=== PATIENT | female | born 1980 | race Caucasian/White ===

== ENCOUNTER → 2019-05-22 12:35 | Outpatient (BNVA) | payer MEDICAID, SELFPAY | PROVIDERS: Family Provider Family Medicine; PCP Family Medicine; Visit Provider Nurse Practitioner | DX: R05 Cough (principal); R50.9 Fever, unspecified | CPT/HCPCS: 87804 ==

== ENCOUNTER 2020-06-16 09:14 | Outpatient (CLI) | payer MEDICAID, SELFPAY ==
[2019-05-09 11:19] VITALS: BP 164/89; BMI 54.0
--- NOTE | 2020-06-16 09:16 | MM_ITS ---
WS: [id number] Bilateral screening digital mammogram, 06/16/2020 Clinical Data: SCREENING Comparison: None. Findings: The breast parenchymal pattern shows fat replacement. No spiculated masses or clustered calcification s are seen. There are no secondary signs of carcinoma. MM/[place] [id number] Impression: 1. Negative bilateral mammogram with no prior exam for review. 2. Recommend annual screening mammograms. BIRADS: 1-Negative FOLLOW UP: 1 Year Follow-up The CAD quality checker was used.
== END 2020-06-16 09:15 | disposition home or self-care (01) ==
LOC: RADSHAW 09:15
PROVIDERS: PCP Nurse Practitioner Family; Visit Provider Nurse Practitioner Family
DX: Z12.31 Encounter for screening mammogram for malignant neoplasm of breast (principal)
CPT/HCPCS: 77067

== ENCOUNTER 2020-09-07 10:29 | Outpatient (CLI) | payer MEDICAID, SELFPAY ==
[2019-05-09 11:19] VITALS: BP 164/89; BMI 54.0
--- NOTE | 2020-09-07 10:39 | FL_ITS ---
WS: [id number] UPPER GI WITH AIR TECHNICAL: Double contrast upper GI. FLUOROSCOPY TIME: 2.5 minutes CLINICAL INFORMATION: Z71.89 - Other specified counseling COMPARISON: None. FINDINGS: Swallowing: Normal. Esophagus: Mild esophageal dysmotility. No stricture. Evidence of reflux esophagitis distal esophagus . Gastroesophageal reflux: Marked reflux is visualized to the upper thoracic esophagus and hypopharynx in the supine position. Stomach: Small esophageal hiatal hernia. Duodenum: Normal duodenal C-loop. Other findings: None. FL/FL upper GI w air* [id number] IMPRESSION: 1. Marked reflux is visualized to the upper thoracic esophagus and hypopharynx in the supine position. 2. Small esophageal hiatal hernia. 3. Otherwise normal double contrast stomach.
== END 2020-09-07 10:30 | disposition home or self-care (01) ==
PROVIDERS: PCP Nurse Practitioner Family; Visit Provider Surgery
DX: Z71.89 Other specified counseling (principal); K44.9 Diaphragmatic hernia without obstruction or gangrene; K21.9 Gastro-esophageal reflux disease without esophagitis
CPT/HCPCS: 74246

== ENCOUNTER 2020-11-01 18:58 | Inpatient (IN) | payer MEDICAID, SELFPAY ==
[2019-05-09 11:19] VITALS: BP 164/89; BMI 54.0
[2020-11-01] VITALS (8 sets, daily range): BP systolic 119–137; BP diastolic 67–97; PULSE 86–90; RESP 20–25; TEMP 36.8; O2SAT 81–94; BMI 50.6
--- NOTE | 2020-11-01 19:34 | ECG_ITS ---
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 Measurements Intervals [place] Rate: 91 P: 38 WA: 137 QRS: 40 QRSD: 88 T: 51 QT: 351 QTc: 434 Interpretive Statements SINUS RHYTHM LOW QRS VOLTAGE IN PRECORDIAL LEADS [QRS DEFLECTION < 1.0 mV IN CHEST LEADS] POSSIBLE RIGHT VENTRICULAR CONDUCTION DELAY [RSR (QR) IN V1/V2] No previous ECG available for comparison Electronically Signed On 11-05-2020 9:56:41 CDT by Alona Lacey M.D. [id number]
--- NOTE | 2020-11-01 19:34 | XRR_ITS ---
PROCEDURE INFORMATION: Exam: XR Chest Exam date and time: 11/01/2020 7:34 PM Age: 40 years old Clinical indication: Cough TECHNIQUE: Imaging protocol: XR of the chest. Views: 1 view. COMPARISON: CR FL upper GI w air* [id number] 09/07/2020 10:44 AM FINDINGS: Lungs: Patchy granular somewhat nodular opacities widely distributed throughout both lungs apparent. Decreased lung volumes in general. Pleural spaces: Unremarkable. No pleural effusion. No pneumothorax. Heart/Mediastinum: Unremarkable. No cardiomegaly. Bones/joints: Unremarkable. XR/XR chest 1V portable [id number] IMPRESSION: 1. Extensive airspace disease bilaterally. 2. Atypical pneumonia such as COVID-19 pneumonia is suspected.
--- NOTE | 2020-11-01 19:36 | ED_ITS ---
HPI - General Adult General: Chief complaint: Abdominal Pain Stated complaint: Cant Breathe\Family Covid + Time Seen by Provider: 11/01/20 19:29 History of Present Illness: HPI narrative: This patient is a 40-year-old female who presents to the emergency department with diabetes hypertension with a complaint of shortness of breath. Patient states she has not been accepted with Covid. Patient states that her son was diagnosed with Covid 4 days ago. States he is improving but she believes she has got it. Patient's O2 sat on room air after ambulating was 83%. We will do medical evaluation treat as needed. Patient does not have a history of asthma or any breathing related issues. Onset (ago): hour(s) Location: chest Radiation: non-radiation Severity: moderate Pain Consistency: constant Relieving factors: none Exacerbating factors: none Associated symptoms: Reports dyspnea; Deny chest pain, headache(s), nausea, rash, palpitations or vomiting Review of Systems General: Reports: 10 or more systems reviewed and unremarkable except in HPI and below Const: Reports: body aches and fatigue; Denies: fever(s) or chills Eyes: Denies: change in vision or blurry vision ENMT: Denies: throat pain, hoarseness or mouth pain Card: Denies: chest pain, palpitations, irregular heart rhythm, edema, swelling of feet/ankles or lightheadedness Resp: Reports: dyspnea and non-productive cough; Denies: productive cough, wheezing or pain on inspiration GI: Denies: abdominal pain, nausea or vomiting : Denies: flank pain, difficulty voiding, dysuria, urinary frequency, urinary urgency or urinary hesitancy Musc: Denies: neck pain, back pain, extremity pain, extremity swelling, joint pain, joint swelling, joint redness, joint warmth or limited range of motion Skin/Breast: Denies: rash, pruritus, erythema or skin tenderness Neuro: Denies: headache(s), numbness in extremities or weakness in extremities Psych: Denies: anxiety or depression PFSH ED PFSH: Family History Denies family history of Anesthesia complication Bleeding disorder Social History Smoking and tobacco status: never smoked Second hand smoke exposure: Yes Alcohol intake: current Alcohol intake frequency: holidays/special occasions only Alcohol type: wine Desire information about alcohol rehabilitation?: No Adopted: Yes Caregiver/support person: Yes Lives independently: Yes Household members: spouse and children Housing: Apartment Marital status: Number of children: 1 Number of grandchildren: 0 Highest education level completed: High School Graduate service: No Current occupational status: disabled Current occupational exposures/hazards: No Pets and animals: Yes Pets & animals: cat(s) and dog(s) Pets & animal details: 1 indoor cat and dog, 2 outdoor cats History of recent travel: No Leisure activites: reading Sexually active: Yes Current gender identity: Female Keysha/Denominational: Nondenominational Special keysha needs: No Agree to transfusion: Yes Financial difficulty paying for basics: Somewhat Hard Female Reproductive History: Date of last menstrual period: 04/29/19 Para: 1 Spontaneous abortions: No Physical Exam Const: COMMON NORMALS: no acute distress, average body habitus, patient oriented x3, no limitations, healthy appearing, alert and well nourished HENMT: COMMON NORMALS: normocephalic, atraumatic, hearing grossly normal bilaterally, external ears normal, EAC's normal, TM's normal bilaterally, Normal external nose present, Normal nasal mucous membranes and turbinates present, moist oral mucous membranes, oropharynx normal, dentition normal and gingiva normal HEAD & SCALP: normocephalic and atraumatic NOSE: Normal external nose present and Normal nasal mucous membranes and turbinates present EXTERNAL EAR: Yes external ears normal EXTERNAL AUDITORY CANAL: EAC's normal TYMPANIC MEMBRANE: TM's normal bilaterally Neck/C-Spine: COMMON NORMALS: full ROM, no lymphadenopathy, supple, no meningeal signs, no JVD, Thyroid normal and No carotid bruits THYROID: Thyroid normal Chest: COMMONS NORMALS: normal inspection of the chest, normal palpation of entire chest wall, normal inspection of the breasts and normal palpation of the breasts Breast/axilla inspection: Yes normal inspection of the breasts BREAST/AXILLA PALPATION: Yes normal palpation of the breasts Resp: COMMON NORMALS: normal respiratory effort, No retractions, No use of accessory muscles, clear to auscultation bilaterally and percussion normal AUSCULTATION: clear to auscultation bilaterally PERCUSSION: percussion normal Cardio: COMMON NORMALS: no JVD, regular rate, regular rhythm, S1 normal heart sound present, S2 normal heart sound present, No gallops present (Cardio), No clicks present (Cardio), No murmurs present (Cardio), No rub (Cardio) and Peripheral pulses 2+ throughout RATE: regular rate RHYTHM: regular rhythm HEART SOUNDS: S1 normal heart sound present and S2 normal heart sound present PERIPHERAL PULSES: Peripheral pulses 2+ throughout GI: COMMON NORMALS: Normal to inspection, nondistended, normoactive bowel sounds present, Soft to palpation, non-tender, No hepatosplenomegaly present, no masses and no bruits PALPATION: Yes Soft to palpation and Yes No hepatosplenomegaly present Back/Pelvis: COMMON NORMALS: thoracic and lumbar spine normal to inspection, no thoracic nor lumbar tenderness, thoraco-lumbar ROM normal and straight leg raise negative bilaterally Extremity: COMMON NORMALS: normal to inspection, full ROM, capillary refill normal, no joint enlargement, no clubbing, cyanosis or edema, no calf tenderness and no pedal edema Neuro: COMMON NORMALS: patient oriented x3 SENSORIUM/ORIENTATION: Yes alert MENINGEAL SIGNS: Yes no meningeal signs Course Reevaluation(s): Reevaluation #1: Patient is O2 sat is 90% on 5 to 6 L by na jorge cannula. Patient requires significant amount of oxygen. Is not on high flow oxygen at this time patient will be admitted to the hospital for Covid pneumonia. Will institute redid severe treatments. Patient states understanding Time: 22:05 Consultations: Consultation #1: Discussed at length with Dr. Webb. She states understanding will agree to admit the patient to the hospital for further evaluation treatment Time: 22:06 Vital Signs: Vital signs: Vital Signs Temperature 98.2 F 11/01/20 19:35 Pulse Rate 89 11/01/20 20:57 Respiratory Rate 20 H 11/01/20 20:55 Blood Pressure 119/71 11/01/20 19:38 Pulse Oximetry 91 11/01/20 20:55 MDM - General Adult MDM Narrative: Medical decision making narrative: his patient is a 40-year-old female who presents to the emergency department with diabetes hypertension with a complaint of shortness of breath. Patient states she has not been accepted with Covid. Patient states that her son was diagnosed with Covid 4 days ago. States he is improving but she believes she has got it. Patient's O2 sat on room air after ambulating was 83%. We will do medical evaluation treat as needed. Patient does not have a history of asthma or any breathing related issues. Patient is O2 sat is 90% on 5 to 6 L by nasal cannula. Patient requires significant amount of oxygen. Is not on high flow oxygen at this time patient will be admitted to the hospital for Covid pneumonia. Will institute redid severe treatments. Patient states understanding Discussed at length with Dr. Webb. She states understanding will agree to admit the patient to the hospital for further evaluation treatment Lab Data: Labs: Lab Results 11/01/20 11/01/20 11/01/20 Range/Units 19:51 20:30 20:30 WBC 6.5 (4.0-10.0) 10^3/ uL RBC 4.53 (4.1-5.3) 10^6/u L Hgb 13.5 (11.5-15.3) g/dL Hct 41.5 (37.0-47.0) % MCV 91.6 (81-99) fL MCH 29.8 (28.0-34.0) pg MCHC 32.5 (30.0-36.0) g/dL RDW 12.2 (12.1-15.1) % Plt Count 196 (130-400) 10^3/c mm MPV 10.4 (7.4-10.4) fL Neut % (Auto) 84.3 % Lymph % (Auto) 11.8 % Beadle % (Auto) 2.8 % Eos % (Auto) 0.0 % Baso % (Auto) 0.2 % Neut # (Auto) 5.49 (1.8-7.7) 10^3/u L Lymph # (Auto) 0.8 (0.8-4.8) 10^3/u L Beadle # (Auto) 0.2 (0.2-0.9) 10^3/u L Eos # (Auto) 0.0 (0.0-0.8) 10^3/u L Baso # (Auto) 0.0 (0.0-0.1) 10^3/u L Nucleated RBC % (a uto) 0 % Nucleated RBCs # 0.0 /100WBC PT 12.00 L (12.1-14.9) SECO NDS INR 0.86 (0.8-1.2) APTT 30.2 (23.9-36.7) SECO NDS D-Dimer 1.54 H (0-0.59) ug/mIFE U Specimen Type Arterial Sample Site Radial, left ABG pH 7.43 (7.35-7.45) ABG pCO2 36.0 (35-45) mmHg ABG pO2 70.1 L (80.0-100.0) mmH g ABG HCO3 23.7 (22-26) mmol/L ABG O2 Saturation 94.4 ABG Base Excess -0.3 (-2.0-2.0) mmol/ L Sammy Test Pos A-a O2 Gradient 18.4 H (5-10) mmHg Hematocrit 41.8 (37-47) % Hgb O2 Saturation 93.5 L (95-100) % Carboxyhemoglobin 0.7 (0.4-20.1) %THgb Methemoglobin 0.3 L (0.4-1.5) % Total Hemoglobin 13.7 (12-16) g/dL Sodium 141.0 (131-143) mmol/L Potassium 3.7 (3.5-5.0) mmol/L Glucose 154.0 H (70-115) mg/dL Ionized Calcium 1.1 (1.1-1.4) mmol/L O2 Delivery Device Nc O2 Liters/Min 4.0 % FiO2 36.0 % Pole Framer Machine ID Cak Chloride (98-107) mmol/L Carbon Dioxide (22-29) mmol/L Anion Gap (5-19) BUN (6-20) mg/dL Creatinine (0.5-0.9) mg/dL GFR Calculation (90-130) mL/min Calculated Osmolal ity (285-295) mOsm/k g Lactic Acid (0.5-2.2) mmol/L Calcium (8.5-10.5) mg/dL Total Bilirubin (0.15-1.2) mg/dL AST (0-32) U/L ALT (0-33) U/L Alkaline Phosphata se (35-105) IU/L Troponin T Gen 5 n g/L (0-10) ng/L NT-Pro-B Natriuret Pep (0-125) pg/mL Total Protein (6.6-8.7) g/dL Albumin (3.5-5.2) g/dL Globulin (1.3-4.6) g/dL Urine Color (Yellow) Urine Appearance (CLEAR) Urine pH (5-7) Ur Specific Gravit y (1.005-1.030) Urine Protein (Negative) Urine Glucose (UA) (Normal) Urine Ketones (Negative) Urine Blood (Negative) Urine Nitrate (Negative) Urine Bilirubin (Negative) Urine Urobilinogen (Negative) mg/dL Ur Leukocyte Charmaine ase (Negative) Amorphous Sediment SARS-CoV-2 Ag (Rap id) (Negative) 11/01/20 11/01/20 11/01/20 Range/Units 20:30 20:30 20:30 WBC (4.0-10.0) 10^3/ uL RBC (4.1-5.3) 10^6/u L Hgb (11.5-15.3) g/dL Hct (37.0-47.0) % MCV (81-99) fL MCH (28.0-34.0) pg MCHC (30.0-36.0) g/dL RDW (12.1-15.1) % Plt Count (130-400) 10^3/c mm MPV (7.4-10.4) fL Neut % (Auto) % Lymph % (Auto) % Beadle % (Auto) % Eos % (Auto) % Baso % (Auto) % Neut # (Auto) (1.8-7.7) 10^3/u L Lymph # (Auto) (0.8-4.8) 10^3/u L Beadle # (Auto) (0.2-0.9) 10^3/u L Eos # (Auto) (0.0-0.8) 10^3/u L Baso # (Auto) (0.0-0.1) 10^3/u L Nucleated RBC % (a uto) % Nucleated RBCs # /100WBC PT (12.1-14.9) SECO NDS INR (0.8-1.2) APTT (23.9-36.7) SECO NDS D-Dimer (0-0.59) ug/mIFE U Specimen Type Sample Site ABG pH (7.35-7.45) ABG pCO2 (35-45) mmHg ABG pO2 (80.0-100.0) mmH g ABG HCO3 (22-26) mmol/L ABG O2 Saturation ABG Base Excess (-2.0-2.0) mmol/ L Sammy Test A-a O2 Gradient (5-10) mmHg Hematocrit (37-47) % Hgb O2 Saturation (95-100) % Carboxyhemoglobin (0.4-20.1) %THgb Methemoglobin (0.4-1.5) % Total Hemoglobin (12-16) g/dL Sodium 139 (131-143) mmol/L Potassium 3.8 (3.5-5.0) mmol/L Glucose 142 H (70-115) mg/dL Ionized Calcium (1.1-1.4) mmol/L O2 Delivery Device O2 Liters/Min % FiO2 % Pole Framer Machine ID Chloride 102 (98-107) mmol/L Carbon Dioxide 22 (22-29) mmol/L Anion Gap 18.8 (5-19) BUN 11 (6-20) mg/dL Creatinine 0.5 (0.5-0.9) mg/dL GFR Calculation 136.6 H (90-130) mL/min Calculated Osmolal ity 290 (285-295) mOsm/k g Lactic Acid 0.8 (0.5-2.2) mmol/L Calcium 8.3 L (8.5-10.5) mg/dL Total Bilirubin 0.3 (0.15-1.2) mg/dL AST 92 H (0-32) U/L ALT 40 H (0-33) U/L Alkaline Phosphata se 121 H (35-105) IU/L Troponin T Gen 5 n g/L 6 (0-10) ng/L NT-Pro-B Natriuret Pep 109 (0-125) pg/mL Total Protein 6.7 (6.6-8.7) g/dL Albumin 3.6 (3.5-5.2) g/dL Globulin 3.1 (1.3-4.6) g/dL Urine Color (Yellow) Urine Appearance (CLEAR) Urine pH (5-7) Ur Specific Gravit y (1.005-1.030) Urine Protein (Negative) Urine Glucose (UA) (Normal) Urine Ketones (Negative) Urine Blood (Negative) Urine Nitrate (Negative) Urine Bilirubin (Negative) Urine Urobilinogen (Negative) mg/dL Ur Leukocyte Charmaine ase (Negative) Amorphous Sediment SARS-CoV-2 Ag (Rap id) (Negative) 11/01/20 11/01/20 Range/Units 20:36 22:18 WBC (4.0-10.0) 10^3/ uL RBC (4.1-5.3) 10^6/u L Hgb (11.5-15.3) g/dL Hct (37.0-47.0) % MCV (81-99) fL MCH (28.0-34.0) pg MCHC (30.0-36.0) g/dL RDW (12.1-15.1) % Plt Count (130-400) 10^3/c mm MPV (7.4-10.4) fL Neut % (Auto) % Lymph % (Auto) % Beadle % (Auto) % Eos % (Auto) % Baso % (Auto) % Neut # (Auto) (1.8-7.7) 10^3/u L Lymph # (Auto) (0.8-4.8) 10^3/u L Beadle # (Auto) (0.2-0.9) 10^3/u L Eos # (Auto) (0.0-0.8) 10^3/u L Baso # (Auto) (0.0-0.1) 10^3/u L Nucleated RBC % (a uto) % Nucleated RBCs # /100WBC PT (12.1-14.9) SECO NDS INR (0.8-1.2) APTT (23.9-36.7) SECO NDS D-Dimer (0-0.59) ug/mIFE U Specimen Type Sample Site ABG pH (7.35-7.45) ABG pCO2 (35-45) mmHg ABG pO2 (80.0-100.0) mmH g ABG HCO3 (22-26) mmol/L ABG O2 Saturation ABG Base Excess (-2.0-2.0) mmol/ L Sammy Test A-a O2 Gradient (5-10) mmHg Hematocrit (37-47) % Hgb O2 Saturation (95-100) % Carboxyhemoglobin (0.4-20.1) %THgb Methemoglobin (0.4-1.5) % Total Hemoglobin (12-16) g/dL Sodium (131-143) mmol/L Potassium (3.5-5.0) mmol/L Glucose (70-115) mg/dL Ionized Calcium (1.1-1.4) mmol/L O2 Delivery Device O2 Liters/Min % FiO2 % Pole Framer Machine ID Chloride (98-107) mmol/L Carbon Dioxide (22-29) mmol/L Anion Gap (5-19) BUN (6-20) mg/dL Creatinine (0.5-0.9) mg/dL GFR Calculation (90-130) mL/min Calculated Osmolal ity (285-295) mOsm/k g Lactic Acid (0.5-2.2) mmol/L Calcium (8.5-10.5) mg/dL Total Bilirubin (0.15-1.2) mg/dL AST (0-32) U/L ALT (0-33) U/L Alkaline Phosphata se (35-105) IU/L Troponin T Gen 5 n g/L (0-10) ng/L NT-Pro-B Natriuret Pep (0-125) pg/mL Total Protein (6.6-8.7) g/dL Albumin (3.5-5.2) g/dL Globulin (1.3-4.6) g/dL Urine Color Yellow (Yellow) Urine Appearance Clear (CLEAR) Urine pH 6.5 (5-7) Ur Specific Gravit y 1.000 L (1.005-1.030) Urine Protein 1+ H (Negative) Urine Glucose (UA) Norm (Normal) Urine Ketones Negative (Negative) Urine Blood 3+ H (Negative) Urine Nitrate Negative (Negative) Urine Bilirubin Neg (Negative) Urine Urobilinogen Norm (Negative) mg/dL Ur Leukocyte Charmaine ase Negative (Negative) Amorphous Sediment Not Reportable SARS-CoV-2 Ag (Rap id) Negative (Negative) Imaging Data^: CT Chest: Attestation: I personally reviewed and interpreted this imaging study as follows: My impression: IMPRESSION: 1. Negative for pulmonary embolism. 2. Widespread airspace disease. 3. Imaging features can be seen with COVID-19 pneumonia, though are nonspecific and can occur with a variety of infectious and noninfectious processes. (Reference: Pavel) 4. Incidental right adrenal gland nodule. Indeterminate characterization. 5. Non-emergent adrenal CT is recommended. (Reference: Bryant) EKG Data^: EKG 1: Attestation: I personally reviewed and interpreted this EKG as follows: EKG interpretation date: 11/01/20 EKG interpretation time: 20:24 Prior EKG tracings: not available for review Interpretation: Sinus rhythm right ventricular conduction delay heart rate 91 nondiagnostic EKG Computer generated interpretation: Chest X-Ray 11/01/20 19:34 IMPRESSION: 1. Extensive airspace disease bilaterally. 2. Atypical pneumonia such as COVID-19 pneumonia is suspected. Chest CTA 11/01/20 19:52 IMPRESSION: 1. Negative for pulmonary embolism. 2. Widespread airspace disease. 3. Imaging features can be seen with COVID-19 pneumonia, though are nonspecific and can occur with a variety of infectious and noninfectious processes. (Reference: Pavel) 4. Incidental right adrenal gland nodule. Indeterminate characterization. 5. Non-emergent adrenal CT is recommended. (Reference: Bryant) REFERENCES: 1. Bryant VELASQUEZ, et al. Management of Incidental Adrenal Masses: A White Paper of the ACR Incidental Findings Committee. J Am Nikki Radiol. 2017;14(8):7561-7376. 2. Pavel Palma, et al., Radiological Society of [place] Expert Consensus Statement on Reporting Chest CT Findings Related to COVID-19. Endorsed by the Society of Thoracic Radiology, the [place] [employer], and RSNA. Published June 26, 2019. Radiation Dose CTDIVOL = (mGy): DLP = 538.42 (mGy-cm) Discharge Plan Discharge Patient Disposition: Admitted As Inpatient Clinical Impression: Shortness of breath after severe acute respiratory syndrome coronavirus 2 (SARS-CoV-2) vaccination Condition: Stable Coding Level of Care Code ED Sba Business Development Officer for Chg Fwd Exam Comprehensive
--- NOTE | 2020-11-01 19:52 | CTR_ITS ---
PROCEDURE INFORMATION: Exam: CTA Chest With Contrast Exam date and time: 11/01/2020 7:52 PM Age: 40 years old Clinical indication: Shortness of breath; Patient HX: Covid exposure SOB elev d-dimer; Additional info: SOB with elevated ddimer TECHNIQUE: Imaging protocol: Computed tomographic angiography of the chest with contrast. 3D rendering (Not supervised by radiologist): MIP and/or 3D reconstructed images were created by the technologist. Radiation optimization: All CT scans at this facility use at least one of these dose optimization techniques: automated exposure control; mA and/or kV adjustment per patient size (includes targeted exams where dose is matched to clinical indication); or iterative reconstruction. Contrast material: OMNI 350; Contrast volume: 57 ml; Contrast route: INTRAVENOUS (IV); COMPARISON: CR (CHEST, ) 11/01/2020 7:39 PM RADIATION DOSE METRICS: Total DLP (mGy-cm): 538.42 FINDINGS: Pulmonary arteries: Normal. No pulmonary emboli. Aorta: Unremarkable. No aortic aneurysm. No aortic dissection. Lungs: Widespread ground-glass lesions throughout the lungs. No endobronchial obstruction. No peripheral honeycombing. Pleural spaces: Unremarkable. No pneumothorax. No pleural effusion. Heart: Unremarkable. No cardiomegaly. No pericardial effusion. Lymph nodes: Unremarkable. No enlarged lymph nodes. Adrenal glands: Circumscribed low-attenuation right adrenal gland nodule measures 2.4 cm x 1.6 cm. Unremarkable left adrenal gland. Bones/joints: Unremarkable. No acute fracture. Soft tissues: Unremarkable. CT/CT angio chest PE protcl [id number] IMPRESSION: 1. Negative for pulmonary embolism. 2. Widespread airspace disease. 3. Imaging features can be seen with COVID-19 pneumonia, though are nonspecific and can occur with a variety of infectious and noninfectious processes. (Reference: Pavel) 4. Incidental right adrenal gland nodule. Indeterminate characterization. 5. Non-emergent adrenal CT is recommended. (Reference: Bryant) REFERENCES: 1. Bryant VELASQUEZ, et al. Management of Incidental Adrenal Masses: A White Paper of the ACR Incidental Findings Committee. J Am Nikki Radiol. 2017;14(8):8398-8721. 2. Pavel Palma, et al., Radiological Society of [place] Expert Consensus Statement on Reporting Chest CT Findings Related to COVID-19. Endorsed by the Society of Thoracic Radiology, the [place] [employer], and RSNA. Published June 26, 2019. Radiation Dose CTDIVOL = (mGy): DLP = 538.42 (mGy-cm)
[2020-11-01] MEDS: dexamethasone 10 mg/mL INJ 6 MG IV (20:00)
[2020-11-01 20:02] LABS: ABG PH Result 7.43 (7.35-7.45); Alveolar-Arterial Oxygen Gradi 18.4 mmHg (5-10); Arterial Blood Gas Hematocrit 41.8 % (37-47); Base Excess ABG -0.3 mmol/L (-2.0-2.0); Blood Gas Allen Test Pos; Blood Gas Operator Identificat CAK; Blood Gas Sample Site Radial, left; Blood Gas Sample Type Arterial; Carboxyhemoglobin 0.7 %THgb (0.4-20.1); HCO3 ABG 23.7 mmol/L (22-26); HGB O2 Sat 93.5 % (95-100); Ionized Calcium Level - ABG 1.1 mmol/L (1.1-1.4); Methemoglobin 0.3 % (0.4-1.5); Oxygen Device NC; Oxygen Saturation ABG 94.4; PO2 ABG 70.1 mmHg (80.0-100.0); Potassium Level - ABG 3.7 mmol/L (3.5-5.0); Total Hemoglobin 13.7 g/dL (12-16)
[2020-11-01] MEDS: acetaminophen 325 mg Tablet 650 MG PO (20:05)
[2020-11-01] MEDS: albuterol 8 gm MDI 2 PUFF INHALATION (20:51)
[2020-11-01 20:56] LABS: Basophils % 0.2 %; Hematocrit 41.5 % (37.0-47.0); Hemoglobin 13.5 g/dL (11.5-15.3); Lymphocytes # 0.8 10^3/uL (0.8-4.8); Lymphocytes % 11.8 %; Mean Corpuscular HGB Conc 32.5 g/dL (30.0-36.0); Mean Corpuscular Hemoglobin 29.8 pg (28.0-34.0); Mean Corpuscular Volume 91.6 fL (81-99); Mean Platelet Volume 10.4 fL (7.4-10.4); Monocytes # 0.2 10^3/uL (0.2-0.9); Monocytes % 2.8 %; Neutrophils # 5.49 10^3/uL (1.8-7.7); Neutrophils % 84.3 %; Nucleated Red Blood Cells % 0 %; Platelet Count 196 10^3/cmm (130-400); Red Blood Count 4.53 10^6/uL (4.1-5.3); Red Cell Distribution Width 12.2 % (12.1-15.1); White Blood Count 6.5 10^3/uL (4.0-10.0)
[2020-11-01 20:59] LABS: INR 0.86 (0.8-1.2); Partial Thromboplastin Time 30.2 SECONDS (23.9-36.7)
[2020-11-01 21:02] LABS: D Dimer 1.54 ug/mIFEU (0-0.59)
[2020-11-01 21:03] LABS: Lactic Sepsis W/Reflex 0.8 mmol/L (0.5-2.2)
[2020-11-01 21:06] LABS: Troponin T (5th) Once 6 ng/L (0-10)
[2020-11-01 21:15] LABS: Alanine Aminotransferase 40 U/L (0-33); Albumin Level 3.6 g/dL (3.5-5.2); Alkaline Phosphatase 121 IU/L (35-105); Anion Gap 18.8 (5-19); Aspartate Amino Transferase 92 U/L (0-32); Blood Urea Nitrogen 11 mg/dL (6-20); Calcium 8.3 mg/dL (8.5-10.5); Carbon Dioxide 22 mmol/L (22-29); Chloride 102 mmol/L (98-107); Globulin 3.1 g/dL (1.3-4.6); Glomerular Filtration Rate 136.6 mL/min (90-130); Glucose 142 mg/dL (65-115); NT Pro B Type Natriuretic Pept 109 pg/mL (0-125); Osmolality Calculated 290 mOsm/kg (285-295); Potassium 3.8 mmol/L (3.5-5.1); Sodium 139 mmol/L (136-145); Total Bilirubin 0.3 mg/dL (0.15-1.2); Total Protein 6.7 g/dL (6.6-8.7)
[2020-11-01 21:34] LABS: Slide Review Slide Review Perform
[2020-11-01] MEDS: iohexol 350 mg/mL 100 mL Btl IV (21:39)
[2020-11-01 22:35] LABS: Add Urine Microscopic? YES; Bilirubin Urine Neg (Negative); Blood Urine 3+ (Negative); Glucose Urine UA Norm (Normal); Ketones Urine Negative (Negative); Leukocyte Esterase Urine Negative (Negative); Nitrate Urine Negative (Negative); Protein Urine 1+ (Negative); Urine Appearance Clear (CLEAR); Urine Color Yellow (Yellow); Urobilinogen Urine Norm (Negative); pH Urine 6.5 (5-7)
[2020-11-01 22:37] LABS: SARS Covid-2 Antigen Negative (Negative)
[2020-11-01 22:58] LABS: Add Urine Culture? No; Bacteria Urine 1+ /hpf; Squamous Epithelial Cell Urine 15-25 /hpf (0-5); WBC Urine 0-4 /hpf (0-5)
[2020-11-01] MEDS: remdesivir 200 MG in sodium chloride 0.9% (100 ml) 100 ML 100 MG IV (23:05)
[2020-11-02] VITALS (13 sets, daily range): BP systolic 108–149; BP diastolic 69–94; PULSE 70–94; RESP 17–29; TEMP 36.6–37.9; O2SAT 81–99
[2020-11-02] MEDS: guaiFENesin-codeine UDC 10 mL PO (06:01)
--- NOTE | 2020-11-02 06:04 | PM.HP ---
Providers/Chief Complaint Admitting Physician: Emperatriz Webb MD Primary Care Provider: Salma Craft Chief Complaint: Covid+ Results Cant breathe History of Present Illness Bridget Rouse is a 40 year old female with PMH DM presenting with shortness of breath, cough over the past week, son tested positive for COVID 4 days ago. She has not been tested prior. Rapid Coid ag negative, PCR pending. CTa chest without PE but shows extensive B/L GGOS most likely to be COVID 19 pneumonia. She was saturating 81% on room air, started on supplemental 02 at 2lpm. Review of Systems General: Reports: 10 or more systems reviewed and unremarkable except in HPI and below Const: Denies: fever(s), chills or body aches Eyes: Denies: change in vision, blurry vision or photophobia ENMT: Reports: hoarseness; Denies: throat pain, enlarged tonsils, odynophagia or nasal congestion Card: Denies: chest pain, palpitations, irregular heart rhythm, edema, swelling of feet/ankles, lightheadedness, pre-syncope, dyspnea on exertion or orthopnea Resp: Denies: dyspnea, productive cough, non-productive cough, wheezing, stridor, pain on inspiration, change in phlegm color, hemoptysis or chest congestion GI: Denies: abdominal pain, nausea, vomiting, hematemesis, coffee ground emesis, dysphagia, heartburn, diarrhea, constipation, GI cramping, change in stool character, hematochezia or melena : Denies: flank pain, difficulty voiding, dysuria, urinary frequency, urinary urgency, urinary hesitancy or hematuria Musc: Denies: neck pain, back pain, extremity pain, joint swelling, joint warmth or deformity Neuro: Denies: headache(s), numbness in extremities, weakness in extremities, sensory changes, difficulty walking, frequent falls, dizziness, vertigo, behavioral changes, Slurred speech present or seizure-like activity Psych: Denies: anxiety, depression, suicidal ideation or homicidal ideation Endo: Denies: polyuria, polydipsia, tired all the time, cold intolerance or hot flashes Deepak/Lymph: Denies: easy bruising or easy bleeding Medications/Allergies Home Medications Medication Instructions Recorded Confirmed Last Taken Type lisinopril 5 mg tablet 5 mg PO DAILY 06/11/20 09/25/20 Unknown History metformin 500 mg tablet 500 mg PO DAILY 06/11/20 09/25/20 Unknown History loratadine 10 mg tablet 10 mg PO DAILY 07/23/20 09/25/20 Unknown History atorvastatin 10 mg tablet 20 mg PO DAILY tab 08/20/20 09/25/20 Unknown History Allergies Allergy/AdvReac Type Severity Reaction Status Date / Time cephalexin [From Keflex] Allergy red Verified 11/01/20 19:38 splotches PFSH Acute PFSH: Medical History (Updated 11/02/20 @ 06:23 by Emperatriz Webb MD) Diabetes GERD (gastroesophageal reflux disease) Hyperlipidemia Hypertension Major depressive disorder, recurrent, moderate Surgical History (Updated 11/02/20 @ 06:18 by Emperatriz Webb MD) History of bilateral tubal ligation Hx of emergency section Family History Denies family history of Anesthesia complication Bleeding disorder Social History Smoking and tobacco status: never smoked Second hand smoke exposure: Yes Alcohol intake: current Alcohol intake frequency: holidays/special occasions only Alcohol type: wine Desire information about alcohol rehabilitation?: No Adopted: Yes Caregiver/support person: Yes Lives independently: Yes Household members: spouse and children Housing: Apartment Marital status: Number of children: 1 Number of grandchildren: 0 Highest education level completed: High School Graduate service: No Current occupational status: disabled Current occupational exposures/hazards: No Pets and animals: Yes Pets & animals: cat(s) and dog(s) Pets & animal details: 1 indoor cat and dog, 2 outdoor cats History of recent travel: No Leisure activites: reading Sexually active: Yes Current gender identity: Female Keysha/Jehovah'S Witness: Hinduism Special keysha needs: No Agree to transfusion: Yes Financial difficulty paying for basics: Somewhat Hard Female Reproductive History: Date of last menstrual period: 04/29/19 Para: 1 Spontaneous abortions: No Vitals/I&O/Wt Last Vital Signs Temp 98.2 F 11/01/20 19:35 Pulse 80 11/02/20 00:38 Resp 19 H 11/02/20 00:38 BP 139/69 11/02/20 00:38 Pulse Ox 92 08/02/21 00:38 11/01/20 11/01/20 11/02/20 14:59 22:59 06:59 Intake Total 100 / 100 Balance 100 / 100 Weight last 48 hrs Weight 121.563 kg Physical Exam Narrative: EXAM NARRATIVE: General: No acute distress, AO x3 HEENT: PERRLA, pupils bilaterally equal and reactive, pallors not present Chest: B/L coarse breath sounds to auscultation CVS: S1-S2 regular, no murmurs, no tachycardia, no gallops, no rubs Abdomen: Soft, nontender, no organomegaly, bowel sounds present Neuro: No focal deficits, no facial deformity, AO x3, power 5/5 in all limbs Data : 11/01/20 20:30 11/01/20 20:30 Micro: Microbiology 11/01/20 20:30 Blood Culture - Preliminary Blood SPECIMEN COLLECTED 11/01/20 20:15 Blood Culture - Preliminary Blood SPECIMEN COLLECTED A&P Assessment and plan (1) Acute respiratory failure: New 02 requirement at 5lpm CT chest with extensive B/L chest infiltrates, appearing to be most consistent with COVID 19 pneumonia, start presumptive treatment Remdisivir 200mg iv x 1 followed by 100mg iv daily dexamethasone 6mg IVP daily duoneb q6h, budesonide q12h empiric levofloxacin Flutter valve/spirometer at bedside trend inflammatory markers including CRP, LDH, D dimer, Ferritin CTA PE negative for PE Status: Acute (2) Diabetes: Low dose insulin sliding scale Status: Acute Attestations Medical Necessity Statement*: anticipate >2midnight for management acute respiartory failure, presumptively from COVID 19 pneumonia Coding Level of Care Code Acute Environmental Health Physician for [facility] Diagnoses Acute respiratory failure J96.00 Diabetes E11.9
[2020-11-02 06:40] LABS: Glucose Point of Care 172 mg/dL (70-110)
[2020-11-02] MEDS: dexamethasone 4 mg/mL INJ 6 MG IVP (07:31)
--- NOTE | 2020-11-02 08:44 | PM.PN ---
Subjective Subjective: Interval history: Got significantly winded trying to get over from bed to commode and then back. Reports few episodes of cough. Clear sputum. Denies nausea vomiting or diarrhea. No headache, apart from when she coughs. Vitals/I&O/Wt Last Vital Signs Temp 98.2 F 11/01/20 19:35 Pulse 70 11/02/20 07:34 Resp 18 11/02/20 07:34 BP 108/69 11/02/20 07:34 Pulse Ox 89 L 11/02/20 07:34 11/01/20 11/02/20 11/02/20 22:59 06:59 14:59 Intake Total 100 / 100 Balance 100 / 100 Weight last 48 hrs Weight 121.563 kg Physical Exam Const: COMMON NORMALS: no acute distress and patient oriented x3 NUTRITIONAL APPEARANCE: obese morbidly obese OTHER: Out of breath after transferring from commode to bedside. HENMT: COMMON NORMALS: oropharynx normal Neck/C-Spine: COMMON NORMALS: no JVD Resp: COMMON NORMALS: normal respiratory effort and clear to auscultation bilaterally AUSCULTATION: clear to auscultation bilaterally Cardio: COMMON NORMALS: no JVD, regular rhythm, S1 normal heart sound present, S2 normal heart sound present and No murmurs present (Cardio) RHYTHM: regular rhythm HEART SOUNDS: S1 normal heart sound present and S2 normal heart sound present GI: COMMON NORMALS: Normal to inspection, nondistended, normoactive bowel sounds present, Soft to palpation and non-tender PALPATION: Yes Soft to palpation Extremity: COMMON NORMALS: no joint enlargement and no pedal edema Neuro: COMMON NORMALS: patient oriented x3 and moves all extremities Skin: COMMON NORMALS: no rashes or lesions noted GENERAL SKIN EXAM: no rashes or lesions noted Data : 11/01/20 20:30 11/01/20 20:30 Micro: Microbiology 11/01/20 20:30 Blood Culture - Preliminary Blood SPECIMEN COLLECTED 11/01/20 20:15 Blood Culture - Preliminary Blood SPECIMEN COLLECTED A&P Assessment and plan (1) Acute respiratory failure: Presumed COVID-19 pneumonia based on symptoms, imaging findings. Continue remdesivir, Decadron. Oxygen requirement has increased to 10 L of high flow cannula. She got significantly winded try to get to the commode. Continue briefly with Levaquin. Place Hope for accurate I&O. Continue nebulizer, incentive spirometry, flutter valve. No PE on CTA PE protocol Reassess inflammatory markers, D-dimer. Status: Acute (2) Diabetes: Low dose insulin sliding scale Status: Acute Attestations Medical Necessity Statement*: Continue admission for assessment management of acute respiratory failure with hypoxia, empiric treatment for severe COVID-19 pneumonia. Coding Level of Care Code Acute Cryptographic Technician for [facility] Diagnoses Acute respiratory failure J96.00 Diabetes E11.9
[2020-11-02 09:52] LABS: Glucose Point of Care 186 mg/dL (70-110)
[2020-11-02 10:53] LABS: ABG PCO2 35.8 mmHg (35-45); ABG PH Result 7.43 (7.35-7.45); Arterial Blood Gas Hematocrit 42.4 % (37-47); Base Excess ABG -0.6 mmol/L (-2.0-2.0); Blood Gas Allen Test Pos; Blood Gas Operator Identificat glc; Blood Gas Sample Site Radial, left; Blood Gas Sample Type Arterial; HCO3 ABG 23.4 mmol/L (22-26); Oxygen Device NC; PO2 ABG 56.4 mmHg (80.0-100.0)
[2020-11-02 10:55] LABS: Blood Gas CCRB Time 1100
[2020-11-02] MEDS: levoFLOXacin 750 mg Tablet PO (11:15)
[2020-11-02] MEDS: LORazepam 2 mg/mL INJ 1 mL 1 MG IVP (11:15)
[2020-11-02] MEDS: pantoprazole DR 40 mg Tablet PO (11:15)
[2020-11-02] MEDS: lisinopril 5 mg Tablet PO (16:58)
[2020-11-02] MEDS: enoxaparin 40 mg/0.4 mL Syringe SUBCUT (16:58)
[2020-11-02] MEDS: benzonatate 100 mg Capsule PO (16:58)
[2020-11-02 17:21] LABS: Coronavirus Test Green County Detected
[2020-11-02 17:36] LABS: Glucose Point of Care 134 mg/dL (70-110)
[2020-11-02] MEDS: remdesivir 100 MG in sodium chloride 0.9% (100 ml) 100 ML IV (18:48)
--- NOTE | 2020-11-02 20:36 | PC.NURSE ---
Patient's oxygen saturation currently 86 percent on high flow. RT notified.
[2020-11-02] MEDS: ipratropium-albuterol 3 mL Neb INHALATION ×2 (20:53→20:56)
[2020-11-02] MEDS: budesonide 0.5 mg/2 mL Neb INHALATION (20:54)
[2020-11-02 21:26] LABS: Glucose Point of Care 153 mg/dL (70-110)
--- NOTE | 2020-11-02 21:32 | PC.NURSE ---
Patient c/o headache and back pain. Dr. Suh notified Tylenol q6 hour 500 mg PRN ordered. RT states patient was moved from 75 percent to 80 percent high flow. Patient's oxygen saturation went from 86 percent to 88 percent. Will monitor.
[2020-11-02] MEDS: ALPRAZolam 0.5 mg Tablet PO (21:47)
[2020-11-02] MEDS: acetaminophen 500 mg Tablet PO (21:47)
--- NOTE | 2020-11-02 23:36 | PC.NURSE ---
Patient still c/o lower back pain. Patient states the Tylenol did not help. Patient states she does not have back pain at home and that the pain stated from laying in the ER bed. Patient has been repositioned with no improvement. Dr. Suh notified.
[2020-11-03] VITALS (19 sets, daily range): BP systolic 139–161; BP diastolic 81–95; PULSE 51–86; RESP 18–28; TEMP 36.6–37.1; O2SAT 88–95
--- NOTE | 2020-11-03 00:02 | PC.NURSE ---
Patient asked to stretch her back. Patient stood at side of bed with assistance. Patient stated that this helped her back. Patient was then positioned to right side will pillows placed. Will monitor.
--- NOTE | 2020-11-03 00:55 | PC.NURSE ---
Patient is currently resting with eyes closed. Will monitor.
[2020-11-03] MEDS: ipratropium-albuterol 3 mL Neb INHALATION ×2 (02:50→08:20)
[2020-11-03] MEDS: dexamethasone 4 mg/mL INJ 6 MG IVP (03:12)
[2020-11-03] MEDS: benzonatate 100 mg Capsule PO (03:12)
[2020-11-03] MEDS: acetaminophen 500 mg Tablet PO (03:12)
[2020-11-03] MEDS: LORazepam 2 mg/mL INJ 1 mL 1 MG IVP ×2 (03:49→20:49)
[2020-11-03 04:25] LABS: Hematocrit 38.6 % (37.0-47.0); Hemoglobin 12.4 g/dL (11.5-15.3); Mean Corpuscular HGB Conc 32.1 g/dL (30.0-36.0); Mean Corpuscular Hemoglobin 29.7 pg (28.0-34.0); Mean Corpuscular Volume 92.6 fL (81-99); Mean Platelet Volume 9.8 fL (7.4-10.4); Platelet Count 260 10^3/cmm (130-400); Red Blood Count 4.17 10^6/uL (4.1-5.3); Red Cell Distribution Width 12.4 % (12.1-15.1)
--- NOTE | 2020-11-03 04:25 | PC.NURSE ---
Patient earlier stated that she felt anxious. PRN Ativan given. Patient is currently resting with eyes closed. Oxygen saturation 92 percent. RR 19. Will monitor.
[2020-11-03 04:47] LABS: Alanine Aminotransferase 29 U/L (0-33); Albumin Level 3.2 g/dL (3.5-5.2); Alkaline Phosphatase 86 IU/L (35-105); Anion Gap 15.8 (5-19); Aspartate Amino Transferase 61 U/L (0-32); Blood Urea Nitrogen 13 mg/dL (6-20); C Reactive Protein 62.2 mg/L (0.0-4.9); Calcium 8.4 mg/dL (8.5-10.5); Carbon Dioxide 23 mmol/L (22-29); Chloride 105 mmol/L (98-107); Creatinine Clr Calc Pharmacy 152.1051; Globulin 3.6 g/dL (1.3-4.6); Glomerular Filtration Rate 110.7 mL/min (90-130); Glucose 139 mg/dL (65-115); Osmolality Calculated 292 mOsm/kg (285-295); Potassium 3.8 mmol/L (3.5-5.1); Sodium 140 mmol/L (136-145); Total Bilirubin 0.2 mg/dL (0.15-1.2); Total Protein 6.8 g/dL (6.6-8.7)
[2020-11-03 05:05] LABS: Slide Review Slide Review Perform
[2020-11-03 05:06] LABS: Absolute Neutrophil 8.6 10^3/cmm (1.4-6.5); Absolute Segmented Neutrophil 7.3 10/cmm (1.6-7.1); Band Neutrophils Absolute 1.3 10^3/cmm (0.0-1.2); Eosinophils 0 %; Lymphocytes 8 %; Lymphocytes Absolute 0.8 10^3/cmm (1.2-3.4); Monocytes Absolute 0.6 10^3/cmm (0.1-0.6); Platelet Estimate Normal (Normal); Procalcitonin 0.07 ng/mL (0-0.5); Segmented Neutrophils 73 %; Total Cells Counted 100 (0-100)
[2020-11-03 05:18] LABS: Lactate Dehydrogenase 591 U/L (135-214)
[2020-11-03 05:31] LABS: Ferritin 1083 ng/mL (15-150)
--- NOTE | 2020-11-03 06:00 | USCV_ITS ---
Bridget Rouse Age: 40 Gender: F : 1980 Exam Date: 11/03/2020 07:56 Ordering Phys: Lars Robbins MD Technologist: [place] [facility] [place] COVID BP: 161 / 82 HR: 70 Rhythm: Sinus Technical Quality: Adequate MEASUREMENTS (Male / Female) Normal Values 2D ECHO LV Diastolic Diameter PLAX 3.7 cm 4.2 - 5.9 / 3.9 - 5.3 cm LV Systolic Diameter PLAX 2.2 cm IVS Diastolic Thickness 0.9 cm 0.6 - 1.0 / 0.6 - 0.9 cm IVS Systolic Thickness 1.3 cm LVPW Diastolic Thickness 1.1 cm 0.6 - 1.0 / 0.6 - 0.9 cm LVPW Systolic Thickness 1.4 cm LVOT Diameter 2.0 cm LV Ejection Fraction 2D Teich 72.1 % LV Ejection Fraction MOD 2C 60.2 % LV Ejection Fraction 2C AL 61.0 % LA Diameter 3.1 cm LA Width 3.8 cm LA Height 3.7 cm RA Width 3.2 cm RA Height 3.6 cm Aorta at Sinotubular Diameter 2.4 cm DOPPLER AV Peak Velocity 156.0 cm/s LVOT Peak Velocity 109.0 cm/s AV Area Cont Eq vti 2.6 cm squared AV Area Cont Eq pk 2.2 cm squared MV Area PHT 5.0 cm squared Mitral E to A Ratio 1.3 MV E' Velocity 58.5 cm/s Mitral E to MV E' Ratio 10.5 Mitral E to LV E' Lateral Ratio 9.9 Mitral E to LV E' Septal Ratio 11.1 TR Peak Velocity 123.2 cm/s TR Peak Gradient 6.1 mmHg TV Peak E Velocity 83.0 cm/s Right Atrial Pressure 3.0 mmHg Pulmonary Artery Systolic Pressu 9.1 mmHg PV Peak Velocity 97.0 cm/s FINDINGS Left Ventricle Normal left ventricular size, systolic function and wall thickness, with no regional wall motion abnormalities. Left ventricular ejection fraction is estimated at 65 %. Normal diastolic function. Right Ventricle Normal right ventricular size and systolic function. Right ventricular systolic pressure 11 mmHg. Right Atrium Normal right atrial size. Left Atrium Mildly increased left atrial size. Mitral Valve Mildly thickened mitral valve. No mitral valve stenosis. No significant mitral valve regurgitation. Aortic Valve Probably tricuspid aortic valve. No aortic valve stenosis. No aortic valve regurgitation. Tricuspid Valve Structurally normal tricuspid valve. No tricuspid valve stenosis. Mild tricuspid valve regurgitation. Pulmonic Valve Pulmonic valve not well visualized. No pulmonary valve stenosis. Pericardium No pericardial effusion. Aorta Normal-sized aortic root. CONCLUSIONS 1. Normal left ventricular size, systolic function and wall thickness, with no regional wall motion abnormalities. Left ventricular ejection fraction is estimated at 65 %. Normal diastolic function. 2. Normal right ventricular size and systolic function. 3. Mildly increased left atrial size. 4. Mild tricuspid valve regurgitation. 5. No prior similar studies to compare. Alona Lacey MD (Electronically Signed) Final Date: 03 November 2020 13:28 S
[2020-11-03 07:06] LABS: Glucose Point of Care 156 mg/dL (70-110)
[2020-11-03] MEDS: budesonide 0.5 mg/2 mL Neb INHALATION (08:20)
--- NOTE | 2020-11-03 09:02 | P.PN_ITS ---
Subjective Subjective: Interval history: She is having malaise, some nausea. Headache. Coughing. No chest pain. Vitals/I&O/Wt Last Vital Signs Temp 98.1 F 11/03/20 03:10 Pulse 74 11/03/20 04:20 Resp 24 H 11/03/20 03:10 BP 145/81 11/03/20 03:10 Pulse Ox 90 11/03/20 03:10 11/02/20 11/03/20 11/03/20 22:59 06:59 14:59 Intake Total 680 / 680 60 / 740 Output Total 780 / 780 400 / 1180 Balance -100 / -100 -340 / -440 Weight last 48 hrs Weight 121.563 kg Physical Exam Const: COMMON NORMALS: no acute distress and patient oriented x3 GENERAL APPEARANCE: anxious NUTRITIONAL APPEARANCE: obese morbidly obese HENMT: COMMON NORMALS: oropharynx normal Neck/C-Spine: COMMON NORMALS: no JVD Resp: COMMON NORMALS: normal respiratory effort and clear to auscultation bilaterally AUSCULTATION: clear to auscultation bilaterally Cardio: COMMON NORMALS: no JVD, regular rhythm, S1 normal heart sound present, S2 normal heart sound present and No murmurs present (Cardio) RHYTHM: regular rhythm HEART SOUNDS: S1 normal heart sound present and S2 normal heart sound present GI: COMMON NORMALS: Normal to inspection, nondistended, normoactive bowel sounds present, Soft to palpation and non-tender PALPATION: Yes Soft to pa lpation Extremity: COMMON NORMALS: no joint enlargement and no pedal edema Neuro: COMMON NORMALS: patient oriented x3 and moves all extremities Skin: COMMON NORMALS: no rashes or lesions noted GENERAL SKIN EXAM: no rashes or lesions noted Urinary Catheter Management^: Hope: Cath Placed During This Visit: yes Reason for Continuing Indwelling Catheter: Acute Urinary Retention or Obstruction Urinary Catheter Date of Insertion: 11/02/20 Urinary Catheter Time of Insertion: 08:45 Data : 11/03/20 04:03 11/03/20 04:03 Micro: Microbiology 11/01/20 20:15 Blood Culture - Preliminary Blood NEGATIVE TO DATE 11/01/20 20:30 Blood Culture - Preliminary Blood NEGATIVE TO DATE A&P Assessment and plan (1) Acute respiratory failure: Severe COVID-19. Confirmed by PCR. Worsening oxygen requirement, FiO2 requirement up to 80%. Discussed with her in addition to Decadron, remdesivir regarding risks and potential benefits, alternatives of treatment with tocilizumab. She is interested in proceeding. Requested. Monitor liver parameters, blood counts. Continue remdesivir, Decadron. Continue empirically with Levaquin. Hope Albuterol, Advair, incentive spirometry, flutter valve. Tessalon Perles Xanax for anxiety as needed No PE on CTA PE protocol Reassess inflammatory markers, D-dimer. Status: Acute (2) Diabetes: Low dose insulin sliding scale Status: Acute Attestations Medical Necessity Statement*: Continue admission for assessment of management of hypoxic respiratory failure with severe COVID-19. Coding Level of Care Code Acute Stretcher Helper for [facility] Diagnoses Acute respiratory failure J96.00 Diabetes E11.9
[2020-11-03] MEDS: ALPRAZolam 0.5 mg Tablet PO (09:10)
[2020-11-03] MEDS: pantoprazole DR 40 mg Tablet PO (09:11)
[2020-11-03] MEDS: levoFLOXacin 750 mg Tablet PO (09:11)
[2020-11-03] MEDS: atorvastatin 40 mg Tablet 20 MG PO (09:11)
[2020-11-03] MEDS: lisinopril 5 mg Tablet PO (09:11)
[2020-11-03 10:56] LABS: Glucose Point of Care 157 mg/dL (70-110)
[2020-11-03] MEDS: enoxaparin 40 mg/0.4 mL Syringe SUBCUT (11:17)
[2020-11-03 16:28] LABS: Glucose Point of Care 149 mg/dL (70-110)
[2020-11-03] MEDS: albuterol 8 gm MDI 2 PUFF INHALATION ×2 (16:30→21:03)
--- NOTE | 2020-11-03 18:00 | PC.NURSE ---
Shift Note Frequent safety and comfort rounds continue. Orders and/or nursing care completed as indicated. Patient monitored for response to intervention and treatment(s). Education provided includes oxygen safety, deep breathing and coughing every hour, and the importance of sitting up to the chair as often as possible. Patient and/or inbound customer service representative receptive to education and cooperative. Will continue to monitor.
[2020-11-03] MEDS: remdesivir 100 MG in sodium chloride 0.9% (100 ml) 100 ML IV (18:11)
--- NOTE | 2020-11-03 19:59 | PC.NURSE ---
Shift Note Frequent safety and comfort rounds continue. Orders and/or nursing care completed as indicated. Patient monitored for response to intervention and treatment(s). Education provided includes[]. Patient and/or player services representative[]. Will continue to monitor. Patient resting in bed with heated high flow at 90%.
[2020-11-03 23:18] LABS: Glucose Point of Care 156 mg/dL (70-110)
[2020-11-04] VITALS (14 sets, daily range): BP systolic 146–156; BP diastolic 88–94; PULSE 50–75; RESP 18–32; TEMP 36.6–37.1; O2SAT 86–94
[2020-11-04 04:50] LABS: Basophils % 0.3 %; Hematocrit 38.8 % (37.0-47.0); Hemoglobin 12.3 g/dL (11.5-15.3); Lymphocytes # 1.1 10^3/uL (0.8-4.8); Lymphocytes % 12.1 %; Mean Corpuscular HGB Conc 31.7 g/dL (30.0-36.0); Mean Corpuscular Hemoglobin 29.6 pg (28.0-34.0); Mean Corpuscular Volume 93.3 fL (81-99); Mean Platelet Volume 9.6 fL (7.4-10.4); Monocytes # 0.6 10^3/uL (0.2-0.9); Monocytes % 6.8 %; Neutrophils # 7.09 10^3/uL (1.8-7.7); Neutrophils % 78.7 %; Nucleated Red Blood Cells % 0 %; Platelet Count 291 10^3/cmm (130-400); Red Blood Count 4.16 10^6/uL (4.1-5.3); Red Cell Distribution Width 12.3 % (12.1-15.1)
[2020-11-04] MEDS: dexamethasone 4 mg/mL INJ 6 MG IVP (04:56)
[2020-11-04 05:03] LABS: D Dimer 1.22 ug/mIFEU (0-0.59)
[2020-11-04 05:16] LABS: Slide Review Slide Review Perform
[2020-11-04 05:19] LABS: Alanine Aminotransferase 24 U/L (0-33); Albumin Level 3.1 g/dL (3.5-5.2); Alkaline Phosphatase 83 IU/L (35-105); Anion Gap 14.3 (5-19); Aspartate Amino Transferase 45 U/L (0-32); Blood Urea Nitrogen 19 mg/dL (6-20); C Reactive Protein 21.2 mg/L (0.0-4.9); Calcium 8.4 mg/dL (8.5-10.5); Carbon Dioxide 25 mmol/L (22-29); Chloride 106 mmol/L (98-107); Globulin 3.4 g/dL (1.3-4.6); Glomerular Filtration Rate 136.6 mL/min (90-130); Glucose 130 mg/dL (65-115); Osmolality Calculated 296 mOsm/kg (285-295); Potassium 4.3 mmol/L (3.5-5.1); Sodium 141 mmol/L (136-145); Total Bilirubin 0.2 mg/dL (0.15-1.2); Total Protein 6.5 g/dL (6.6-8.7)
[2020-11-04 06:31] LABS: Glucose Point of Care 146 mg/dL (70-110)
[2020-11-04] MEDS: lisinopril 5 mg Tablet PO (08:06)
[2020-11-04] MEDS: atorvastatin 40 mg Tablet 20 MG PO (08:06)
[2020-11-04] MEDS: levoFLOXacin 750 mg Tablet PO (08:06)
[2020-11-04] MEDS: pantoprazole DR 40 mg Tablet PO (08:06)
[2020-11-04] MEDS: albuterol 8 gm MDI 2 PUFF INHALATION ×4 (08:55→19:15)
--- NOTE | 2020-11-04 09:27 | PM.PN ---
Subjective Subjective: Interval history: FiO2 requirement increased overnight up to 100% on high flow cannula. This morning, however, she is feeling little better. She transferred up to the chair with help. States she felt a little wobbly , but did not get extremely exhausted, did not have any presyncopal symptoms. Denies any chest pain. She is coughing up some phlegm, yellowish-green. Vitals/I&O/Wt Last Vital Signs Temp 97.9 F 11/04/20 07:49 Pulse 67 11/04/20 08:56 Resp 24 H 11/04/20 08:56 BP 151/94 11/04/20 07:49 Pulse Ox 89 L 11/04/20 08:56 11/03/20 11/04/20 11/04/20 22:59 06:59 14:59 Intake Total 100 / 200 200 / 400 360 / 360 Output Total 900 / 900 Balance 100 / 200 -700 / -500 360 / 360 Physical Exam Const: COMMON NORMALS: no acute distress and patient oriented x3 GENERAL APPEARANCE: anxious NUTRITIONAL APPEARANCE: obese morbidly obese HENMT: COMMON NORMALS: oropharynx normal Neck/C-Spine: COMMON NORMALS: no JVD Resp: COMMON NORMALS: normal respiratory effort and clear to auscultation bilaterally AUSCULTATION: clear to auscultation bilaterally Cardio: COMMON NORMALS: no JVD, regular rhythm, S1 normal heart sound present, S2 normal heart sound present and No murmurs present (Cardio) RHYTHM: regular rhythm HEART SOUNDS: S1 normal heart sound present and S2 normal heart sound present GI: COMMON NORMALS: Normal to inspection, nondistended, normoactive bowel sounds present, Soft to palpation and non-tender PALPATION: Yes Soft to palpation Extremity: COMMON NORMALS: no joint enlargement and no pedal edema Neuro: COMMON NORMALS: patient oriented x3 and moves all extremities Skin: COMMON NORMALS: no rashes or lesions noted GENERAL SKIN EXAM: no rashes or lesions noted Urinary Catheter Management^: Hope: Cath Placed During This Visit: yes Reason for Continuing Indwelling Catheter: Accurate Measurement of Urinary Output in Critically Ill Patients Urinary Catheter Date of Insertion: 11/02/20 Urinary Catheter Time of Insertion: 08:45 Data : 11/04/20 04:40 11/04/20 04:40 A&P Assessment and plan (1) Acute respiratory failure: Severe COVID-19 pneumonia. Yesterday with worsening FiO2 requirement. Received tocilizumab. Continue remdesivir, Decadron. Today's therapy appears to be decreased. Overnight FiO2 requirement did rise further 200% hypokalemic, although this morning patient able to wean down to 90%. Had transfer to the chair, and reports currently looks comfortable. Discussed with her further escalation of care in case of continued worsening of respiratory function. She understands use of BiPAP, possibly intubation mechanical ventilation in the intensive care unit. For now states she feels comfortable on the current therapy and would like to continue. Will let us know in case she is at all getting tired. Reports some yellow-green phlegm. Will request sputum culture. Continue empiric Levaquin. Place Hope for accurate I&O. Continue nebulizer, incentive spirometry, flutter valve. No PE on CTA PE protocol Reassess inflammatory markers, D-dimer. Status: Acute (2) Diabetes: Low dose insulin sliding scale Status: Acute Attestations Medical Necessity Statement*: Continue admission for cyst management of hypoxic respiratory failure with severe COVID-19. Coding Level of Care Code Acute Water Resource Consultant for [facility] Diagnoses Acute respiratory failure J96.00 Diabetes E11.9
[2020-11-04 11:40] LABS: Glucose Point of Care 155 mg/dL (70-110)
[2020-11-04] MEDS: enoxaparin 40 mg/0.4 mL Syringe SUBCUT (12:22)
[2020-11-04 16:29] LABS: Glucose Point of Care 130 mg/dL (70-110)
[2020-11-04] MEDS: remdesivir 100 MG in sodium chloride 0.9% (100 ml) 100 ML IV (18:22)
--- NOTE | 2020-11-04 19:16 | PC.NURSE ---
Shift Note Received report from SELENE Honeycutt. Frequent safety and comfort rounds continue. Orders and/or nursing care completed as indicated. Patient monitored for response to intervention and treatment(s). Education provided includes ativan and insulin. Patient and/or sales donor recruitment representative verbalized complete understanding. Patient up to chair presently with heated high flow in place. No distress observed presently. Will continue to monitor.
[2020-11-04] MEDS: LORazepam 2 mg/mL INJ 1 mL 1 MG IVP (19:21)
--- NOTE | 2020-11-04 19:24 | PC.NURSE ---
Shift Note Frequent safety and comfort rounds continue. Orders and/or nursing care completed as indicated. Patient monitored for response to intervention and treatment(s). Education provided includes medications, oxygen safety, activity level. Patient and/or food service representative has had no concerns or complaints today. Nurse assisted with personal hygiene. Will continue to monitor.
--- NOTE | 2020-11-04 21:05 | PC.NURSE ---
Patient resting in bed. Reports feeling some better. Informed patient of no need for insulin dosing due to blood sugar of 124. Patient verbalized understanding.
[2020-11-05] VITALS (32 sets, daily range): BP systolic 148–166; BP diastolic 84–94; PULSE 55–91; RESP 16–36; TEMP 36.6–36.8; O2SAT 82–93
[2020-11-05 00:32] LABS: Glucose Point of Care 124 mg/dL (70-110)
[2020-11-05 04:52] LABS: Basophils % 0.4 %; Hematocrit 38.6 % (37.0-47.0); Hemoglobin 12.4 g/dL (11.5-15.3); Lymphocytes # 1.2 10^3/uL (0.8-4.8); Mean Corpuscular HGB Conc 32.1 g/dL (30.0-36.0); Mean Corpuscular Hemoglobin 29.6 pg (28.0-34.0); Mean Corpuscular Volume 92.1 fL (81-99); Mean Platelet Volume 9.5 fL (7.4-10.4); Monocytes # 0.5 10^3/uL (0.2-0.9); Monocytes % 5.7 %; Neutrophils # 6.97 10^3/uL (1.8-7.7); Neutrophils % 77.2 %; Nucleated Red Blood Cells % 0 %; Platelet Count 283 10^3/cmm (130-400); Red Blood Count 4.19 10^6/uL (4.1-5.3); Red Cell Distribution Width 11.9 % (12.1-15.1)
[2020-11-05 05:01] LABS: D Dimer 3.72 ug/mIFEU (0-0.59)
[2020-11-05] MEDS: albuterol 8 gm MDI 2 PUFF INHALATION ×2 (05:04→09:02)
[2020-11-05] MEDS: dexamethasone 4 mg/mL INJ 6 MG IVP (05:08)
[2020-11-05 05:17] LABS: Alanine Aminotransferase 24 U/L (0-33); Alkaline Phosphatase 87 IU/L (35-105); Anion Gap 15.1 (5-19); Aspartate Amino Transferase 41 U/L (0-32); Blood Urea Nitrogen 20 mg/dL (6-20); C Reactive Protein 11.4 mg/L (0.0-4.9); Calcium 8.2 mg/dL (8.5-10.5); Carbon Dioxide 26 mmol/L (22-29); Chloride 104 mmol/L (98-107); Globulin 3.2 g/dL (1.3-4.6); Glomerular Filtration Rate 136.6 mL/min (90-130); Glucose 119 mg/dL (65-115); Osmolality Calculated 296 mOsm/kg (285-295); Potassium 4.1 mmol/L (3.5-5.1); Sodium 141 mmol/L (136-145); Total Bilirubin 0.3 mg/dL (0.15-1.2); Total Protein 6.2 g/dL (6.6-8.7)
[2020-11-05 05:28] LABS: Slide Review Slide Review Perform
--- NOTE | 2020-11-05 06:40 | PC.NURSE ---
Shift Note Frequent safety and comfort rounds continue. Orders and/or nursing care completed as indicated. Patient monitored for response to intervention and treatment. Education provided includes incentive spirometry and high flow oxygen needs. Patient verbalized complete understanding does report however needs further instruction and encouragement with the incentive spirometry. Patient reports feeling some better this morning and sleeping well last night. Will continue to monitor.
[2020-11-05 06:41] LABS: Glucose Point of Care 118 mg/dL (70-110)
--- NOTE | 2020-11-05 09:00 | PM.PN ---
Subjective Subjective: Interval history: She has been trying to get up and get around a little bit, her, discussed with her oxygen saturations have been soft. Discussed to avoid overexertion. Ask for help in case needs to do any major repositioning. At rest she appears comfortable. She does still have cough, feels congested. Coughing up some thick phlegm. Mild headache. Mild nausea. No vomiting or diarrhea. Vitals/I&O/Wt Last Vital Signs Temp 98.3 F 11/05/20 02:59 Pulse 63 11/05/20 05:04 Resp 23 H 11/05/20 05:04 BP 160/94 11/05/20 02:59 Pulse Ox 91 11/05/20 05:04 11/04/20 11/05/20 11/05/20 22:59 06:59 14:59 Intake Total 460 / 1180 200 / 1380 Output Total 1100 / 1100 350 / 1450 Balance -640 / 80 -150 / -70 Weight last 48 hrs Weight 122.47 kg Physical Exam Const: COMMON NORMALS: no acute distress and patient oriented x3 GENERAL APPEARANCE: cooperative NUTRITIONAL APPEARANCE: obese morbidly obese HENMT: COMMON NORMALS: oropharynx normal Neck/C-Spine: COMMON NORMALS: no JVD Resp: COMMON NORMALS: normal respiratory effort and clear to auscultation bilaterally AUSCULTATION: clear to auscultation bilaterally Cardio: COMMON NORMALS: no JVD, regular rhythm, S1 normal heart sound present, S2 normal heart sound present and No murmurs present (Cardio) RHYTHM: regular rhythm HEART SOUNDS: S1 normal heart sound present and S2 normal heart sound present GI: COMMON NORMALS: Normal to inspection, nondistended, normoactive bowel sounds present, Soft to palpation and non-tender PALPATION: Yes Soft to palpation Extremity: COMMON NORMALS: no joint enlargement and no pedal edema Neuro: COMMON NORMALS: patient oriented x3 and moves all extremities Skin: COMMON NORMALS: no rashes or lesions noted GENERAL SKIN EXAM: no rashes or lesions noted Urinary Catheter Management^: Hope: Cath Placed During This Visit: yes Reason for Continuing Indwelling Catheter: Accurate Measurement of Urinary Output in Critically Ill Patients Urinary Catheter Date of Insertion: 11/02/20 Urinary Catheter Time of Insertion: 08:45 Data : 11/05/20 04:22 11/05/20 04:22 A&P Assessment and plan (1) Acute respiratory failure: Discussed with her acute respiratory condition worsens. She appears comfortable at rest currently. Continue high flow cannula. Discussed with her breathing through her nose rather than her mouth. Continue remdesivir, Decadron. Received tocilizumab. Add Mucinex, flutter valve. Provided a sputum culture sample. Follow-up. Hope Continue Advair, albuterol, incentive spirometry. No PE on CTA PE protocol Reassess inflammatory markers, D-dimer. Status: Acute (2) Diabetes: Low dose insulin sliding scale Status: Acute Attestations Medical Necessity Statement*: Continue admission for assessment of management of hypoxic respiratory failure secondary to COVID-19. 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
[2020-11-05] MEDS: pantoprazole DR 40 mg Tablet PO (09:36)
[2020-11-05] MEDS: lisinopril 5 mg Tablet PO (09:36)
[2020-11-05] MEDS: levoFLOXacin 750 mg Tablet PO (09:36)
[2020-11-05] MEDS: guaiFENesin 600 mg Tablet 1200 MG PO ×2 (09:37→18:34)
[2020-11-05] MEDS: atorvastatin 40 mg Tablet 20 MG PO (09:37)
[2020-11-05 11:46] LABS: Glucose Point of Care 144 mg/dL (70-110)
[2020-11-05 11:46] LABS: Glucose Point of Care 135 mg/dL (70-110)
[2020-11-05] MEDS: enoxaparin 40 mg/0.4 mL Syringe SUBCUT (11:53)
[2020-11-05 16:02] LABS: Glucose Point of Care 121 mg/dL (70-110)
[2020-11-05] MEDS: remdesivir 100 MG in sodium chloride 0.9% (100 ml) 100 ML IV (18:34)
--- NOTE | 2020-11-05 18:52 | PC.NURSE ---
Shift Note Frequent safety and comfort rounds continue. Orders and/or nursing care completed as indicated. Patient monitored for response to intervention and treatment(s). Education provided includes new medication mucinex. Patient and/or food service sales representatives verbalized understanding. Will continue to monitor.
[2020-11-05] MEDS: LORazepam 2 mg/mL INJ 1 mL 1 MG IVP (20:46)
[2020-11-05 20:47] LABS: Glucose Point of Care 135 mg/dL (70-110)
[2020-11-06] VITALS (38 sets, daily range): BP systolic 81–162; BP diastolic 52–102; PULSE 62–92; RESP 12–41; TEMP 36.8–37.9; O2SAT 84–98; BMI 52.0
[2020-11-06] MEDS: benzonatate 100 mg Capsule PO (02:52)
[2020-11-06] MEDS: LORazepam 2 mg/mL INJ 1 mL 1 MG IVP (03:55)
[2020-11-06 04:11] LABS: Basophils % 0.2 %; Eosinophils # 0.1 10^3/uL (0.0-0.8); Eosinophils % 0.5 %; Hematocrit 43.7 % (37.0-47.0); Hemoglobin 14.3 g/dL (11.5-15.3); Lymphocytes # 1.2 10^3/uL (0.8-4.8); Lymphocytes % 12.3 %; Mean Corpuscular HGB Conc 32.7 g/dL (30.0-36.0); Mean Corpuscular Hemoglobin 29.9 pg (28.0-34.0); Mean Corpuscular Volume 91.4 fL (81-99); Mean Platelet Volume 9.1 fL (7.4-10.4); Monocytes # 0.3 10^3/uL (0.2-0.9); Monocytes % 3.2 %; Neutrophils % 80.7 %; Nucleated Red Blood Cells % 0 %; Platelet Count 227 10^3/cmm (130-400); Red Blood Count 4.78 10^6/uL (4.1-5.3); Red Cell Distribution Width 11.7 % (12.1-15.1); White Blood Count 9.8 10^3/uL (4.0-10.0)
[2020-11-06 04:33] LABS: Alanine Aminotransferase 23 U/L (0-33); Albumin Level 3.4 g/dL (3.5-5.2); Alkaline Phosphatase 109 IU/L (35-105); Anion Gap 14.7 (5-19); Aspartate Amino Transferase 49 U/L (0-32); Blood Urea Nitrogen 16 mg/dL (6-20); C Reactive Protein 6.6 mg/L (0.0-4.9); Calcium 8.5 mg/dL (8.5-10.5); Carbon Dioxide 26 mmol/L (22-29); Chloride 99 mmol/L (98-107); Glomerular Filtration Rate 136.6 mL/min (90-130); Glucose 103 mg/dL (65-115); Osmolality Calculated 283 mOsm/kg (285-295); Potassium 3.7 mmol/L (3.5-5.1); Sodium 136 mmol/L (136-145); Total Bilirubin 0.5 mg/dL (0.15-1.2); Total Protein 6.4 g/dL (6.6-8.7)
[2020-11-06 04:38] LABS: D Dimer >= 20.00 ug/mIFEU (0-0.59)
[2020-11-06] MEDS: ALPRAZolam 0.5 mg Tablet PO (05:43)
[2020-11-06] MEDS: dexamethasone 4 mg/mL INJ 6 MG IVP (05:43)
--- NOTE | 2020-11-06 06:25 | PC.NURSE ---
Around 0300, patient was repositioned onto her side. Oxygen saturation dropped to 68 percent when doing this. Patient was repositioned back to her back in high-fitch's. Oxygen saturation came back up to 85 percent. RT placed patient on Bipap. PRN Ativan given for anxiety.
--- NOTE | 2020-11-06 06:29 | PC.NURSE ---
Patient's oxygen saturation maintaining [address] Suh notified and ordered to transfer patient to ICU.
[2020-11-06 06:54] LABS: Glucose Point of Care 110 mg/dL (70-110)
--- NOTE | 2020-11-06 07:22 | PC.NURSE ---
Shift Note Frequent safety and comfort rounds continue. Orders and/or nursing care completed as indicated. Patient monitored for response to intervention and treatment(s). Education provided includes oxygen safety. Patient and/or patient registration representative verbalized understanding. Will continue to monitor.
--- NOTE | 2020-11-06 08:58 | PM.PN ---
Subjective Subjective: Interval history: Breathing became more difficult overnight. Had to be started on BiPAP. She is not enjoying BiPAP very much. As well switch him back to high flow cannula. Discussed with her low saturations and currently need for continued BiPAP. She verbalized understanding, agrees to continue. Vitals/I&O/Wt Last Vital Signs Temp 98.2 F 11/06/20 00:00 Pulse 74 11/06/20 06:00 Resp 22 H 11/06/20 04:00 BP 124/77 11/06/20 04:00 Pulse Ox 92 11/06/20 04:48 11/05/20 11/06/20 11/06/20 22:59 06:59 14:59 Intake Total 580 / 1420 200 / 1620 Output Total 2049 / 2049 Balance -1470 / -630 200 / -430 Weight last 48 hrs Weight 122.47 kg Physical Exam Const: COMMON NORMALS: no acute distress and patient oriented x3 GENERAL APPEARANCE: cooperative NUTRITIONAL APPEARANCE: obese morbidly obese HENMT: COMMON NORMALS: oropharynx normal Neck/C-Spine: COMMON NORMALS: no JVD Resp: COMMON NORMALS: normal respiratory effort AUSCULTATION: diminished lung sounds Cardio: COMMON NORMALS: no JVD, regular rhythm, S1 normal heart sound present, S2 normal heart sound present and No murmurs present (Cardio) RHYTHM: regular rhythm HEART SOUNDS: S1 normal heart sound present and S2 normal heart sound present GI: COMMON NORMALS: Normal to inspection, nondistended, normoactive bowel sounds present, Soft to palpation and non-tender PALPATION: Yes Soft to palpation Extremity: COMMON NORMALS: no joint enlargement and no pedal edema Neuro: COMMON NORMALS: patient oriented x3 and moves all extremities Skin: COMMON NORMALS: no rashes or lesions noted GENERAL SKIN EXAM: no rashes or lesions noted Urinary Catheter Management^: Hope: Cath Placed During This Visit: yes Reason for Continuing Indwelling Catheter: Accurate Measurement of Urinary Output in Critically Ill Patients Urinary Catheter Date of Insertion: 11/02/20 Urinary Catheter Time of Insertion: 08:45 Data : 11/06/20 03:59 11/06/20 03:59 Micro: Microbiology 11/05/20 09:00 Gram Stain - Final Sputum - Expectorated Sputum A&P Assessment and plan (1) Acute respiratory failure: Worsening hypoxic respite failure overnight. Requiring BiPAP support. Saturations decreased compared to yesterday. Transfer to ICU for additional monitoring and consideration of escalation of care. She is agreeable. Continue remdesivir, Decadron. Received tocilizumab. Mucinex, flutter valve. Currently on prophylactic Lovenox dose. D-dimer is increased beyond 20 today. Will discuss with her consideration of escalation of anticoagulant dose to therapeutic. Provided a sputum culture sample. On Gram stain gram-negative rods, gram-positive cocci in pairs chains and clusters. Hope Continue Advair, albuterol, incentive spirometry. No PE on CTA PE protocol Reassess inflammatory markers, D-dimer. 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
--- NOTE | 2020-11-06 09:10 | USCV_ITS ---
Padma Bridget Age: 40 Gender: F : 1980 Exam Date: 11/06/2020 15:33 Ordering Phys: Lars Robbins MD Technologist: Chaya Dixon Exam Location: [facility] – [place] Indication: COVID ON VENT HISTORY: Covid on vent PROCEDURES: The venous duplex Doppler examination of both lower extremities was performed in the standard fashion. The following venous structures were evaluated: common femoral vein, profunda vein, proximal portion of the greater saphenous vein, superficial femoral vein, and the popliteal vein. In addition, the posterior tibial and peroneal trunk were evaluated. Serial compression, augmentation maneuvers, and spectral Doppler flow evaluation were performed. FINDINGS: Rt PTVs are occluded below knee through calf. No DVT otherwise. CONCLUSIONS Acute thrombosis right posterior tibial veins. Dr. Jannie Bowie DO (Electronically Signed) Final Date: 06 November 2020 16:10 S
[2020-11-06] MEDS: levoFLOXacin 750 mg Tablet PO (09:14)
[2020-11-06] MEDS: pantoprazole DR 40 mg Tablet PO (09:14)
[2020-11-06] MEDS: guaiFENesin 600 mg Tablet 1200 MG PO (09:15)
[2020-11-06] MEDS: atorvastatin 40 mg Tablet 20 MG PO (09:15)
[2020-11-06] MEDS: lisinopril 5 mg Tablet PO (09:15)
--- NOTE | 2020-11-06 09:35 | PC.NURSE ---
recieved from [facility] pt awake and restless some dyspnea noted placed in room 8 and started on bipap fio2 at 100% I 12 E of 8
--- NOTE | 2020-11-06 10:29 | PC.NURSE ---
oral care done and small sips of water given productive cough noted
[2020-11-06] MEDS: enoxaparin 40 mg/0.4 mL Syringe SUBCUT (11:59)
[2020-11-06 12:33] LABS: Glucose Point of Care 149 mg/dL (70-110)
[2020-11-06] MEDS: cisatracurium 100 MG in sodium chloride 0.9% 50 ML 14.7 MG IV (12:36)
[2020-11-06] MEDS: succinylcholine 20 mg/mL SDV 10mL IVP (12:52)
--- NOTE | 2020-11-06 13:37 | PC.NURSE ---
Dr darby here in room with pt for intubation and central line placement BAjith moran RN in room assisting with procedures at this time
[2020-11-06] MEDS: midazolam 1 mg/mL INJ 5 ML 5 MG (14:32)
[2020-11-06 15:34] LABS: ABG PCO2 55.1 mmHg (35-45); ABG PH Result 7.32 (7.35-7.45); Alveolar-Arterial Oxygen Gradi 56.7 mmHg (5-10); Arterial Blood Gas Hematocrit 47.6 % (37-47); Base Excess ABG 1.2 mmol/L (-2.0-2.0); Blood Gas Allen Test Pos; Blood Gas Operator Identificat GD; Blood Gas Sample Site Radial, right; Blood Gas Sample Type Arterial; Blood Gas Tidal Volume 0.37; Carboxyhemoglobin 0.4 %THgb (0.4-20.1); HCO3 ABG 28.6 mmol/L (22-26); HGB O2 Sat 98.1 % (95-100); Ionized Calcium Level - ABG 1.2 mmol/L (1.1-1.4); Oxygen Device VENT; Oxygen Saturation ABG 99.5; Potassium Level - ABG 4.2 mmol/L (3.5-5.0); Total Hemoglobin 15.5 g/dL (12-16)
[2020-11-06] MEDS: propofol 1,000 MG/100 ML INJ 58.79 MG IV ×2 (16:00→17:20)
--- NOTE | 2020-11-06 16:10 | PM.CONSULT ---
Providers/Reason For Consult Consulting Physician/Specialty*: Pulmonary critical care medicine Reason for Consult*: Acute hypoxic respiratory failure due to COVID-19 Attending Physician: Lars Robbins Primary Care Provider: Salma Craft History of Present Illness History of Present Illness Bridget Rouse is a 40 year old female with a past medical history of hypertension, diabetes, super morbid obesity with a BMI of 52 who presented to the hospital on November 02 with hypoxia, saturating 81% on room air. The patient subsequently required 5 L of oxygen when she was hospitalized. CT angiogram obtained on November 01 did not reveal any pulmonary embolism. The patient had diffuse bilateral groundglass opacities consistent with COVID-19 pneumonia. The patient was started on remdesivir and dexamethasone. After admission, her oxygen requirement continued to go up. By November 04, the patient was 100% FiO2 on high flow nasal cannula. The patient had also received tocilizumab. Overnight, her oxygenation had gotten worse requiring BiPAP. The patient was transferred to ICU this morning with oxygen saturation in the high 80s on 100% oxygen on BiPAP. Her D-dimer had also gone up. I had seen and examined the patient in the ICU. I had an extensive conversation with the patient's and her mom regarding intubation, possible risks of intubating now versus waiting. After a prolonged conversation, the family decided to go ahead and proceed with ventilatory support. The patient was subsequently intubated. Currently she is on volume control mechanical ventilation with low tidal volume ventilation. Post is to intubation blood gas showed a pH of 7.32, PCO2 of 55 and PO2 of 208 100% oxygen. Bilateral lower extremity Doppler revealed DVT in the right posterior tibial vein below knee through the calf. Sputum culture from November 05 grew upper respiratory tract nael. Her blood culture has been negative so far. Review of Systems Narrative: The patient complained of fatigue and shortness of breath prior to intubation. The review of system was limited because of her clinical condition. Meds/Allergies Home Medications and Allergies Home Medications Medication Instructions Recorded Confirmed Last Taken Type loratadine 10 mg tablet 10 mg PO DAILY 07/23/20 11/02/20 11/01/20 History atorvastatin 20 mg PO DAILY 11/02/20 11/02/20 11/01/20 History baclofen 10 mg PO TID PRN 11/02/20 11/02/20 Unknown History lisinopril 10 mg PO DAILY 11/02/20 11/02/20 11/02/20 History metformin 500 mg PO DAILY 11/02/20 11/02/20 11/01/20 History montelukast 10 mg PO DAILY 11/02/20 11/02/20 11/01/20 History Allergies Allergy/AdvReac Type Severity Reaction Status Date / Time cephalexin [From Keflex] Allergy red Verified 11/01/20 19:38 splotches Current Medications Current Medications Generic Name Dose Route Start Last Admin Trade Name Freq PRN Reason Stop Dose Admin Acetaminophen 500 mg 11/02/20 21:34 11/03/20 03:12 Acetaminophen 500 Mg Tablet PO 500 mg Q6H PRN Administration MILD PAIN OR INCREASE TEMP Albuterol Sulfate 2 puff 11/03/20 09:02 11/05/20 09:02 Albuterol 8 Gm Mdi INHALATION 2 puff Q4H.RESPIRATORY PRN Administration SHORTNESS OF BREATH Alprazolam 0.5 mg 11/02/20 11:06 11/06/20 05:43 Alprazolam 0.5 Mg Tablet PO 0.5 mg TID PRN Administration ANXIETY Atorvastatin Calcium 20 mg 11/03/20 09:00 11/06/20 09:15 Atorvastatin 40 Mg Tablet PO 20 mg DAILY FLORINDA Administration Benzonatate 100 mg 11/02/20 05:59 11/06/20 02:52 Benzonatate 100 Mg Capsule PO 100 mg TID PRN Administration COUGH Dexamethasone 6 mg 11/02/20 06:00 11/06/20 05:43 Dexamethasone 4 Mg/Ml Inj IVP 6 mg Q24H FLORINDA Administration Enoxaparin Sodium 40 mg 11/02/20 11:30 11/06/20 11:59 Enoxaparin 40 Mg/0.4 Ml Syringe SUBCUT 40 mg Q24H FLORINDA Administration Guaifenesin 1,200 mg 11/05/20 09:00 11/06/20 09:15 Guaifenesin 600 Mg Tablet PO 1,200 mg BID FLORINDA Administration Propofol 1,000 mg in 100 mls @ 0 mls/hr 11/06/20 12:15 11/06/20 16:00 Diprivan IV 80 mcg/kg/min .Q0M FLORINDA 58.79 mls/hr Administration Protocol Per Protocol Fentanyl 1,000 mcg/ Sodium 100 mls @ 0 mls/hr 11/06/20 12:15 11/06/20 12:36 Chloride IV 2 mcg/hr .Q0M FLORINDA 0.2 mls/hr Administration Protocol Per Protocol Cisatracurium Besylate 100 mg/ 100 mls @ 0 mls/hr 11/06/20 12:15 11/06/20 12:36 Sodium Chloride IV 2 mcg/kg/min .Q0M FLORINDA 14.7 mls/hr Administration Protocol Per Protocol Insulin Aspart 0 unit 11/02/20 08:00 11/06/20 12:06 Insulin Aspart 100 Unit/1 Ml SUBCUT Not Given WM&BEDTIME FLORINDA Protocol Levofloxacin 750 mg 11/02/20 09:00 11/06/20 09:14 Levofloxacin 750 Mg Tablet PO 750 mg DAILY FLORINDA Administration Protocol Lisinopril 5 mg 11/02/20 15:28 11/06/20 09:15 Lisinopril 5 Mg Tablet PO 5 mg DAILY FLORINDA Administration Lorazepam 1 mg 11/02/20 11:06 11/06/20 03:55 Lorazepam 2 Mg/Ml Inj 1 Ml IVP 1 mg Q8H PRN Administration ANXIETY Pantoprazole Sodium 40 mg 11/02/20 09:00 11/06/20 09:[address] 40 Mg Tablet PO 40 mg DAILY FLORINDA Administration Fluticasone/Salmeterol 1 puff 11/03/20 20:00 11/06/20 10:26 Fluticasone-Salmeterol 250-50 Diskus INHALATION Not Given BID.RESPIRATORY FLORINDA PFSH Acute PFSH: Medical History Diabetes GERD (gastroesophageal reflux disease) Hyperlipidemia Hypertension Major depressive disorder, recurrent, moderate Surgical History History of bilateral tubal ligation Hx of emergency section Family History Denies family history of Anesthesia complication Bleeding disorder Social History Smoking and tobacco status: never smoked Second hand smoke exposure: Yes Alcohol intake: current Alcohol intake frequency: holidays/special occasions only Alcohol type: wine Desire information about alcohol rehabilitation?: No Adopted: Yes Caregiver/support person: Yes Lives independently: Yes Household members: spouse and children Housing: Apartment Marital status: Number of children: 1 Number of grandchildren: 0 Highest education level completed: High School Graduate service: No Current occupational status: disabled Current occupational exposures/hazards: No Pets and animals: Yes Pets & animals: cat(s) and dog(s) Pets & animal details: 1 indoor cat and dog, 2 outdoor cats History of recent travel: No Leisure activites: reading Sexually active: Yes Current gender identity: Female Keysha/Restorationism: Sabianism Special keysha needs: No Agree to transfusion: Yes Financial difficulty paying for basics: Somewhat Hard Female Reproductive History: Date of last menstrual period: 04/29/19 Para: 1 Spontaneous abortions: No Vitals/I&O/Wt Last Vital Signs Temp 98.2 F 11/06/20 00:00 Pulse 81 11/06/20 13:00 Resp 20 H 11/06/20 13:35 BP 162/99 11/06/20 13:00 Pulse Ox 93 11/06/20 13:35 11/06/20 11/06/20 11/06/20 06:59 14:59 22:59 Intake Total 200 / 1620 Balance 200 / -430 Weight last 48 hrs Weight 275 lb Weight 270 lb Physical Exam Narrative: EXAM NARRATIVE: General: The patient is intubated and sedated Neck: No JVD Respiratory: Auscultation: Reduced breath sound bilaterally, crackles at bilateral lung bases Cardiovascular: Regular rate and rhythm, S1-S2 present, no murmur, no peripheral edema. Abdomen: Soft, distended from obesity, positive bowel sound Skin: No rash Neuro: The patient is sedated, prior to intubation the patient was awake alert and oriented, was able to move all extremities Urinary Catheter Management^: Hope: Cath Placed During This Visit: yes Reason for Continuing Indwelling Catheter: Accurate Measurement of Urinary Output in Critically Ill Patients Urinary Catheter Date of Insertion: 11/02/20 Urinary Catheter Time of Insertion: 08:45 Data Micro: Micro: Microbiology 11/05/20 09:00 Gram Stain - Final Sputum - Expector ated Sputum Sputum Culture - P reliminary Other Data: Attestation for Other Data: I personally reviewed and interpreted the following: Other data: I have reviewed her laboratory, microbiologic and radiologic data. Please see the HPI for detail. A&P Assessment and plan (1) Pneumonia due to severe acute respiratory syndrome coronavirus 2 (SARS-CoV-2): This is a 40-year-old lady with a history of hypertension, diabetes, super morbid obesity who presented to the hospital on November 01 with severe COVID-19. Since then, the patient's condition has progressively worsened. The patient was brought to the ICU on 100% FiO2 on BiPAP. She has received 5-day of remdesivir. She has also received tocilizumab. The CRP is currently very low. The patient is currently on dexamethasone. She is empirically covered with levofloxacin. Status: Acute (2) ARDS (adult respiratory distress syndrome): The patient required intubation and is currently mechanically ventilated with low tidal volume ventilation. She is on volume control of 375, PEEP of 12, PCO2 of 80%. The patient is very compliant without paralytics. The patient would not need to get prone positioned. I am going to start trickle tube feed at 15 mL an hour with Glucerna. Status: Acute (3) Diabetes: The patient carries a diagnosis of diabetes. I will obtain every 6 hour sliding scale coverage. Hemoglobin A1c level tomorrow morning. Status: Acute (4) DVT (deep venous thrombosis): Lower extremity Doppler revealed right below-knee posterior tibial vein thrombosis. This would explain the sudden increase in the D-dimer. Although the DVT is below knee, as the patient is intubated and immobile, the risk of progression of this DVT is significantly high. In addition, COVID-19 is associated with a hypercoagulable state. I am going to start the patient on full dose anticoagulation with unfractionated heparin. I am hoping she will be able to make a recovery. 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
--- NOTE | 2020-11-06 16:51 | XRR_ITS ---
PROCEDURE INFORMATION: Exam: XR Chest Exam date and time: 11/06/2020 4:51 PM Age: 40 years old Clinical indication: Device placement; Ett placement (vent status); Additional info: Post intubation TECHNIQUE: Imaging protocol: XR of the chest. Views: 1 view. COMPARISON: CR (CHEST, ) 11/01/2020 7:39 PM FINDINGS: Tubes, catheters and devices: Right central line terminates within the right atrium. Endotracheal tube terminates in proper position above the paradise. Enteric tube seen entering into the stomach and outside the field of view. Lungs: Patulous consolidations within both lungs. Pleural spaces: Unremarkable. No pleural effusion. No pneumothorax. Heart/Mediastinum: Unremarkable. No cardiomegaly. Bones/joints: Unremarkable. XR/XR chest 1V portable [id number] IMPRESSION: 1. Endotracheal tube in proper position above the paradise. 2. Right central line terminates within the right atrium.
--- NOTE | 2020-11-06 16:51 | PM.ACPR ---
Procedure/Consent Time out: Time Out Performed: Yes Consent: Consent for Procedure: Consent obtained from other (indicate) and Emergency procedure Procedure Narrative: Name of the procedure: Endotracheal intubation. Indication: Hypoxic respiratory failure. Medications: Etomidate 30 mg, succinylcholine 150 mg Procedure: The patient was positioned optimally. The patient was oxygenated with 100% oxygen with noninvasive ventilator. Name of the procedure: Endotracheal intubation. After appropriate medications were given, the glide scope blade was introduced and advanced till vocal cords were visualized. The endotracheal tube was advanced through the vocal cords under direct visualization. There was fogging of the ET tube, positive change in end-tidal CO2 monitor, bilateral chest rise, bilateral positive breath sound. The ET tube was secured at 21 cm at the lips. Complications: There was no immediate complications. Chest x-ray: Pending Acute Procedures Epistaxis Control: Time out performed: Yes
--- NOTE | 2020-11-06 16:55 | PM.ACPR ---
Procedure/Consent Time out: Time Out Performed: Yes Consent: Consent for Procedure: Emergency procedure Procedure Narrative: Name of the Procedure: Right internal Jugular Central venous catheter placement under ultrasound guidance. Indication: Intravenous access and possible need for vasopressor Anesthesiia: Lidocaine 1%, 5 ml Description of the procedure: The right IJ vein was identified with the Ultrasound from collapsibility and lack of pulsatility. The site was prepared using sterile technique. The skin and subcuteneous tissue was anesthetized using lidocaine. The introducer needle was advanced under US guidance till flash back was noted. Dark, non pulsatile blood noted. Using seldinger technique the CVC was put in.Blood return was noted in all ports. Catheter was secured with suture and covered with transparent dressing. Complications: None Chest x-ray: Pending Acute Procedures Epistaxis Control: Time out performed: Yes
[2020-11-06] MEDS: famotidine 20 mg/2 mL INJ IVP (17:05)
[2020-11-06] MEDS: heparin drip 25,000 UNIT/500 ML PREMIX 35 UNIT IV (17:06)
[2020-11-06] MEDS: heparin 5,000 unit/mL INJ 1 mL IV (17:08)
[2020-11-06 17:20] LABS: ABG PCO2 53.5 mmHg (35-45); ABG PH Result 7.33 (7.35-7.45); Alveolar-Arterial Oxygen Gradi 53.7 mmHg (5-10); Arterial Blood Gas Hematocrit 46.8 % (37-47); Base Excess ABG 0.7 mmol/L (-2.0-2.0); Blood Gas Allen Test Pos; Blood Gas Operator Identificat GD; Blood Gas Sample Site Radial, right; Blood Gas Sample Type Arterial; Carboxyhemoglobin 0.7 %THgb (0.4-20.1); HCO3 ABG 27.9 mmol/L (22-26); HGB O2 Sat 94.7 % (95-100); Ionized Calcium Level - ABG 1.2 mmol/L (1.1-1.4); Oxygen Device VENT; Oxygen Saturation ABG 96.3; PO2 ABG 92.5 mmHg (80.0-100.0); Potassium Level - ABG 4.2 mmol/L (3.5-5.0); Total Hemoglobin 15.3 g/dL (12-16)
[2020-11-06 17:21] LABS: Blood Gas Tidal Volume 0.37
[2020-11-06 18:28] LABS: Glucose Point of Care 168 mg/dL (70-110)
--- NOTE | 2020-11-06 18:50 | PC.NURSE ---
shift summary recieved from floor intubated this am with og tube placed . Fent and propofol gtt for sedation good urine output today .. oral care done
[2020-11-06] MEDS: propofol 1,000 MG/100 ML INJ 51.44 MG IV ×3 (19:25→23:16)
[2020-11-06 22:57] LABS: Partial Thromboplastin Time 223.6 SECONDS (23.9-36.7)
[2020-11-06 23:02] LABS: Glucose Point of Care 134 mg/dL (70-110)
[2020-11-07] VITALS (31 sets, daily range): BP systolic 86–124; BP diastolic 39–60; PULSE 54–82; RESP 22; TEMP 36.6–37.9; O2SAT 89–98; BMI 47.7
[2020-11-07] MEDS: sodium chloride 0.9% 250 ML 999 ML IV (01:17)
[2020-11-07] MEDS: propofol 1,000 MG/100 ML INJ 47.76 MG IV (01:52)
[2020-11-07] MEDS: propofol 1,000 MG/100 ML INJ 33.07 MG IV ×5 (04:50→18:36)
[2020-11-07] MEDS: famotidine 20 mg/2 mL INJ IVP ×2 (05:14→17:26)
[2020-11-07 05:23] LABS: Basophils # 0.1 10^3/uL (0.0-0.1); Basophils % 0.6 %; Eosinophils # 0.1 10^3/uL (0.0-0.8); Eosinophils % 0.5 %; Hematocrit 43.4 % (37.0-47.0); Lymphocytes # 2.1 10^3/uL (0.8-4.8); Lymphocytes % 9.5 %; Mean Corpuscular HGB Conc 32.3 g/dL (30.0-36.0); Mean Corpuscular Volume 93.1 fL (81-99); Mean Platelet Volume 9.4 fL (7.4-10.4); Monocytes # 1.1 10^3/uL (0.2-0.9); Monocytes % 5.3 %; Neutrophils # 17.37 10^3/uL (1.8-7.7); Neutrophils % 80.5 %; Nucleated Red Blood Cells % 0.1 %; Platelet Count 235 10^3/cmm (130-400); Red Blood Count 4.66 10^6/uL (4.1-5.3); Red Cell Distribution Width 12.2 % (12.1-15.1); White Blood Count 21.6 10^3/uL (4.0-10.0)
[2020-11-07] MEDS: dexamethasone 4 mg/mL INJ 6 MG IVP (05:27)
[2020-11-07 05:43] LABS: Partial Thromboplastin Time 27.3 SECONDS (23.9-36.7)
[2020-11-07 05:57] LABS: Alanine Aminotransferase 18 U/L (0-33); Albumin Level 3.3 g/dL (3.5-5.2); Alkaline Phosphatase 99 IU/L (35-105); Aspartate Amino Transferase 33 U/L (0-32); Blood Urea Nitrogen 26 mg/dL (6-20); Carbon Dioxide 23 mmol/L (22-29); Chloride 96 mmol/L (98-107); Globulin 2.8 g/dL (1.3-4.6); Glomerular Filtration Rate 24.7 mL/min (90-130); Glucose 152 mg/dL (65-115); Magnesium 2.1 mg/dL (1.7-2.3); Osmolality Calculated 284 mOsm/kg (285-295); Phosphorus 5.9 mg/dL (2.5-4.5); Sodium 133 mmol/L (136-145); Total Bilirubin 0.5 mg/dL (0.15-1.2); Total Protein 6.1 g/dL (6.6-8.7)
[2020-11-07 05:59] LABS: Anion Gap 18.2 (5-19); Potassium 4.2 mmol/L (3.5-5.1)
[2020-11-07 06:00] LABS: Estmated Average Glucose 134; Hemoglobin A1C 6.3 % (4.0-6.0)
[2020-11-07 06:34] LABS: D Dimer >= 20.00 ug/mIFEU (0-0.59)
[2020-11-07] MEDS: heparin 5,000 unit/mL INJ 1 mL IV (07:47)
[2020-11-07] MEDS: cefepime 2,000 MG in sodium chloride 0.9% (plus) 50 ML 100 MG IV (08:06)
[2020-11-07] MEDS: linezolid premix 600 MG/300 ML PREMIX 300 MG IV ×2 (08:07→23:57)
[2020-11-07] MEDS: atorvastatin 40 mg Tablet 20 MG PO (08:08)
[2020-11-07 08:36] LABS: Glucose Point of Care 184 mg/dL (70-110)
--- NOTE | 2020-11-07 08:36 | P.PN_ITS ---
Subjective Subjective: Interval history: Patient was seen and examined this morning she is intubated and sedated. Currently she is on 80% oxygen I was able to drop it down to 70%. The patient has sustained acute kidney injury, her white count has gone up significantly since yesterday. In addition, interestingly, her urine output had been minimal in the past 12 h. Currently she is on 20 mcg of Levophed. Her endotracheal tube aspirate revealed gram-positive cocci in clusters Medications: Reviewed: Yes Vitals/I&O/Wt Last Vital Signs Temp 97.8 F 11/07/20 04:00 Pulse 78 11/07/20 06:00 Resp 22 H 11/07/20 04:56 BP 99/53 11/06/20 16:00 Pulse Ox 90 11/07/20 04:56 11/06/20 11/07/20 11/07/20 22:59 06:59 14:59 Intake Total 380.410 / 917.406 5828.209 / 1381.619 355.88 / 355.88 Output Total 1999 / 1999 / 0 Balance -1619.590 / -1619.590 931.209 / -688.381 355.88 / 355.88 Weight last 48 hrs Weight 253 lb Weight 275 lb Physical Exam Narrative: EXAM NARRATIVE: General: The patient is intubated and sedated Neck: No JVD Respiratory: Auscultation: Reduced breath sound bilaterally, crackles at bilateral lung bases Cardiovascular: Regular rate and rhythm, S1-S2 present, no murmur, no peripheral edema. Abdomen: Soft, distended from obesity, positive bowel sound Skin: No rash Neuro: The patient is sedated, prior to intubation the patient was awake alert and oriented, was able to move all extremities Urinary Catheter Management^: Hope: Cath Placed During This Visit: yes Reason for Continuing Indwelling Catheter: Accurate Measurement of Urinary Output in Critically Ill Patients Urinary Catheter Date of Insertion: 11/02/20 Urinary Catheter Time of Insertion: 08:45 Data : 11/07/20 05:14 11/07/20 05:14 Micro: Microbiology 11/01/20 20:30 Blood Culture - Final Blood NO GROWTH AFTER 5 DAYS 11/01/20 20:15 Blood Culture - Final Blood NO GROWTH AFTER 5 DAYS 11/06/20 14:40 Gram Stain - Final Sputum - Endotracheal Tube Aspirate 11/05/20 09:00 Gram Stain - Final Sputum - Expectorated Sputum Sputum Culture - Preliminary Attestation for Other Data: I personally reviewed and interpreted the following: Other data: I have reviewed the patient's laboratory, microbiologic and radiologic data. Please see the HPI. A&P Assessment and plan (1) Septic shock: The patient has elevated white count, worsening pressor requirements and she has sustained kidney injury. She had minimal urine output overnight in 12-hour shift. I'm going to start her on linezolid and renally dosed cefepime. I'm going to obtain new blood cultures. Start her on vasopressin and titrate the Levophed to obtain a map of 65. Status: Acute (2) TEETEE (acute kidney injury): The etiology of the acute kidney injury is multifactorial. COVID-19 has been associated with acute kidney injury. In addition the patient was significantly hypoxic which likely contributed to the acute tubular necrosis. The patient receiving IV fluid with her sedative medications and vasopressors. In addition she is also going to receive free water flush. It is absolutely crucial to make sure the patient does not get volume overloaded. I will likely give her a dose of IV bumetanide tomorrow. Status: Acute (3) Pneumonia due to severe acute respiratory syndrome coronavirus 2 (SARS-CoV-2): The patient has a history of hypertension, diabetes, super morbid obesity who presented to the hospital on November 01 with severe COVID-19. Now she is intubated and undergoing low tidal volume ventilation. Her oxygen requirement has been coming down. Currently she is at 70%. She has received 5-day of remdesivir. She has also received tocilizumab. The CRP is currently very low. The patient is currently on dexamethasone. She is on linezolid and renally dosed cefepime. Status: Acute (4) ARDS (adult respiratory distress syndrome): The patient required intubation and is currently mechanically ventilated with low tidal volume ventilation. She is on volume control of 375, PEEP of 12, PCO2 of 70%. The patient is vent compliant without paralytics. The patient would not need to get prone positioned at this time. I am going to start trickle tube feed at 15 mL an hour with Glucerna with additional free water flush. Status: Acute (5) Diabetes: The patient carries a diagnosis of diabetes. I will continue with every 6 hour sliding scale coverage. The patient in fact has A1c level of 6.3. Status: Acute (6) DVT (deep venous thrombosis): Lower extremity Doppler revealed right below-knee posterior tibial vein thrombosis. This would explain the sudden increase in the D-dimer. Although the DVT is below knee, as the patient is intubated and immobile, the risk of progression of this DVT is significantly high. In addition, COVID-19 is associated with a hypercoagulable state. I am going to start the patient on full dose anticoagulation with unfractionated heparin. Status: Acute Attestations Medical Necessity Statement*: Will defer to the primary team Coding Level of Care Code Acute Printed Circuit Board Pcb Designer for [facility] Fwd Diagnoses Septic shock A41.9; R65.21 TEETEE (acute kidney injury) N17.9 Pneumonia due to severe acute respiratory syndrome coronavirus 2 (SARS-CoV-2) U07.1; J12.82 ARDS (adult respiratory distress syndrome) J80 Diabetes E11.9 DVT (deep venous thrombosis) I82.409 Time Spent (min) 33
--- NOTE | 2020-11-07 10:07 | PC.NURSE ---
morning rounding with Dr Car has had decrease in urine output overnight flushed well at this time and started weaning levophed gtt as tolerated and restarted heparin gtt after verify bolus to restart oral care done along with frequent saftey and comfort rounding
--- NOTE | 2020-11-07 13:23 | PC.NUTR ---
Nutrition assessment completed for LOS. Noted TF order for Glucerna 1.2 @ 15 ml/hr with 300 ml H2O flush q 6 hrs from yesterday not yet initiated. May depend on pressors, per Dr. Car. Recommend to initiate TF when appropriate. If well tolerated, and likely to require enteral nutrition for 3 days or more, recommend to increase by 10 ml/hr q 6 hrs to one of the following goals: If remaining on current rate of propofol: Goal of 40 ml/hr with 300 ml H2O flushes q 6 hrs (as propofol providing 873 kcal) If propofol decreased/stopped: Goal of 70 ml/hr with 150 ml H2O flushes q 6 hrs, to provide 2016 kcal, 101 g protein, and 1952 ml H2O. Also noted if renal function not improving, may benefit from Nepro formula instead.See full RD assessment for further details.
--- NOTE | 2020-11-07 16:14 | PC.NURSE ---
tube feeding on hold at this time with pressors in use after talking with Dr darby
[2020-11-07 16:58] LABS: Glucose Point of Care 173 mg/dL (70-110)
[2020-11-07] MEDS: heparin drip 25,000 UNIT/500 ML PREMIX 35 UNIT IV (17:26)
--- NOTE | 2020-11-07 18:28 | PM.PN ---
Subjective Subjective: Interval history: She had a rough night. Overnight her blood pressures had decreased. To increase pressor support. Currently she is resting with sedation. Levophed titrated down to 7 MCG per minute. Vitals/I&O/Wt Last Vital Signs Temp 98 F 11/07/20 13:00 Pulse 54 L 11/07/20 16:00 Resp 22 H 11/07/20 12:19 BP 119/56 11/07/20 16:00 Pulse Ox 95 11/07/20 16:00 11/07/20 11/07/20 11/07/20 06:59 14:59 22:59 Intake Total 1001.209 / 3063.359 8506.484 / 1166.484 0 / 1166.484 Output Total 70 / 2070 300 / 300 Balance 931.209 / -434.749 3248.484 / 1166.484 -300 / 866.484 Weight last 48 hrs Weight 114.759 kg Weight 124.738 kg Physical Exam Const: COMMON NORMALS: no acute distress NUTRITIONAL APPEARANCE: obese morbidly obese OTHER: She is intubated, sedated, currently comfortable. HENMT: COMMON NORMALS: oropharynx normal Neck/C-Spine: COMMON NORMALS: no JVD Resp: COMMON NORMALS: normal respiratory effort and clear to auscultation bilaterally AUSCULTATION: clear to auscultation bilaterally Cardio: COMMON NORMALS: no JVD, regular rhythm, S1 normal heart sound present, S2 normal heart sound present and No murmurs present (Cardio) RHYTHM: regular rhythm HEART SOUNDS: S1 normal heart sound present and S2 normal heart sound present GI: COMMON NORMALS: Normal to inspection, nondistended, normoactive bowel sounds present and Soft to palpation PALPATION: Yes Soft to palpation Extremity: COMMON NORMALS: no joint enlargement and no pedal edema Skin: COMMON NORMALS: no rashes or lesions noted GENERAL SKIN EXAM: no rashes or lesions noted Urinary Catheter Management^: Hope: Cath Placed During This Visit: yes Reason for Continuing Indwelling Catheter: Accurate Measurement of Urinary Output in Critically Ill Patients Urinary Catheter Date of Insertion: 11/02/20 Urinary Catheter Time of Insertion: 08:45 Data : 11/07/20 05:14 11/07/20 05:14 Micro: Microbiology 11/07/20 10:30 MRSA Culture - Final Nose 11/06/20 14:40 Gram Stain - Final Sputum - Endotracheal Tube Aspirate Sputum Culture - Preliminary 11/07/20 10:56 Blood Culture - Preliminary Blood SPECIMEN COLLECTED 11/07/20 11:01 Blood Culture - Preliminary Blood SPECIMEN COLLECTED 11/05/20 09:00 Gram Stain - Final Sputum - Expectorated Sputum Sputum Culture - Preliminary Strep species, beta hemolytic 11/01/20 20:30 Blood Culture - Final Blood NO GROWTH AFTER 5 DAYS 11/01/20 20:15 Blood Culture - Final Blood NO GROWTH AFTER 5 DAYS A&P Assessment and plan (1) Acute respiratory failure: FiO2 requirement with improvement, currently down to 60%. Continue with sedation, currently cooperating well with mechanical ventilation. Continue with Decadron. Completed course of remdesivir. Received tocilizumab. Mucinex, flutter valve. Currently on prophylactic Lovenox dose. D-dimer is increased beyond 20 today. Will discuss with her consideration of escalation of anticoagulant dose to therapeutic. Provided a sputum culture sample. On Gram stain gram-negative rods, gram-positive cocci in pairs chains and clusters. Hope Continue Advair, albuterol, incentive spirometry. No PE on CTA PE protocol Reassess inflammatory markers, D-dimer. Status: Acute (2) Septic shock: Blood pressure has been improving. Currently stabilized on 7 MCG per minute Levophed. Follow-up repeat cultures. Continues on empiric antibiotic coverage with cefepime, broadened with linezolid today. Status: Acute (3) TEETEE (acute kidney injury): Receiving gentle fluid challenge with free water flushes. Monitor urine output. Recheck renal function. Hold lisinopril. Maintain blood pressures. Status: Acute (4) DVT (deep venous thrombosis): Continue heparin drip. Status: Acute (5) Diabetes: Low dose insulin sliding scale. A1c 6.3. Status: Acute (6) ARDS (adult respiratory distress syndrome): Status: Acute Attestations Medical Necessity Statement*: Continue admission for treatment of hypoxic respiratory failure with severe COVID-19, septic shock, acute kidney injury, anticoagulation for DVT in a lady with morbid obesity. Coding Level of Care Code Acute Rip Tailer for [facility] Diagnoses Acute respiratory failure J96.00 Septic shock A41.9; R65.21 TEETEE (acute kidney injury) N17.9 DVT (deep venous thrombosis) I82.409 Diabetes E11.9 ARDS (adult respiratory distress syndrome) J80
[2020-11-07 21:08] LABS: Glucose Point of Care 215 mg/dL (70-110)
[2020-11-07] MEDS: propofol 1,000 MG/100 ML INJ 29.39 MG IV (21:54)
[2020-11-08] VITALS (30 sets, daily range): BP systolic 95–158; BP diastolic 46–74; PULSE 42–62; RESP 22–26; TEMP 36.1–37.2; O2SAT 88–97
[2020-11-08] MEDS: bumetanide 0.25 mg/mL SDV 10 mL 2 MG IV (00:07)
[2020-11-08 00:15] LABS: Glucose Point of Care 132 mg/dL (70-110)
[2020-11-08] MEDS: propofol 1,000 MG/100 ML INJ 29.39 MG IV ×6 (02:00→21:29)
[2020-11-08 02:33] LABS: Alanine Aminotransferase 15 U/L (0-33); Albumin Level 2.9 g/dL (3.5-5.2); Alkaline Phosphatase 71 IU/L (35-105); Aspartate Amino Transferase 36 U/L (0-32); Blood Urea Nitrogen 36 mg/dL (6-20); Calcium 7.3 mg/dL (8.5-10.5); Carbon Dioxide 21 mmol/L (22-29); Chloride 89 mmol/L (98-107); Globulin 2.4 g/dL (1.3-4.6); Glomerular Filtration Rate 14.5 mL/min (90-130); Glucose 127 mg/dL (65-115); Osmolality Calculated 272 mOsm/kg (285-295); Phosphorus 7.2 mg/dL (2.5-4.5); Sodium 126 mmol/L (136-145); Total Bilirubin 0.4 mg/dL (0.15-1.2); Total Protein 5.3 g/dL (6.6-8.7)
[2020-11-08 02:46] LABS: Partial Thromboplastin Time 229.4 SECONDS (23.9-36.7)
--- NOTE | 2020-11-08 03:00 | PC.NURSE ---
Addendum entered by Pk Duarte RN 11/08/20 06:01: I spoke with Dr. Goel, previous note had a spelling error. Original Note: Dr. Brady (Flavoring Machine Operator) was notified at 0247 of a critical lab value of PTT. It was 229. I received orders to stop the heparin drip and to redraw a PTT in six orders.
[2020-11-08] MEDS: famotidine 20 mg/2 mL INJ IVP ×2 (05:00→16:50)
[2020-11-08] MEDS: dexamethasone 4 mg/mL INJ 6 MG IVP (05:01)
[2020-11-08 07:48] LABS: Glucose Point of Care 135 mg/dL (70-110)
[2020-11-08] MEDS: cefepime 1,000 MG in sodium chloride 0.9% (plus) 50 ML 100 MG IV (07:52)
[2020-11-08] MEDS: atorvastatin 40 mg Tablet 20 MG PO (08:17)
[2020-11-08] MEDS: linezolid premix 600 MG/300 ML PREMIX 300 MG IV ×2 (08:18→21:22)
--- NOTE | 2020-11-08 08:32 | PC.NURSE ---
feeding pump not availabe to start trickle feed .. poultry hatchery supervisor aware at this time
--- NOTE | 2020-11-08 09:20 | PC.NURSE ---
ptt remains pending at this time lab called
--- NOTE | 2020-11-08 09:21 | XRR_ITS ---
PROCEDURE INFORMATION: Exam: XR Chest Exam date and time: 11/08/2020 9:21 AM Age: 40 years old Clinical indication: Shortness of breath; Additional info: Respiratory failure TECHNIQUE: Imaging protocol: XR of the chest. Views: 1 view. COMPARISON: CR (CHEST, ) 11/06/2020 5:16 PM FINDINGS: Tubes, catheters and devices: Tip of the ET tube projects 3.1 cm superior to the paradise. There is a G-tube with the distal fenestration positioned in the left upper quadrant in the expected location of the stomach. Lungs: Bilateral diffuse pulmonary opacities are similar to the prior study. Pleural spaces: Left costophrenic angle is obscured and a pleural effusion cannot be excluded. Heart/Mediastinum: Unremarkable. No cardiomegaly. Bones/joints: Unremarkable. XR/XR chest 1V portable [id number] IMPRESSION: Bilateral diffuse pulmonary opacities are similar to the prior study.
[2020-11-08 10:00] LABS: Partial Thromboplastin Time 26.2 SECONDS (23.9-36.7)
[2020-11-08] MEDS: heparin 5,000 unit/mL INJ 1 mL IV (10:24)
[2020-11-08] MEDS: heparin drip 25,000 UNIT/500 ML PREMIX 35 UNIT IV (10:25)
[2020-11-08 11:41] LABS: Basophils # 0.1 10^3/uL (0.0-0.1); Basophils % 0.3 %; Eosinophils # 0.2 10^3/uL (0.0-0.8); Eosinophils % 0.9 %; Hemoglobin 12.2 g/dL (11.5-15.3); Lymphocytes # 0.9 10^3/uL (0.8-4.8); Lymphocytes % 4.5 %; Mean Corpuscular Hemoglobin 29.8 pg (28.0-34.0); Mean Corpuscular Volume 90.5 fL (81-99); Mean Platelet Volume 9.8 fL (7.4-10.4); Monocytes # 0.7 10^3/uL (0.2-0.9); Monocytes % 3.4 %; Neutrophils # 17.68 10^3/uL (1.8-7.7); Neutrophils % 86.9 %; Nucleated Red Blood Cells % 0 %; Platelet Count 193 10^3/cmm (130-400); Red Blood Count 4.09 10^6/uL (4.1-5.3); Red Cell Distribution Width 12.1 % (12.1-15.1); White Blood Count 20.4 10^3/uL (4.0-10.0)
[2020-11-08 12:05] LABS: Alanine Aminotransferase 15 U/L (0-33); Albumin Level 3.1 g/dL (3.5-5.2); Alkaline Phosphatase 79 IU/L (35-105); Anion Gap 24.1 (5-19); Aspartate Amino Transferase 37 U/L (0-32); Blood Urea Nitrogen 41 mg/dL (6-20); Calcium 7.4 mg/dL (8.5-10.5); Carbon Dioxide 19 mmol/L (22-29); Chloride 88 mmol/L (98-107); Globulin 2.2 g/dL (1.3-4.6); Glomerular Filtration Rate 13.2 mL/min (90-130); Glucose 146 mg/dL (65-115); Magnesium 2.2 mg/dL (1.7-2.3); Osmolality Calculated 277 mOsm/kg (285-295); Potassium 4.1 mmol/L (3.5-5.1); Sodium 127 mmol/L (136-145); Total Bilirubin 0.5 mg/dL (0.15-1.2); Total Protein 5.3 g/dL (6.6-8.7)
[2020-11-08 12:23] LABS: Glucose Point of Care 189 mg/dL (70-110)
[2020-11-08 12:26] LABS: Phosphorus 8.2 mg/dL (2.5-4.5)
--- NOTE | 2020-11-08 13:28 | P.PN_ITS ---
Subjective Subjective: Interval history: The patient was seen and examined. She is intubated and sedated but able to follow simple commands and answer questions. Her oxygen requirement has come down to 45%. Unfortunately, the patient has suffered from ATN in her creatinine and BUN is going up. She has developed oliguric renal failure. She has mild hyponatremia and hyperphosphatemia. Bedside ultrasound revealed very dilated IVC. Medications: Reviewed: Yes Vitals/I&O/Wt Last Vital Signs Temp 97 F L 11/08/20 13:00 Pulse 49 L 11/08/20 13:00 Resp 22 H 11/08/20 13:15 BP 103/52 11/08/20 13:00 Pulse Ox 95 11/08/20 13:15 11/07/20 11/08/20 11/08/20 22:59 06:59 14:59 Intake Total 202.93 / 1369.414 735.566 / 2104.980 1249.171 / 1249.171 Output Total 300 / 300 475 / 775 Balance -97.07 / 1069.414 260.566 / 0987.737 9648.171 / 1249.171 Weight last 48 hrs Weight 256 lb 9.6 oz Weight 253 lb Physical Exam Narrative: EXAM NARRATIVE: General: The patient is intubated and sedated Neck: No JVD Respiratory: Auscultation: Reduced breath sound bilaterally, crackles at bilateral lung bases Cardiovascular: Regular rate and rhythm, S1-S2 present, no murmur, no peripheral edema. Abdomen: Soft, distended from obesity, positive bowel sound Skin: No rash Neuro: Patient is able to follow simple commands, moves all extremities spontaneously Urinary Catheter Management^: Hope: Cath Placed During This Visit: yes Reason for Continuing Indwelling Catheter: Accurate Measurement of Urinary Output in Critically Ill Patients Urinary Catheter Date of Insertion: 11/02/20 Urinary Catheter Time of Insertion: 08:45 Data : 11/08/20 10:32 11/08/20 10:32 Micro: Microbiology 11/07/20 10:56 Blood Culture - Preliminary Blood NEGATIVE TO DATE 11/07/20 11:01 Blood Culture - Preliminary Blood NEGATIVE TO DATE 11/07/20 10:30 MRSA Culture - Final Nose 11/06/20 14:40 Gram Stain - Final Sputum - Endotracheal Tube Aspirate Sputum Culture - Preliminary 11/05/20 09:00 Gram Stain - Final Sputum - Expectorated Sputum Sputum Culture - Preliminary Strep species, beta hemolytic Attestation for Other Data: I personally reviewed and interpreted the following: Other data: I have reviewed her laboratory, microbiologic and radiologic data A&P Assessment and plan (1) Septic shock: Her pressor requirement has come down. She is on linezolid and renally dosed cefepime. Her blood cultures have been negative from November 07. Her map goal of 65. Status: Acute (2) TEETEE (acute kidney injury): The etiology of the acute kidney injury is multifactorial. COVID-19 has been associated with acute kidney injury. In addition the patient was significantly hypoxic which likely contributed to the acute tubular necrosis. The patient has ATN. She has developed oliguric renal failure. She has hyper phosphatemia and worsening metabolic acidosis. I am going to start her on a concentrated bicarb drip. I will start her on Bumex 2 mg twice a day IV with the hope that we will be able to prevent fluid overload. Status: Acute (3) Pneumonia due to severe acute respiratory syndrome coronavirus 2 (SARS-CoV-2): The patient has a history of hypertension, diabetes, super morbid obesity who presented to the hospital on November 01 with severe COVID-19. Now she is intubated and undergoing low tidal volume ventilation. Her oxygen req uirement has been coming down. Currently the patient is on 45% oxygen. She has received 5-day of remdesivir. She has also received tocilizumab. The CRP is currently very low. The patient is currently on dexamethasone. She is on linezolid and renally dosed cefepime. Status: Acute (4) ARDS (adult respiratory distress syndrome): We will continue to wean the ventilator settings. Hopefully the patient will be ready for extubation in the next 24 to 48 hours. We have to make sure the patient does not get volume overloaded. Her tube feed was switched to Nepro with free water flush 200 cc every 6 hours. Status: Acute (5) Diabetes: The patient carries a diagnosis of diabetes. I will continue with every 6 hour sliding scale coverage. The patient in fact has A1c level of 6.3. Status: Acute (6) DVT (deep venous thrombosis): Lower extremity Doppler revealed right below-knee posterior tibial vein thrombosis. This would explain the sudden increase in the D-dimer. Although the DVT is below knee, as the patient is intubated and immobile, the risk of progression of this DVT is significantly high. In addition, COVID-19 is associated with a hypercoagulable state. Patient to remain anticoagulated with unfractionated heparin. Status: Acute Attestations Medical Necessity Statement*: Will defer to the primary team Coding Level of Care Code Acute Salesperson Furniture for [facility] Fwd Diagnoses Septic shock A41.9; R65.21 TEETEE (acute kidney injury) N17.9 Pneumonia due to severe acute respiratory syndrome coronavirus 2 (SARS-CoV-2) U07.1; J12.82 ARDS (adult respiratory distress syndrome) J80 Diabetes E11.9 DVT (deep venous thrombosis) I82.409 Time Spent (min) 33
[2020-11-08] MEDS: bumetanide 0.25 mg/mL SDV 4 mL 2 MG IV (14:52)
--- NOTE | 2020-11-08 15:35 | PC.NURSE ---
weaned down off levophed gtt but with phos increasing gave bumex and started bicarb gtt with decrease in blood pressure , restarted at low dose maintain . frequent oral care and comfort rounds for saftey bolus feed of tube feeding given with flush, noted some decrease in heart rate with fluid. heparin restarted per protocol this am after bolus responds to verbal commands at this time
[2020-11-08 16:41] LABS: Partial Thromboplastin Time 202.4 SECONDS (23.9-36.7)
[2020-11-08 17:50] LABS: Glucose Point of Care 131 mg/dL (70-110)
--- NOTE | 2020-11-08 18:21 | PC.NURSE ---
Shift Note Frequent safety and comfort rounds continue. Orders and/or nursing care completed as indicated. Patient monitored for response to intervention and treatment(s). Education provided includes[renal issures ]. Patient and/or liability claims representative [ResponseToTeaching]. Will continue to monitor. more awake and responds to commands
[2020-11-08] MEDS: heparin drip 25,000 UNIT/500 ML PREMIX 26 UNIT IV (21:29)
--- NOTE | 2020-11-08 21:54 | P.PN_ITS ---
Subjective Subjective: Interval history: Intubated, sedated. Vitals/I&O/Wt Last Vital Signs Temp 97 F L 11/08/20 13:00 Pulse 42 L 11/08/20 18:00 Resp 22 H 11/08/20 21:00 BP 108/58 11/08/20 18:00 Pulse Ox 94 11/08/20 21:00 11/08/20 11/08/20 11/08/20 06:59 14:59 22:59 Intake Total 735.566 / 2104.980 1280.984 / 0080.750 0195.333 / 2318.317 Output Total 475 / 775 850 / 850 Balance 260.566 / 8517.389 3353.984 / 1280.984 187.333 / 1468.317 Weight last 48 hrs Weight 116.392 kg Weight 114.759 kg Physical Exam Const: COMMON NORMALS: no acute distress NUTRITIONAL APPEARANCE: obese morbidly obese OTHER: Sedated, MV, currently comfortable. HENMT: COMMON NORMALS: oropharynx normal Neck/C-Spine: COMMON NORMALS: no JVD Resp: COMMON NORMALS: normal respiratory effort and clear to auscultation bilaterally AUSCULTATION: clear to auscultation bilaterally Cardio: COMMON NORMALS: no JVD, regular rhythm, S1 normal heart sound present, S2 normal heart sound present and No murmurs present (Cardio) RHYTHM: regular rhythm HEART SOUNDS: S1 normal heart sound present and S2 normal heart sound present GI: COMMON NORMALS: Normal to inspection, nondistended, normoactive bowel sounds present and Soft to palpation PALPATION: Yes Soft to palpation Extremity: COMMON NORMALS: no joint enlargement and no pedal edema Skin: COMMON NORMALS: no rashes or lesions noted GENERAL SKIN EXAM: no rashes or lesions noted Urinary Catheter Management^: Hope: Cath Placed During This Visit: yes Reason for Continuing Indwelling Catheter: Accurate Measurement of Urinary Output in Critically Ill Patients Urinary Catheter Date of Insertion: 11/02/20 Urinary Catheter Time of Insertion: 08:45 Data : 11/08/20 10:32 11/08/20 10:32 Micro: Microbiology 11/05/20 09:00 Gram Stain - Final Sputum - Expectorated Sputum Sputum Culture - Final Streptococcus Group C 11/06/20 14:40 Gram Stain - Final Sputum - Endotracheal Tube Aspirate Sputum Culture - Final 11/07/20 10:56 Blood Culture - Preliminary Blood NEGATIVE TO DATE 11/07/20 11:01 Blood Culture - Preliminary Blood NEGATIVE TO DATE 11/07/20 10:30 MRSA Culture - Final Nose A&P Assessment and plan (1) Acute respiratory failure: FiO2 requirement with improvement, currently down to 60%. Continue with Decadron. Completed course of remdesivir. Received tocilizumab. Continues empirically on cefepime. Linezolid. Sputum culture with group C strep. MRSA PCR negative. Anticoagulation due to DVT. Risk of PE. Status: Acute (2) Septic shock: Pressor requirement slowly coming down. Continues on empiric antibiotic coverage with cefepime, linezolid. Status: Acute (3) TEETEE (acute kidney injury): Oliguric TEETEE. Creatinine appears to be plateauing. Currently perhaps an 8. Diuretic challenge. Hold lisinopril. Maintain blood pressures. Status: Acute (4) DVT (deep venous thrombosis): Continue heparin drip. Status: Acute (5) Diabetes: Low dose insulin sliding scale. A1c 6.3. Status: Acute (6) ARDS (adult respiratory distress syndrome): Status: Acute Attestations Medical Necessity Statement*: Continue admission for management of septic shock, hypoxic respiratory failure with severe COVID-19, TEETEE. Coding Level of Care Code Acute Senior It Architect for [facility] Diagnoses Acute respiratory failure J96.00 Septic shock A41.9; R65.21 TEETEE (acute kidney injury) N17.9 DVT (deep venous thrombosis) I82.409 Diabetes E11.9 ARDS (adult respiratory distress syndrome) J80
[2020-11-08 21:56] LABS: Glucose Point of Care 120 mg/dL (70-110)
[2020-11-09] VITALS (20 sets, daily range): BP systolic 108–157; BP diastolic 52–82; PULSE 42–97; RESP 12–24; TEMP 36.4–36.7; O2SAT 89–94; BMI 49.3
[2020-11-09 01:05] LABS: Partial Thromboplastin Time 64.4 SECONDS (23.9-36.7)
[2020-11-09] MEDS: propofol 1,000 MG/100 ML INJ 29.39 MG IV ×3 (01:26→11:07)
[2020-11-09] MEDS: bumetanide 0.25 mg/mL SDV 4 mL 2 MG IV ×2 (02:34→14:27)
[2020-11-09 03:49] LABS: Basophils # 0.1 10^3/uL (0.0-0.1); Basophils % 0.4 %; Eosinophils # 0.3 10^3/uL (0.0-0.8); Eosinophils % 1.7 %; Hematocrit 32.5 % (37.0-47.0); Hemoglobin 11.1 g/dL (11.5-15.3); Lymphocytes # 1.3 10^3/uL (0.8-4.8); Lymphocytes % 7.7 %; Mean Corpuscular HGB Conc 34.2 g/dL (30.0-36.0); Mean Corpuscular Hemoglobin 29.7 pg (28.0-34.0); Mean Corpuscular Volume 86.9 fL (81-99); Mean Platelet Volume 9.9 fL (7.4-10.4); Monocytes # 0.9 10^3/uL (0.2-0.9); Monocytes % 5.6 %; Neutrophils # 13.19 10^3/uL (1.8-7.7); Neutrophils % 80.5 %; Nucleated Red Blood Cells % 0 %; Platelet Count 190 10^3/cmm (130-400); Red Blood Count 3.74 10^6/uL (4.1-5.3); Red Cell Distribution Width 11.9 % (12.1-15.1); White Blood Count 16.4 10^3/uL (4.0-10.0)
[2020-11-09 04:13] LABS: Alanine Aminotransferase 14 U/L (0-33); Albumin Level 2.8 g/dL (3.5-5.2); Alkaline Phosphatase 66 IU/L (35-105); Anion Gap 22.8 (5-19); Aspartate Amino Transferase 33 U/L (0-32); Blood Urea Nitrogen 58 mg/dL (6-20); Calcium 7.6 mg/dL (8.5-10.5); Carbon Dioxide 21 mmol/L (22-29); Chloride 91 mmol/L (98-107); Globulin 2.3 g/dL (1.3-4.6); Glomerular Filtration Rate 9.8 mL/min (90-130); Glucose 113 mg/dL (65-115); Magnesium 2.1 mg/dL (1.7-2.3); Osmolality Calculated 289 mOsm/kg (285-295); Potassium 3.8 mmol/L (3.5-5.1); Sodium 131 mmol/L (136-145); Total Bilirubin 0.4 mg/dL (0.15-1.2); Total Protein 5.1 g/dL (6.6-8.7)
[2020-11-09 04:17] LABS: Phosphorus 8.5 mg/dL (2.5-4.5)
[2020-11-09] MEDS: famotidine 20 mg/2 mL INJ IVP ×2 (05:35→17:55)
[2020-11-09] MEDS: dexamethasone 4 mg/mL INJ 6 MG IVP (05:35)
[2020-11-09 08:44] LABS: Glucose Point of Care 132 mg/dL (70-110)
[2020-11-09] MEDS: cefepime 1,000 MG in sodium chloride 0.9% (plus) 100 ML 200 MG IV (08:49)
[2020-11-09] MEDS: linezolid premix 600 MG/300 ML PREMIX 300 MG IV ×2 (08:49→21:04)
[2020-11-09] MEDS: atorvastatin 40 mg Tablet 20 MG PO (08:50)
--- NOTE | 2020-11-09 09:47 | PC.NURSE ---
Addendum entered by JUNI Gagnon 11/09/20 12:25: Fentanyl running at 7.5ml/hr. This nurse titrated to 5ml/hr at approximately 0947. Previous note had error in rate. Original Note: Fentanyl running at 75ml/hr. This nurse titrated to 50ml/hr at approximately 0947.
--- NOTE | 2020-11-09 09:59 | PC.CHAP ---
Pastoral Care Encounter/Spiritual Assessment Type of Contact [] Declined network control operators supervisor visit [] Patient/Family/Request visit [] Outpatient visit [] Follow-up visit [] Physician referral [] Code/Alert [x] Routine visit [] Staff referral [] Actively dying [] Patient sleeping [] Family support [] [] Out of room [] Palliative care [] [] Receiving care in room [] Pre-surgical visit [] Trauma [] Long length of stay [x] ICU visit [] Other: Relational/Emotional Strength [] Patient feels connected with others/family/visitors/staff [] Distress [] Loneliness/isolation [] Abandonment Spirituality of Patient [] Person of Keysha [] Attends Lutheran of their Keysha [] Believes in Prayer [] Reads Bible or Hoahaoism materials [] There are Spiritual issues to be addressed Olive Pitter Interventions [x] Prayer [] Active listening [] Non-anxious presence [] Spiritual/emotional support [] Crisis/trauma care [] Spiritual counseling [] Bereavement support [] Provided bereavement packet [] Provided Bible/devotional materials [] Provided toy/stuffed animal, coloring book to patient or family member [] Provided Communion [] Anointing/[place] [] Salvation [x] Completed spiritual assessment [] Other: Impact on Illness or Injury [] Angry [] Fearful [] Anxious [] Often cries [] Exhaustion [] Unable to work [] Unable to attend caodaism [] Unable to walk/stand [] Unable to read [] Unable to drive [] Unable to eat/drink [] Unable to sleep [] Unable to be with family [] Patient intubated [] Other: Summary Time spent with patient
[2020-11-09 11:55] LABS: Glucose Point of Care 154 mg/dL (70-110)
--- NOTE | 2020-11-09 12:07 | PM.PN ---
Subjective Subjective: Interval history: -extuabted to 40L 60% fio2 - appears comfortable; offered no complaints -labs and imaging reviewed -Mother informed that pt has some developmental issues and requires special needs Medications: Reviewed: Yes Vitals/I&O/Wt Last Vital Signs Temp 97.6 F 11/09/20 08:00 Pulse 57 L 11/09/20 08:00 Resp 23 H 11/09/20 10:55 BP 135/66 11/09/20 08:00 Pulse Ox 92 11/09/20 10:55 11/08/20 11/09/20 11/09/20 22:59 06:59 14:59 Intake Total 1337.333 / 2618.317 405.553 / 3023.870 843.936 / 843.936 Output Total 850 / 850 1195 / 2045 Balance 487.333 / 1768.317 -789.447 / 978.870 843.936 / 843.936 Weight last 48 hrs Weight 261 lb 1.6 oz Weight 256 lb 9.6 oz Physical Exam Narrative: EXAM NARRATIVE: General: lying in bed, extubated to HFNC. HEENT:NCAT, PERRLA, EOMI Neck: Supple Lungs: Reduced breath sounds bilaterally Heart: s1/s2, RRR Abd: soft, NT, ND, BS + Normoactive Extremities: No edema PSYCHOLOGICAL OPERATIONS: Drowsy due to sedation and limited PSYCHOLOGICAL OPERATIONS exam possible, SKIN: no rash Urinary Catheter Management^: Hope: Cath Placed During This Visit: yes Reason for Continuing Indwelling Catheter: Accurate Measurement of Urinary Output in Critically Ill Patients Urinary Catheter Date of Insertion: 11/02/20 Urinary Catheter Time of Insertion: 08:45 Data : 11/09/20 03:35 11/09/20 03:35 Other Labs: Laboratory Results WBC 16.4 10^3/uL (4.0-10.0) H 11/09/20 03:35 RBC 3.74 10^6/uL (4.1-5.3) L 11/09/20 03:35 Hgb 11.1 g/dL (11.5-15.3) L 11/09/20 03:35 Hct 32.5 % (37.0-47.0) L 11/09/20 03:35 MCV 86.9 fL (81-99) 11/09/20 03:35 MCH 29.7 pg (28.0-34.0) 11/09/20 03:35 MCHC 34.2 g/dL (30.0-36.0) 11/09/20 03:35 RDW 11.9 % (12.1-15.1) L 11/09/20 03:35 Plt Count 190 10^3/cmm (130-400) 11/09/20 03:35 MPV 9.9 fL (7.4-10.4) 11/09/20 03:35 Neut % (Auto) 80.5 % 11/09/20 03:35 Lymph % (Auto) 7.7 % 11/09/20 03:35 [place] % (Auto) 5.6 % 11/09/20 03:35 Eos % (Auto) 1.7 % 11/09/20 03:35 Baso % (Auto) 0.4 % 11/09/20 03:35 Neut # (Auto) 13.19 10^3/uL (1.8-7.7) H 11/09/20 03:35 Lymph # (Auto) 1.3 10^3/uL (0.8-4.8) 11/09/20 03:35 [place] # (Auto) 0.9 10^3/uL (0.2-0.9) 11/09/20 03:35 Eos # (Auto) 0.3 10^3/uL (0.0-0.8) 11/09/20 03:35 Baso # (Auto) 0.1 10^3/uL (0.0-0.1) 11/09/20 03:35 Nucleated RBC % (auto) 0 % 11/09/20 03:35 Total Counted 100 (0-100) 11/03/20 04:03 Atypical Lymphs % 0.0 % (0-5) 11/03/20 04:03 Absolute Neutrophils 8.6 10^3/cmm (1.4-6.5) H 11/03/20 04:03 Segmented Neutrophils 73 % 11/03/20 04:03 Abs Segm Neuts (Man) 7.3 10/cmm (1.6-7.1) H 11/03/20 04:03 Band Neutrophils 13.0 % 11/03/20 04:03 Abs Band Neuts (Man) 1.3 10^3/cmm (0.0-1.2) H 11/03/20 04:03 Absolute Lymphocytes 0.8 10^3/cmm (1.2-3.4) L 11/03/20 04:03 Lymphocytes (Manual) 8 % 11/03/20 04:03 Monocytes (Manual) 6.0 % 11/03/20 04:03 Absolute Monocytes 0.6 10^3/cmm (0.1-0.6) 11/03/20 04:03 Eosinophils (Manual) 0 % 11/03/20 04:03 Absolute Eosinophils 0.0 10^3/cmm (0.0-0.7) 11/03/20 04:03 Basophils (Manual) 0.0 % 11/03/20 04:03 Absolute Basophils 0.0 10^3/cmm (0.0-0.2) 11/03/20 04:03 Nucleated RBCs # 0.0 /100WBC 11/09/20 03:35 Platelet Estimate Normal (Normal) 11/03/20 04:03 PT 12.00 SECONDS (12.1-14.9) L 11/01/20 20:30 INR 0.86 (0.8-1.2) 11/01/20 20:30 APTT 40.7 SECONDS (23.9-36.7) H 11/09/20 15:03 D-Dimer >= 20.00 ug/mIFEU (0-0.59) H 11/07/20 05:14 Specimen Type Arterial 11/06/20 17:00 Sample Site Radial, right 11/06/20 17:00 ABG pH 7.33 (7.35-7.45) L 11/06/20 17:00 ABG pCO2 53.5 mmHg (35-45) H 11/06/20 17:00 ABG pO2 92.5 mmHg (80.0-100.0) 11/06/20 17:00 ABG HCO3 27.9 mmol/L (22-26) H 11/06/20 17:00 ABG O2 Saturation 96.3 11/06/20 17:00 ABG Base Excess 0.7 mmol/L (-2.0-2.0) 11/06/20 17:00 Sammy Test Pos 11/06/20 17:00 A-a O2 Gradient 53.7 mmHg (5-10) H 11/06/20 17:00 Hematocrit 46.8 % (37-47) 11/06/20 17:00 Hgb O2 Saturation 94.7 % (95-100) L 11/06/20 17:00 Carboxyhemoglobin 0.7 %THgb (0.4-20.1) 11/06/20 17:00 Methemoglobin 1.0 % (0.4-1.5) 11/06/20 17:00 Total Hemoglobin 15.3 g/dL (12-16) 11/06/20 17:00 Sodium 137.0 mmol/L (131-143) 11/06/20 17:00 Potassium 4.2 mmol/L (3.5-5.0) 11/06/20 17:00 Glucose 179.0 mg/dL (70-115) H 11/06/20 17:00 Ionized Calcium 1.2 mmol/L (1.1-1.4) 11/06/20 17:00 O2 Delivery Device Vent 11/06/20 17:00 O2 Liters/Min 12.0 % 11/02/20 10:49 FiO2 80.0 % 11/06/20 17:00 Tidal Volume 0.37 11/06/20 17:00 PEEP 12.0 cmH20 11/06/20 17:00 Director Of Software Engineering ID [id number] 11/06/20 17:00 Blood Gas Notified Time 1100 11/02/20 10:49 Sodium 131 mmol/L (136-145) L 11/09/20 03:35 Potassium 3.8 mmol/L (3.5-5.1) 11/09/20 03:35 Chloride 91 mmol/L (98-107) L 11/09/20 03:35 Carbon Dioxide 21 mmol/L (22-29) L 11/09/20 03:35 Anion Gap 22.8 (5-19) H 11/09/20 03:35 BUN 58 mg/dL (6-20) H 11/09/20 03:35 Creatinine 4.9 mg/dL (0.5-0.9) H 11/09/20 03:35 GFR Calculation 9.8 mL/min (90-130) L 11/09/20 03:35 Glucose 113 mg/dL (65-115) 11/09/20 03:35 POC Glucose 110 mg/dL (70-110) 11/09/20 20:46 Estimat Average Glucose 134 11/07/20 05:14 Hemoglobin A1c 6.3 % (4.0-6.0) H 11/07/20 05:14 Calculated Osmolality 289 mOsm/kg (285-295) 11/09/20 03:35 Lactic Acid 0.8 mmol/L (0.5-2.2) 11/01/20 20:30 Calcium 7.6 mg/dL (8.5-10.5) L 11/09/20 03:35 Phosphorus 8.5 mg/dL (2.5-4.5) H* 11/09/20 03:35 Magnesium 2.1 mg/dL (1.7-2.3) 11/09/20 03:35 Ferritin 1083 ng/mL (15-150) H 11/03/20 04:03 Total Bilirubin 0.4 mg/dL (0.15-1.2) 11/09/20 03:35 AST 33 U/L (0-32) H 11/09/20 03:35 ALT 14 U/L (0-33) 11/09/20 03:35 Alkaline Phosphatase 66 IU/L (35-105) 11/09/20 03:35 Lactate Dehydrogenase 591 U/L (135-214) H 11/03/20 04:03 Creatine Kinase 1062 U/L (26-192) H* 11/09/20 03:35 Troponin T Gen 5 ng/L 6 ng/L (0-10) 11/01/20 20:30 C-Reactive Protein 6.6 mg/L (0.0-4.9) H 11/06/20 03:59 NT-Pro-B Natriuret Pep 109 pg/mL (0-125) 11/01/20 20:30 Total Protein 5.1 g/dL (6.6-8.7) L 11/09/20 03:35 Albumin 2.8 g/dL (3.5-5.2) L 11/09/20 03:35 Globulin 2.3 g/dL (1.3-4.6) 11/09/20 03:35 Procalcitonin 0.07 ng/mL (0-0.5) 11/03/20 04:03 Urine Color Yellow (Yellow) 11/01/20 22:18 Urine Appearance Clear (CLEAR) 11/01/20 22:18 Urine pH 6.5 (5-7) 11/01/20 22:18 Ur Specific [place] 1.000 (1.005-1.030) L 11/01/20 22:18 Urine Protein 1+ (Negative) H 11/01/20 22:18 Urine Glucose (UA) Norm (Normal) 11/01/20 22:18 Urine Ketones Negative (Negative) 11/01/20 22:18 Urine Blood 3+ (Negative) H 11/01/20 22:18 Urine Nitrate Negative (Negative) 11/01/20 22:18 Urine Bilirubin Neg (Negative) 11/01/20 22:18 Urine Urobilinogen Norm mg/dL (Negative) 11/01/20 22:18 Ur Leukocyte Esterase Negative (Negative) 11/01/20 22:18 Urine RBC 5-10 /hpf (0-2) H 11/01/20 22:18 Urine WBC 0-4 /hpf (0-5) H 11/01/20 22:18 Ur Squamous Epith Cells 15-25 /hpf (0-5) H 11/01/20 22:18 Amorphous Sediment Not Reportable 11/01/20 22:18 Urine Bacteria 1+ /hpf (NONE) H 11/01/20 22:18 Nasal/Oral COVID-19 PCR Detected H 11/02/20 06:45 SARS-CoV-2 Ag (Rapid) Negative (Negative) 11/01/20 20:36 Impressions Chest CTA 11/01/20 19:52 IMPRESSION: 1. Negative for pulmonary embolism. 2. Widespread airspace disease. 3. Imaging features can be seen with COVID-19 pneumonia, though are nonspecific and can occur with a variety of infectious and noninfectious processes. (Reference: Pavel) 4. Incidental right adrenal gland nodule. Indeterminate characterization. 5. Non-emergent adrenal CT is recommended. (Reference: Bryant) REFERENCES: 1. Bryant VELASQUEZ, et al. Management of Incidental Adrenal Masses: A White Paper of the ACR Incidental Findings Committee. J Am Nikki Radiol. 2017;14(8):7150-8181. 2. Pavel Palma, et al., Radiological Society of [place] Expert Consensus Statement on Reporting Chest CT Findings Related to COVID-19. Endorsed by the Society of Thoracic Radiology, the [place] [employer], and RSNA. Published June 26, 2019. Radiation Dose CTDIVOL = (mGy): DLP = 538.42 (mGy-cm) Chest X-Ray 11/08/20 09:21 IMPRESSION: Bilateral diffuse pulmonary opacities are similar to the prior study. Micro: Microbiology 11/05/20 09:00 Gram Stain - Final Sputum - Expectorated Sputum Sputum Culture - Final Streptococcus Group C 11/06/20 14:40 Gram Stain - Final Sputum - Endotracheal Tube Aspirate Sputum Culture - Final 11/07/20 10:56 Blood Culture - Preliminary Blood NEGATIVE TO DATE 11/07/20 11:01 Blood Culture - Preliminary Blood NEGATIVE TO DATE A&P Assessment and plan (1) Acute respiratory failure: Status: Acute Qualifiers: Respiratory failure complication: hypoxia Qualified Code(s): J96.01 - Acute respiratory failure with hypoxia (2) ARDS (adult respiratory distress syndrome): Status: Acute (3) Pneumonia due to severe acute respiratory syndrome coronavirus 2 (SARS-CoV-2): Status: Acute (4) DVT (deep venous thrombosis): Status: Acute Qualifiers: DVT location: lower extremity Affected thrombotic vein of extremity: tibial Chronicity: acute Laterality: right Qualified Code(s): I82.441 - Acute embolism and thrombosis of right tibial vein (5) Septic shock: Status: Acute (6) Diabetes: Status: Acute Qualifiers: Diabetes mellitus type: type 2 Diabetes mellitus senior living insulin use: unspecified parts counterman insulin use status Diabetes mellitus complication status: with other specified complication Qualified Code(s): E11.69 - Type 2 diabetes mellitus with other specified complication (7) Renal failure: Status: Acute Qualifiers: Renal failure chronicity: acute Acute renal failure type: with acute tubular necrosis Qualified Code(s): N17.0 - Acute kidney failure with tubular necrosis # Acute hypoxic resp failure due to ARDS due to Covid 19 pneumonia # Right lower extremity DVT # TEETEE due to ATN - Currently non oliguric - ?? contrast induced # Septic shock resolved - off pressors # Diabetes - controlled on scale coverage - Extubated to HFNC 40 L 60% - CXR: Bilateral diffuse pulmonary opacities are similar to the prior study. - On Dexamethasone 6 mg ivp daily; s/p 5 day course remdesivir, and received tocilizumab - Sputum + ve for streptococcus group C - Currently on Linezolid and cefepime renally adjusted - On heparin drip for DVT ; monitor aPTT q 6hr and adjust dosage as per protocol - pt on bumex 2 mg q 12hr and Sodium bicarb drip - good urine out put; Bicarb 21; Normal electrolytes except high Phosphorus - Monitor Renal fx, electrolytes, urine output and if worsening - will call nephrology consult - H2 Radhika for GI ppx prognosis: guarded condition: stable code: Full NOK: updated case discussed with Hospitalist and RN, RT covering the patient Overall renal functions need to be monitored closely along with respiratory function Attestations Medical Necessity Statement*: Needs continued hospitalization secondary to respiratory failure from COVID-19 pneumonia requiring high flow oxygen, being extubated from mechanical ventilation today and close monitoring of renal functions in pt with underlying diabetes, contrast exposure, rhabdomyolysis Time Spent in Patient Care: Greater than 35 minutes (>than 50% of time spent in counselling and/or direct pt care on unit). Critical Care Time: The high probability of a clinically significant, sudden or life threatening deterioration of the patient's [respiratory,renal ] system(s) required my full and direct attention, intervention and personal management. The critical care time is as shown. 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 [facility] Fwd Patient Type Established History Comprehensive Exam Comprehensive Medical Decision Making High Complexity Diagnoses Acute respiratory failure J96.01 Respiratory failure complication: hypoxia ARDS (adult respiratory distress syndrome) J80 Pneumonia due to severe acute respiratory syndrome coronavirus 2 (SARS-CoV-2) U07.1; J12.82 DVT (deep venous thrombosis) I82.441 DVT location: lower extremity Affected thrombotic vein of extremity: tibial Chronicity: acute Laterality: right Septic shock A41.9; R65.21 Diabetes E11.69 Diabetes mellitus type: type 2 Diabetes mellitus senior living insulin use: unspecified parts counterman insulin use status Diabetes mellitus complication status: with other specified complication Renal failure N17.0 Renal failure chronicity: acute Acute renal failure type: with acute tubular necrosis Time Spent (min) 60
--- NOTE | 2020-11-09 12:29 | PC.NURSE ---
Extubated at 1205. Tolerated procedure well. Placed on heated high-flow. Respirations 16 even and non-labored.
--- NOTE | 2020-11-09 13:55 | P.PN_ITS ---
Subjective Subjective: Interval history: Bridget was extubated this morning. She reports she feels like she is doing okay. She seems somewhat anxious. Medications: Reviewed: Yes Vitals/I&O/Wt Last Vital Signs Temp 97.6 F 11/09/20 08:00 Pulse 82 11/09/20 12:00 Resp 16 11/09/20 12:00 BP 157/82 11/09/20 12:00 Pulse Ox 90 11/09/20 12:00 11/08/20 11/09/20 11/09/20 22:59 06:59 14:59 Intake Total 1337.333 / 2618.317 405.553 / 3023.870 843.936 / 843.936 Output Total 850 / 850 1195 / 2045 Balance 487.333 / 1768.317 -789.447 / 978.870 843.936 / 843.936 Weight last 48 hrs Weight 118.433 kg Weight 116.392 kg Physical Exam Narrative: EXAM NARRATIVE: General exam is no apparent distress HEENT: Atraumatic normocephalic. High flow oxygen noted. Some rotary nystagmus. Neck is supple no lymphadenopathy or thyromegaly Cardiovascular regular rate and rhythm without murmur Lungs clear Abdomen is soft positive bowel sounds : Hope noted. Extremities no cyanosis clubbing or edema Urinary Catheter Management^: Hope: Cath Placed During This Visit: yes Reason for Continuing Indwelling Catheter: Accurate Measurement of Urinary Output in Critically Ill Patients Urinary Catheter Date of Insertion: 11/02/20 Urinary Catheter Time of Insertion: 08:45 Data : 11/09/20 03:35 11/09/20 03:35 Micro: Microbiology 11/05/20 09:00 Gram Stain - Final Sputum - Expectorated Sputum Sputum Culture - Final Streptococcus Group C 11/06/20 14:40 Gram Stain - Final Sputum - Endotracheal Tube Aspirate Sputum Culture - Final 11/07/20 10:56 Blood Culture - Preliminary Blood NEGATIVE TO DATE 11/07/20 11:01 Blood Culture - Preliminary Blood NEGATIVE TO DATE A&P Assessment and plan (1) Acute respiratory failure: She has been transitioned to heated high flow, and is tolerating that. Continue dexamethasone She has completed her course of remdesivir She did receive Tocilizumab Continue empiric cefepime MRSA PCR negative White blood cell count has decreased Pulmonary toilet Sputum demonstrated group C strep Status: Acute (2) Septic shock: Pressor requirement slowly coming down. Continues on empiric antibiotic coverage with cefepime, linezolid. Status: Acute (3) TEETEE (acute kidney injury): Acute renal failure. Hold ARB Close monitoring for improvement. If none is seen consider nephrology consultation Hold statin for now secondary to severity of renal failure Check creatinine phosphokinase Renal ultrasound Status: Acute (4) DVT (deep venous thrombosis): Heparin drip currently Status: Acute (5) Diabetes: Sliding scale insulin. Cautious secondary to renal failure Status: Acute (6) ARDS (adult respiratory distress syndrome): Extubated today. Status: Acute Attestations Medical Necessity Statement*: Needs continued hospitalization secondary to respiratory failure from COVID-19 pneumonia requiring high flow oxygen, being extubated from mechanical ventilation today. 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
[2020-11-09 15:59] LABS: Partial Thromboplastin Time 40.7 SECONDS (23.9-36.7)
[2020-11-09 17:08] LABS: Glucose Point of Care 129 mg/dL (70-110)
[2020-11-09] MEDS: heparin 5,000 unit/mL INJ 1 mL IV (17:59)
--- NOTE | 2020-11-09 18:06 | PC.NURSE ---
56.4 mg Fentanyl wasted with Annetta Pérez RN.
--- NOTE | 2020-11-09 18:40 | PC.NURSE ---
Shift Note Frequent safety and comfort rounds continue. Orders and/or nursing care completed as indicated. Patient monitored for response to intervention and treatment(s). Education provided includes: Extubation and IS use and importance of turning, coughing and deep breathing. Also, importance of physical therapy. Patient verbalized understanding.
[2020-11-09] MEDS: heparin drip 25,000 UNIT/500 ML PREMIX 28 UNIT IV (18:54)
[2020-11-09 20:25] LABS: Creatine Phosphokinase 1062 U/L (26-192)
[2020-11-09 22:51] LABS: Glucose Point of Care 110 mg/dL (70-110)
[2020-11-09 23:18] LABS: Partial Thromboplastin Time 144.2 SECONDS (23.9-36.7)
[2020-11-10] VITALS (10 sets, daily range): PULSE 77–87; RESP 20–30; O2SAT 90–93
--- NOTE | 2020-11-10 | US_ITS ---
WS: [id number] ULTRASOUND RENAL TECHNIQUE: Ultrasound examination of both kidneys. CLINICAL INFORMATION: renal failiure COMPARISON: None. FINDINGS: RIGHT: Right kidney is normal in size and appearance. Echogenicity: Normal. Cortical thickness: 1.1 cm; Normal. Hydronephrosis: None. Perinephric fluid: None. Right kidney measures: 9.2 cm x 4.8 cm x 5.1 cm. LEFT: Left kidney is normal in size and appearance. Echogenicity: Normal. Cortical thickness: 1.7 cm; Normal. Hydronephrosis: None. Perinephric fluid: None. Left kidney measures: 9.8 cm x 5.8 cm x 7.3 cm. Aorta not visualized. Hope catheter. US/US renal BI* [id number] IMPRESSION: Technically difficult examination due to body habitus 1. No hydronephrosis in either kidney. 2. Hope catheter. 3. No other significant findings.
[2020-11-10] MEDS: acetaminophen 500 mg Tablet PO ×2 (03:30→15:49)
[2020-11-10 06:31] LABS: Basophils # 0.1 10^3/uL (0.0-0.1); Basophils % 0.4 %; Eosinophils # 0.2 10^3/uL (0.0-0.8); Eosinophils % 1.1 %; Hematocrit 33.3 % (37.0-47.0); Hemoglobin 11.2 g/dL (11.5-15.3); Lymphocytes # 1.3 10^3/uL (0.8-4.8); Mean Corpuscular HGB Conc 33.6 g/dL (30.0-36.0); Mean Corpuscular Hemoglobin 29.6 pg (28.0-34.0); Mean Corpuscular Volume 88.1 fL (81-99); Mean Platelet Volume 10.4 fL (7.4-10.4); Monocytes # 0.7 10^3/uL (0.2-0.9); Monocytes % 4.4 %; Neutrophils # 13.43 10^3/uL (1.8-7.7); Neutrophils % 83.4 %; Nucleated Red Blood Cells % 0 %; Platelet Count 192 10^3/cmm (130-400); Red Blood Count 3.78 10^6/uL (4.1-5.3); Red Cell Distribution Width 11.8 % (12.1-15.1); White Blood Count 16.1 10^3/uL (4.0-10.0)
[2020-11-10 06:57] LABS: Alanine Aminotransferase 17 U/L (0-33); Alkaline Phosphatase 71 IU/L (35-105); Anion Gap 21.5 (5-19); Aspartate Amino Transferase 55 U/L (0-32); Blood Urea Nitrogen 66 mg/dL (6-20); Calcium 7.7 mg/dL (8.5-10.5); Carbon Dioxide 28 mmol/L (22-29); Chloride 87 mmol/L (98-107); Globulin 2.4 g/dL (1.3-4.6); Glomerular Filtration Rate 9.8 mL/min (90-130); Glucose 88 mg/dL (65-115); Osmolality Calculated 294 mOsm/kg (285-295); Potassium 3.5 mmol/L (3.5-5.1); Sodium 133 mmol/L (136-145); Total Bilirubin 0.6 mg/dL (0.15-1.2); Total Protein 5.4 g/dL (6.6-8.7)
[2020-11-10 07:04] LABS: Creatine Phosphokinase 1088 U/L (26-192)
[2020-11-10 07:50] LABS: Glucose Point of Care 104 mg/dL (70-110)
[2020-11-10] MEDS: cefepime 1,000 MG in sodium chloride 0.9% (plus) 100 ML 200 MG IV (08:09)
[2020-11-10] MEDS: linezolid premix 600 MG/300 ML PREMIX 300 MG IV ×2 (08:10→19:55)
[2020-11-10] MEDS: famotidine 20 mg/2 mL INJ IVP ×2 (08:12→16:52)
[2020-11-10] MEDS: dexamethasone 4 mg/mL INJ 6 MG IVP (08:14)
[2020-11-10 08:51] LABS: Basophils # 0.1 10^3/uL (0.0-0.1); Basophils % 0.4 %; Eosinophils # 0.3 10^3/uL (0.0-0.8); Eosinophils % 1.3 %; Hematocrit 34.6 % (37.0-47.0); Lymphocytes # 1.9 10^3/uL (0.8-4.8); Lymphocytes % 9.1 %; Mean Corpuscular HGB Conc 34.7 g/dL (30.0-36.0); Mean Corpuscular Hemoglobin 30.2 pg (28.0-34.0); Mean Corpuscular Volume 87.2 fL (81-99); Mean Platelet Volume 10.2 fL (7.4-10.4); Monocytes # 0.8 10^3/uL (0.2-0.9); Monocytes % 3.9 %; Neutrophils # 17.58 10^3/uL (1.8-7.7); Neutrophils % 82.7 %; Nucleated Red Blood Cells % 0 %; Platelet Count 220 10^3/cmm (130-400); Red Blood Count 3.97 10^6/uL (4.1-5.3); Red Cell Distribution Width 11.8 % (12.1-15.1); White Blood Count 21.3 10^3/uL (4.0-10.0)
--- NOTE | 2020-11-10 09:43 | PC.NURSE ---
Shift Note Frequent safety and comfort rounds continue. Orders and/or nursing care completed as indicated. Patient monitored for response to intervention and treatment(s). Education provided includes turn, cough, and deep breathing. Patient voiced verbal understanding of teaching but still needs further reinforcement. Patient is alert and oriented x4. She is on heated high flow at 45 L and 70% FiO2. Right AC IV is saline locked at this time, left AC IV has heparin gtt infusing at 20 mls/hr per Heparin gtt protocol. Right IJ central line has sodium bicarb in D5 infusing at 15 mls/hr. Hope catheter drained 1750 mls of bright red urine out all evening. Patient has a stage 2 pressure injury to the sacrum, it is covered with an Optifoam dressing. No other wounds or skin issues noted at this time. Will continue to monitor.
[2020-11-10 11:40] LABS: Glucose Point of Care 140 mg/dL (70-110)
[2020-11-10 12:54] LABS: Partial Thromboplastin Time 35.4 SECONDS (23.9-36.7)
--- NOTE | 2020-11-10 13:31 | PC.NURSE ---
Patient reports pain 6 out of 10 on pain scale. Patient offered PRN medications, but has refused.
--- NOTE | 2020-11-10 14:04 | US_ITS ---
WS: [id number] ULTRASOUND RENAL TECHNIQUE: Ultrasound examination of both kidneys. CLINICAL INFORMATION: renal failiure COMPARISON: None. FINDINGS: RIGHT: Right kidney is normal in size and appearance. Echogenicity: Normal. Cortical thickness: 1.1 cm; Normal. Hydronephrosis: None. Perinephric fluid: None. Right kidney measures: 9.2 cm x 4.8 cm x 5.1 cm. LEFT: Left kidney is normal in size and appearance. Echogenicity: Normal. Cortical thickness: 1.7 cm; Normal. Hydronephrosis: None. Perinephric fluid: None. Left kidney measures: 9.8 cm x 5.8 cm x 7.3 cm. Aorta not visualized. Hope catheter.
--- NOTE | 2020-11-10 14:11 | PC.NUTR ---
Addendum entered by Adrienne Hassan 11/10/20 14:12: Will send Nepro BID at this time given TEETEE, and can change to Glucerna at later time. Original Note: Nutrition follow up: Stage 2 pressure injury to sacrum noted. Diet advanced to GI soft today. Pt has been drinking some fluids, but unclear at this time whether she will tolerate GI soft diet. Recommend provide preferences and liquid items as needed and encourage po intakes. Will add Glucerna BID to provide additional kcal/protein to promote wound healing. See full RD assessment for further details.
[2020-11-10] MEDS: albuterol 8 gm MDI 2 PUFF INHALATION ×2 (15:41→20:58)
--- NOTE | 2020-11-10 15:53 | PC.NURSE ---
Patient requested PRN 500mg Tylenol at 1551 for pain located at the buttox. This nurse administered 500mg PRN Tylenol and encouraged position change, also placing a pillow under the left hip for pressure displacement.
--- NOTE | 2020-11-10 15:58 | PM.PN ---
Subjective Subjective: Interval history: Bridget reports she is doing okay but tired of sitting in a chair. She was extubated yesterday. Medications: Reviewed: Yes Vitals/I&O/Wt Last Vital Signs Temp 97.6 F 11/09/20 08:00 Pulse 84 11/10/20 15:37 Resp 30 H 11/10/20 15:30 BP 157/82 11/09/20 12:00 Pulse Ox 93 11/10/20 15:30 11/10/20 11/10/20 11/10/20 06:59 14:59 22:59 Intake Total 131.133 / 2070.491 400 / 400 Output Total 1750 / 3950 Balance -1618.867 / -1879.509 400 / 400 Weight last 48 hrs Weight 118.433 kg Physical Exam Narrative: EXAM NARRATIVE: General exam is no apparent distress HEENT: Atraumatic normocephalic. No significant nystagmus Neck supple Cardiovascular regular rate and rhythm without murmur Lungs clear Abdomen is soft positive bowel sounds : Hope noted. Extremities no cyanosis clubbing or edema Urinary Catheter Management^: Hope: Cath Placed During This Visit: yes Reason for Continuing Indwelling Catheter: Accurate Measurement of Urinary Output in Critically Ill Patients Urinary Catheter Date of Insertion: 11/02/20 Urinary Catheter Time of Insertion: 08:45 Data : 11/10/20 08:40 11/10/20 05:55 A&P Assessment and plan (1) Acute respiratory failure: She has been transitioned to heated high flow, FiO2 of 85% Continue dexamethasone She has completed her course of remdesivir She did receive Tocilizumab Continue empiric cefepime, linezolid MRSA PCR negative White blood cell count has increased from yesterday Pulmonary toilet Sputum demonstrated group C strep Status: Acute Qualifiers: Respiratory failure complication: hypoxia Qualified Code(s): J96.01 - Acute respiratory failure with hypoxia (2) Septic shock: Pressor requirement slowly coming down. Continues on empiric antibiotic coverage with cefepime, linezolid. Status: Acute (3) TEETEE (acute kidney injury): Acute renal failure. Hold ARB No significant improvement in renal function Hold statin for now secondary to severity of renal failure CK checked in approximately 1000. No significant change overnight. Renal ultrasound demonstrated no obstruction Nearly 2900 cc in output. With renal function stabilizing, hopeful that improvement will be noted by tomorrow. Status: Acute (4) DVT (deep venous thrombosis): Heparin drip currently Status: Acute Qualifiers: DVT location: lower extremity Affected thrombotic vein of extremity: tibial Chronicity: acute Laterality: right Qualified Code(s): I82.441 - Acute embolism and thrombosis of right tibial vein (5) Diabetes: Sliding scale insulin. Cautious secondary to renal failure Status: Acute Qualifiers: Diabetes mellitus type: type 2 Diabetes mellitus intermediate insulin use: unspecified assistant terminal manager insulin use status Diabetes mellitus complication status: with other specified complication Qualified Code(s): E11.69 - Type 2 diabetes mellitus with other specified complication (6) ARDS (adult respiratory distress syndrome): Extubated today. Status: Acute Additional A&P Information Rhabdomyolysis. Likely induced from Covid. Statin was discontinued. CK has not increased significantly. Attestations Medical Necessity Statement*: Needs continued hospitalization secondary to COVID-19 pneumonia requiring high flow oxygen. 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
[2020-11-10] MEDS: heparin 5,000 unit/mL INJ 1 mL IV ×2 (16:52→22:39)
[2020-11-10 18:09] LABS: Anion Gap 18.3 (5-19); Blood Urea Nitrogen 69 mg/dL (6-20); Carbon Dioxide 29 mmol/L (22-29); Chloride 89 mmol/L (98-107); Glomerular Filtration Rate 9.6 mL/min (90-130); Glucose 128 mg/dL (65-115); Osmolality Calculated 296 mOsm/kg (285-295); Potassium 4.3 mmol/L (3.5-5.1); Sodium 132 mmol/L (136-145)
--- NOTE | 2020-11-10 18:30 | PC.NURSE ---
Patient was complaining to this nurse about her feet feeling numb. Nurse educated patient on importance of ROM exercises. Bilateral calves are red and warm to touch. Dr. Sharp aware and visualized extremities.
--- NOTE | 2020-11-10 18:30 | PC.NURSE ---
Shift Note Frequent safety and comfort rounds continue. Orders and/or nursing care completed as indicated. Patient monitored for response to intervention and treatment(s), this nurse noted patient exhibiting signs of activity intolerance when standing and pivoting to chair and when returning to bed; evidenced by decrease in oxygen saturation and pursed lip breathing. Education provided includes importance of movement and deep breathing, as well as coughing out secretions. Educated about scheduled medications as well as PRN Tylenol. Patient verbalized understanding of teaching. This nurse recommends continued reinforcement of teaching. Patient reports pain 7 out of 10 on pain scale, located in buttock. PRN Tylenol given and pillow placed to reduce pressure on buttock to patients comfort, with relief to 5 on pain scale. Patient refuses further pain relief medication. Current oxygen settings are Fio2 at 85 and Consistent flow of 36.
[2020-11-10] MEDS: heparin drip 25,000 UNIT/500 ML PREMIX 28 UNIT IV (19:00)
--- NOTE | 2020-11-10 19:19 | PC.NURSE ---
Bedside shift report received from Cherelle. Patient sitting up in bed, eating applesauce. bilateral IVs and IJ appear intact. Heated high flow intact.
[2020-11-10 19:55] LABS: Glucose Point of Care 143 mg/dL (70-110)
[2020-11-10 21:52] LABS: Glucose Point of Care 105 mg/dL (70-110)
[2020-11-10 22:09] LABS: Partial Thromboplastin Time 29.9 SECONDS (23.9-36.7)
--- NOTE | 2020-11-10 22:45 | PM.PN ---
Subjective Subjective: Interval history: -Seen multiple times at bedside throughout the day -Sitting out of bed to chair-appeared comfortable -On 36 L and 80% FiO2 high flow nasal cannula -Labs and imaging reviewed Medications: Reviewed: Yes Vitals/I&O/Wt Last Vital Signs Temp 97.6 F 11/09/20 08:00 Pulse 85 11/10/20 20:59 Resp 22 H 11/10/20 20:59 BP 157/82 11/09/20 12:00 Pulse Ox 91 11/10/20 20:59 11/10/20 11/10/20 11/10/20 06:59 14:59 22:59 Intake Total 131.133 / 2070.491 400 / 400 759.950 / 1159.950 Output Total 1750 / 3950 1650 / 1650 Balance -1618.867 / -1879.509 400 / 400 -890.050 / -490.050 Weight last 48 hrs Weight 261 lb 1.6 oz Physical Exam Narrative: EXAM NARRATIVE: General: lying in bed, extubated to HFNC, sitting out of bed to chair HEENT:NCAT, PERRLA, EOMI Neck: Supple Lungs: Improved breath sounds bilaterally Heart: s1/s2, RRR Abd: soft, NT, ND, BS + Normoactive Extremities: No edema EVENT DECORATOR AND DESIGNER: Improved mentation and follows commands, no FND, SKIN: no rash Urinary Catheter Management^: Hope: Cath Placed During This Visit: yes Reason for Continuing Indwelling Catheter: Other Urinary Catheter Date of Insertion: 11/02/20 Urinary Catheter Time of Insertion: 08:45 Data : 11/10/20 08:40 11/10/20 16:57 Other Labs: Laboratory Results WBC 21.3 10^3/uL (4.0-10.0) H 11/10/20 08:40 RBC 3.97 10^6/uL (4.1-5.3) L 11/10/20 08:40 Hgb 12.0 g/dL (11.5-15.3) 11/10/20 08:40 Hct 34.6 % (37.0-47.0) L 11/10/20 08:40 MCV 87.2 fL (81-99) 11/10/20 08:40 MCH 30.2 pg (28.0-34.0) 11/10/20 08:40 MCHC 34.7 g/dL (30.0-36.0) 11/10/20 08:40 RDW 11.8 % (12.1-15.1) L 11/10/20 08:40 Plt Count 220 10^3/cmm (130-400) 11/10/20 08:40 MPV 10.2 fL (7.4-10.4) 11/10/20 08:40 Neut % (Auto) 82.7 % 11/10/20 08:40 Lymph % (Auto) 9.1 % 11/10/20 08:40 [place] % (Auto) 3.9 % 11/10/20 08:40 Eos % (Auto) 1.3 % 11/10/20 08:40 Baso % (Auto) 0.4 % 11/10/20 08:40 Neut # (Auto) 17.58 10^3/uL (1.8-7.7) H 11/10/20 08:40 Lymph # (Auto) 1.9 10^3/uL (0.8-4.8) 11/10/20 08:40 [place] # (Auto) 0.8 10^3/uL (0.2-0.9) 11/10/20 08:40 Eos # (Auto) 0.3 10^3/uL (0.0-0.8) 11/10/20 08:40 Baso # (Auto) 0.1 10^3/uL (0.0-0.1) 11/10/20 08:40 Nucleated RBC % (auto) 0 % 11/10/20 08:40 Total Counted 100 (0-100) 11/03/20 04:03 Atypical Lymphs % 0.0 % (0-5) 11/03/20 04:03 Absolute Neutrophils 8.6 10^3/cmm (1.4-6.5) H 11/03/20 04:03 Segmented Neutrophils 73 % 11/03/20 04:03 Abs Segm Neuts (Man) 7.3 10/cmm (1.6-7.1) H 11/03/20 04:03 Band Neutrophils 13.0 % 11/03/20 04:03 Abs Band Neuts (Man) 1.3 10^3/cmm (0.0-1.2) H 11/03/20 04:03 Absolute Lymphocytes 0.8 10^3/cmm (1.2-3.4) L 11/03/20 04:03 Lymphocytes (Manual) 8 % 11/03/20 04:03 Monocytes (Manual) 6.0 % 11/03/20 04:03 Absolute Monocytes 0.6 10^3/cmm (0.1-0.6) 11/03/20 04:03 Eosinophils (Manual) 0 % 11/03/20 04:03 Absolute Eosinophils 0.0 10^3/cmm (0.0-0.7) 11/03/20 04:03 Basophils (Manual) 0.0 % 11/03/20 04:03 Absolute Basophils 0.0 10^3/cmm (0.0-0.2) 11/03/20 04:03 Nucleated RBCs # 0.0 /100WBC 11/10/20 08:40 Platelet Estimate Normal (Normal) 11/03/20 04:03 PT 12.00 SECONDS (12.1-14.9) L 11/01/20 20:30 INR 0.86 (0.8-1.2) 11/01/20 20:30 APTT 29.9 SECONDS (23.9-36.7) 11/10/20 21:46 D-Dimer >= 20.00 ug/mIFEU (0-0.59) H 11/07/20 05:14 Specimen Type Arterial 11/06/20 17:00 Sample Site Radial, right 11/06/20 17:00 ABG pH 7.33 (7.35-7.45) L 11/06/20 17:00 ABG pCO2 53.5 mmHg (35-45) H 11/06/20 17:00 ABG pO2 92.5 mmHg (80.0-100.0) 11/06/20 17:00 ABG HCO3 27.9 mmol/L (22-26) H 11/06/20 17:00 ABG O2 Saturation 96.3 11/06/20 17:00 ABG Base Excess 0.7 mmol/L (-2.0-2.0) 11/06/20 17:00 Sammy Test Pos 11/06/20 17:00 A-a O2 Gradient 53.7 mmHg (5-10) H 11/06/20 17:00 Hematocrit 46.8 % (37-47) 11/06/20 17:00 Hgb O2 Saturation 94.7 % (95-100) L 11/06/20 17:00 Carboxyhemoglobin 0.7 %THgb (0.4-20.1) 11/06/20 17:00 Methemoglobin 1.0 % (0.4-1.5) 11/06/20 17:00 Total Hemoglobin 15.3 g/dL (12-16) 11/06/20 17:00 Sodium 137.0 mmol/L (131-143) 11/06/20 17:00 Potassium 4.2 mmol/L (3.5-5.0) 11/06/20 17:00 Glucose 179.0 mg/dL (70-115) H 11/06/20 17:00 Ionized Calcium 1.2 mmol/L (1.1-1.4) 11/06/20 17:00 O2 Delivery Device Vent 11/06/20 17:00 O2 Liters/Min 12.0 % 11/02/20 10:49 FiO2 80.0 % 11/06/20 17:00 Tidal Volume 0.37 11/06/20 17:00 PEEP 12.0 cmH20 11/06/20 17:00 Process Safety Engineering Technologist ID Gd 11/06/20 17:00 Blood Gas Notified Time 1100 11/02/20 10:49 Sodium 132 mmol/L (136-145) L 11/10/20 16:57 Potassium 4.3 mmol/L (3.5-5.1) 11/10/20 16:57 Chloride 89 mmol/L (98-107) L 11/10/20 16:57 Carbon Dioxide 29 mmol/L (22-29) 11/10/20 16:57 Anion Gap 18.3 (5-19) 11/10/20 16:57 BUN 69 mg/dL (6-20) H 11/10/20 16:57 Creatinine 5.0 mg/dL (0.5-0.9) H 11/10/20 16:57 GFR Calculation 9.6 mL/min (90-130) L 11/10/20 16:57 Glucose 128 mg/dL (65-115) H 11/10/20 16:57 POC Glucose 105 mg/dL (70-110) 11/10/20 21:48 Estimat Average Glucose 134 11/07/20 05:14 Hemoglobin A1c 6.3 % (4.0-6.0) H 11/07/20 05:14 Calculated Osmolality 296 mOsm/kg (285-295) H 11/10/20 16:57 Lactic Acid 0.8 mmol/L (0.5-2.2) 11/01/20 20:30 Calcium 8.0 mg/dL (8.5-10.5) L 11/10/20 16:57 Phosphorus 8.5 mg/dL (2.5-4.5) H* 11/09/20 03:35 Magnesium 2.1 mg/dL (1.7-2.3) 11/09/20 03:35 Ferritin 1083 ng/mL (15-150) H 11/03/20 04:03 Total Bilirubin 0.6 mg/dL (0.15-1.2) 11/10/20 05:55 AST 55 U/L (0-32) H 11/10/20 05:55 ALT 17 U/L (0-33) 11/10/20 05:55 Alkaline Phosphatase 71 IU/L (35-105) 11/10/20 05:55 Lactate Dehydrogenase 591 U/L (135-214) H 11/03/20 04:03 Creatine Kinase 1088 U/L (26-192) H* 11/10/20 05:55 Troponin T Gen 5 ng/L 6 ng/L (0-10) 11/01/20 20:30 C-Reactive Protein 6.6 mg/L (0.0-4.9) H 11/06/20 03:59 NT-Pro-B Natriuret Pep 109 pg/mL (0-125) 11/01/20 20:30 Total Protein 5.4 g/dL (6.6-8.7) L 11/10/20 05:55 Albumin 3.0 g/dL (3.5-5.2) L 11/10/20 05:55 Globulin 2.4 g/dL (1.3-4.6) 11/10/20 05:55 Procalcitonin 0.07 ng/mL (0-0.5) 11/03/20 04:03 Urine Color Yellow (Yellow) 11/01/20 22:18 Urine Appearance Clear (CLEAR) 11/01/20 22:18 Urine pH 6.5 (5-7) 11/01/20 22:18 Ur Specific [place] 1.000 (1.005-1.030) L 11/01/20 22:18 Urine Protein 1+ (Negative) H 11/01/20 22:18 Urine Glucose (UA) Norm (Normal) 11/01/20 22:18 Urine Ketones Negative (Negative) 11/01/20 22:18 Urine Blood 3+ (Negative) H 11/01/20 22:18 Urine Nitrate Negative (Negative) 11/01/20 22:18 Urine Bilirubin Neg (Negative) 11/01/20 22:18 Urine Urobilinogen Norm mg/dL (Negative) 11/01/20 22:18 Ur Leukocyte Esterase Negative (Negative) 11/01/20 22:18 Urine RBC 5-10 /hpf (0-2) H 11/01/20 22:18 Urine WBC 0-4 /hpf (0-5) H 11/01/20 22:18 Ur Squamous Epith Cells 15-25 /hpf (0-5) H 11/01/20 22:18 Amorphous Sediment Not Reportable 11/01/20 22:18 Urine Bacteria 1+ /hpf (NONE) H 11/01/20 22:18 Nasal/Oral COVID-19 PCR Detected H 11/02/20 06:45 SARS-CoV-2 Ag (Rapid) Negative (Negative) 11/01/20 20:36 Impressions Chest CTA 11/01/20 19:52 IMPRESSION: 1. Negative for pulmonary embolism. 2. Widespread airspace disease. 3. Imaging features can be seen with COVID-19 pneumonia, though are nonspecific and can occur with a variety of infectious and noninfectious processes. (Reference: Pavel) 4. Incidental right adrenal gland nodule. Indeterminate characterization. 5. Non-emergent adrenal CT is recommended. (Reference: Bryant) REFERENCES: 1. Bryant VELASQUEZ, et al. Management of Incidental Adrenal Masses: A White Paper of the ACR Incidental Findings Committee. J Am Nikki Radiol. 2017;14(8):3684-7221. 2. Pavel Palma et al., Radiological Society of [place] Expert Consensus Statement on Reporting Chest CT Findings Related to COVID-19. Endorsed by the Society of Thoracic Radiology, the [place] [employer], and RSNA. Published June 26, 2019. Radiation Dose CTDIVOL = (mGy): DLP = 538.42 (mGy-cm) Chest X-Ray 11/08/20 09:21 IMPRESSION: Bilateral diffuse pulmonary opacities are similar to the prior study. Renal Ultrasound 11/10/20 14:04 IMPRESSION: Technically difficult examination due to body habitus 1. No hydronephrosis in either kidney. 2. Hope catheter. 3. No other significant findings. A&P Assessment and plan (1) Acute respiratory failure: Status: Acute Qualifiers: Respiratory failure complication: hypoxia Qualified Code(s): J96.01 - Acute respiratory failure with hypoxia (2) ARDS (adult respiratory distress syndrome): Status: Acute (3) Pneumonia due to severe acute respiratory syndrome coronavirus 2 (SARS-CoV-2): Status: Acute (4) Septic shock: Status: Acute (5) TEETEE (acute kidney injury): Status: Acute (6) DVT (deep venous thrombosis): Status: Acute Qualifiers: DVT location: lower extremity Affected thrombotic vein of extremity: tibial Chronicity: acute Laterality: right Qualified Code(s): I82.441 - Acute embolism and thrombosis of right tibial vein (7) Diabetes: Status: Acute Qualifiers: Diabetes mellitus type: type 2 Diabetes mellitus lobsterman insulin use: unspecified care home insulin use status Diabetes mellitus complication status: with other specified complication Qualified Code(s): E11.69 - Type 2 diabetes mellitus with other specified complication (8) Rhabdomyolysis due to COVID-19: Status: Acute # Acute hypoxic resp failure due to ARDS due to Covid 19 pneumonia # Right lower extremity DVT # TEETEE due to ATN - Currently non oliguric - ?? contrast induced # Septic shock resolved - off pressors # Diabetes - controlled on scale coverage #Rhabdomyolysis - Extubated to HFNC 36 L 80%; encourage incentive spirometry/flutter valve/out of bed to chair/physical therapy -Albuterol 2 puffs every 4 hour - CXR: Bilateral diffuse pulmonary opacities are similar to the prior study. - On Dexamethasone 6 mg ivp daily; s/p 5 day course remdesivir, and received tocilizumab - Sputum + ve for streptococcus group C - Currently on Linezolid and cefepime renally adjusted - On heparin drip for DVT ; monitor aPTT q 6hr and adjust dosage as per protocol -DC bumex 2 mg q 12hr and Sodium bicarb drip - good urine out put; Bicarb 21; Normal electrolytes except high Phosphorus - Monitor Renal fx, electrolytes, CK, urine output and if worsening - will call nephrology consult - H2 Radhika for GI ppx -Started on soft diet -Sugars well controlled-on scale coverage prognosis: guarded condition: stable code: Full NOK: updated case discussed with Hospitalist and RN, RT covering the patient Overall renal functions need to be monitored closely along with respiratory function Additional A&P Information Rhabdomyolysis. Likely induced from Covid. Statin was discontinued. CK has not increased significantly. Attestations Medical Necessity Statement*: Needs continued hospitalization secondary to respiratory failure from COVID-19 pneumonia requiring high flow oxygen, and close monitoring of renal functions in pt with underlying diabetes, contrast exposure, rhabdomyolysis Time Spent in Patient Care: Greater than 35 minutes (>than 50% of time spent in counselling and/or direct pt care on unit). Critical Care Time: The high probability of a clinically significant, sudden or life threatening deterioration of the patient's [respiratory,renal ] system(s) required my full and direct attention, intervention and personal management. The critical care time is as shown. This time is in addition to time spent performing any reported procedures but includes the following: [x] Data and vital sign review and interpretation [x] Patient assessment, examination and intervention [x] Documentation [x] Medication orders and management Critical Care Time (min): 60 Coding Level of Care Code Established Pt Acute Recruiting Coordinator for [facility] Fwd Patient Type Established History Comprehensive Exam Comprehensive Medical Decision Making High Complexity Diagnoses Acute respiratory failure J96.01 Respiratory failure complication: hypoxia ARDS (adult respiratory distress syndrome) J80 Pneumonia due to severe acute respiratory syndrome coronavirus 2 (SARS-CoV-2) U07.1; J12.82 Septic shock A41.9; R65.21 TEETEE (acute kidney injury) N17.9 DVT (deep venous thrombosis) I82.441 DVT location: lower extremity Affected thrombotic vein of extremity: tibial Chronicity: acute Laterality: right Diabetes E11.69 Diabetes mellitus type: type 2 Diabetes mellitus lobsterman insulin use: unspecified lobsterman insulin use status Diabetes mellitus complication status: with other specified complication Rhabdomyolysis due to COVID-19 U07.1; M62.82 Time Spent (min) 60
[2020-11-11] VITALS (64 sets, daily range): BP systolic 77–141; BP diastolic 48–87; PULSE 68–107; RESP 15–40; TEMP 36.5; O2SAT 78–98
--- NOTE | 2020-11-11 02:34 | PC.NURSE ---
Patient stated her catheter was bothering her. Checked tubing and drainage; tube is free of kinks and is draining properly. Reassured patient of placement.
[2020-11-11 04:17] LABS: Basophils % 0.2 %; Eosinophils # 0.1 10^3/uL (0.0-0.8); Eosinophils % 0.8 %; Hematocrit 32.8 % (37.0-47.0); Hemoglobin 11.1 g/dL (11.5-15.3); Lymphocytes % 6.6 %; Mean Corpuscular HGB Conc 33.8 g/dL (30.0-36.0); Mean Corpuscular Hemoglobin 30.6 pg (28.0-34.0); Mean Corpuscular Volume 90.4 fL (81-99); Monocytes % 6.8 %; Neutrophils # 12.13 10^3/uL (1.8-7.7); Neutrophils % 83.9 %; Nucleated Red Blood Cells % 0 %; Platelet Count 186 10^3/cmm (130-400); Red Blood Count 3.63 10^6/uL (4.1-5.3); Red Cell Distribution Width 11.9 % (12.1-15.1); White Blood Count 14.5 10^3/uL (4.0-10.0)
[2020-11-11 04:35] LABS: Partial Thromboplastin Time 29.8 SECONDS (23.9-36.7)
[2020-11-11] MEDS: famotidine 20 mg/2 mL INJ IVP ×2 (04:45→17:31)
[2020-11-11] MEDS: dexamethasone 4 mg/mL INJ 6 MG IVP (04:45)
[2020-11-11 04:47] LABS: Anion Gap 17.4 (5-19); Blood Urea Nitrogen 68 mg/dL (6-20); Calcium 8.3 mg/dL (8.5-10.5); Carbon Dioxide 29 mmol/L (22-29); Chloride 92 mmol/L (98-107); Glomerular Filtration Rate 9.8 mL/min (90-130); Glucose 85 mg/dL (65-115); Osmolality Calculated 297 mOsm/kg (285-295); Potassium 4.4 mmol/L (3.5-5.1); Sodium 134 mmol/L (136-145)
[2020-11-11 05:45] LABS: Partial Thromboplastin Time 43.9 SECONDS (23.9-36.7)
[2020-11-11] MEDS: heparin 5,000 unit/mL INJ 1 mL IV (06:04)
[2020-11-11 07:56] LABS: Glucose Point of Care 109 mg/dL (70-110)
[2020-11-11] MEDS: cefepime 1,000 MG in sodium chloride 0.9% (plus) 100 ML 200 MG IV (09:21)
[2020-11-11] MEDS: linezolid premix 600 MG/300 ML PREMIX 300 MG IV ×2 (09:21→20:55)
[2020-11-11] MEDS: sennosides-docusate Tablet 1 TAB PO (09:22)
[2020-11-11] MEDS: albuterol 8 gm MDI 2 PUFF INHALATION ×2 (09:25→16:10)
--- NOTE | 2020-11-11 10:46 | PC.CHAP ---
Pastoral Care Encounter/Spiritual Assessment Type of Contact [] Declined cook candy visit [] Patient/Family/Request visit [] Outpatient visit [] Follow-up visit [] Physician referral [] Code/Alert [x] Routine visit [] Staff referral [] Actively dying [] Patient sleeping [] Family support [] [] Out of room [] Palliative care [] [] Receiving care in room [] Pre-surgical visit [] Trauma [] Long length of stay [x] ICU visit [x] Other: oxygen... setting up Relational/Emotional Strength [] Patient feels connected with others/family/visitors/staff [] Distress [] Loneliness/isolation [] Abandonment Spirituality of Patient [] Person of Keysha [] Attends Islam of their Keysha [] Believes in Prayer [] Reads Bible or Congregation materials [] There are Spiritual issues to be addressed County Judge Interventions [x] Prayer [] Active listening [] Non-anxious presence [] Spiritual/emotional support [] Crisis/trauma care [] Spiritual counseling [] Bereavement support [] Provided bereavement packet [] Provided Bible/devotional materials [] Provided toy/stuffed animal, coloring book to patient or family member [] Provided Communion [] Anointing/Robins [] Salvation [x] Completed spiritual assessment [] Other: Impact on Illness or Injury [] Angry [] Fearful [] Anxious [] Often cries [] Exhaustion [] Unable to work [] Unable to attend sikhism [] Unable to walk/stand [] Unable to read [] Unable to drive [] Unable to eat/drink [] Unable to sleep [] Unable to be with family [] Patient intubated [] Other: Summary Time spent with patient
[2020-11-11 11:42] LABS: Glucose Point of Care 144 mg/dL (70-110)
[2020-11-11] MEDS: acetaminophen 500 mg Tablet PO (12:23)
--- NOTE | 2020-11-11 12:23 | PC.NURSE ---
Patient requested pain medication for pain 11/10. PRN Tylenol was given. She stated she did not need anything stronger for pain
[2020-11-11] MEDS: heparin drip 25,000 UNIT/500 ML PREMIX 38 UNIT IV (12:49)
--- NOTE | 2020-11-11 12:52 | PM.PN ---
Subjective Subjective: Interval history: Bridget reports she think she is a little bit better today. No chest discomfort. Shortness of breath still present. Medications: Reviewed: Yes Vitals/I&O/Wt Last Vital Signs Temp 97.6 F 11/09/20 08:00 Pulse 78 11/11/20 09:44 Resp 17 11/11/20 09:44 BP 157/82 11/09/20 12:00 Pulse Ox 90 11/11/20 09:44 11/10/20 11/11/20 11/11/20 22:59 06:59 14:59 Intake Total 759.950 / 1159.950 494.75 / 1654.700 924.167 / 924.167 Output Total 1650 / 1650 1100 / 2750 650 / 650 Balance -890.050 / -490.050 -605.25 / -1095.300 274.167 / 274.167 Weight last 48 hrs Weight 115.666 kg Physical Exam Narrative: EXAM NARRATIVE: General exam mild respiratory distress with conversation, excellent urine output HEENT: Atraumatic normocephalic. No significant nystagmus Neck supple Cardiovascular regular rate and rhythm without murmur Lungs clear Abdomen is soft positive bowel sounds : Hope noted. Extremities no cyanosis clubbing or edema Urinary Catheter Management^: Hope: Cath Placed During This Visit: yes Reason for Continuing Indwelling Catheter: Other Urinary Catheter Date of Insertion: 11/02/20 Urinary Catheter Time of Insertion: 08:45 Data : 11/11/20 04:00 11/11/20 04:00 A&P Assessment and plan (1) Acute respiratory failure: Still requiring significant FiO2, 90% Continue dexamethasone She has completed her course of remdesivir She did receive Tocilizumab Continue empiric cefepime, linezolid MRSA PCR negative White blood cell count improved Pulmonary toilet Sputum demonstrated group C strep Status: Acute Qualifiers: Respiratory failure complication: hypoxia Qualified Code(s): J96.01 - Acute respiratory failure with hypoxia (2) Septic shock: Off pressors Continues on empiric antibiotic coverage with cefepime, linezolid. Status: Acute (3) TEETEE (acute kidney injury): Acute renal failure. ARB discontinued No significant improvement in creatinine but significant urine output is present. I suspect creatinine will be improved by tomorrow. Hold statin for now secondary to severity of renal failure Mild rhabdo was noted. CK was stable around 1999. Renal ultrasound demonstrated no obstruction No need for nephrology consultation currently unless urine output wanes/creatinine increasing Recheck BMP tomorrow. Status: Acute (4) DVT (deep venous thrombosis): Heparin drip currently If renal function improves significantly could consider Lovenox in the future with transition to Eliquis Status: Acute Qualifiers: DVT location: lower extremity Affected thrombotic vein of extremity: tibial Chronicity: acute Laterality: right Qualified Code(s): I82.441 - Acute embolism and thrombosis of right tibial vein (5) Diabetes: Sliding scale insulin. Cautious secondary to renal failure Status: Acute Qualifiers: Diabetes mellitus type: type 2 Diabetes mellitus mcc insulin use: unspecified intermediate frame tender insulin use status Diabetes mellitus complication status: with other specified complication Qualified Code(s): E11.69 - Type 2 diabetes mellitus with other specified complication (6) ARDS (adult respiratory distress syndrome): Extubated 11/09 Status: Acute Additional A&P Information Rhabdomyolysis. Likely induced from Covid. Statin was discontinued. Attestations Medical Necessity Statement*: Needs continued hospital stay secondary to ARDS from COVID-19 pneumonia requiring high flow oxygen Coding Level of Care Code Acute Conference Services Manager for [facility] Diagnoses Acute respiratory failure J96.01 Respiratory failure complication: hypoxia Septic shock A41.9; R65.21 TEETEE (acute kidney injury) N17.9 DVT (deep venous thrombosis) I82.441 DVT location: lower extremity Affected thrombotic vein of extremity: tibial Chronicity: acute Laterality: right Diabetes E11.69 Diabetes mellitus type: type 2 Diabetes mellitus intermediate frame tender insulin use: unspecified mcc insulin use status Diabetes mellitus complication status: with other specified complication ARDS (adult respiratory distress syndrome) J80
[2020-11-11 12:55] LABS: Partial Thromboplastin Time 61.1 SECONDS (23.9-36.7)
[2020-11-11 17:31] LABS: Glucose Point of Care 101 mg/dL (70-110)
--- NOTE | 2020-11-11 19:36 | P.PN_ITS ---
Subjective Subjective: Interval history: -Patient seen multiple times at bedside today -Out of bed to chair and walked few steps with the help of walker -Still requiring high flow 34 L and 75% -Labs and imaging reviewed Medications: Reviewed: Yes Vitals/I&O/Wt Last Vital Signs Temp 97.6 F 11/09/20 08:00 Pulse 96 11/11/20 17:43 Resp 22 H 11/11/20 17:43 BP 157/82 11/09/20 12:00 Pulse Ox 92 11/11/20 17:43 11/11/20 11/11/20 11/11/20 06:59 14:59 22:59 Intake Total 494.75 / 1654.700 924.167 / 924.167 120 / 1044.167 Output Total 1100 / 2750 650 / 650 750 / 1400 Balance -605.25 / -1095.300 274.167 / 274.167 -630 / -355.833 Weight last 48 hrs Weight 255 lb Physical Exam Narrative: EXAM NARRATIVE: General: lying in bed, extubated to HFNC, sitting out of bed to chair HEENT:NCAT, PERRLA, EOMI Neck: Supple Lungs: Improved breath sounds bilaterally Heart: s1/s2, RRR Abd: soft, NT, ND, BS + Normoactive Extremities: No edema 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0) 11/11/20 04:00 RDW 11.9 % (12.1-15.1) L 11/11/20 04:00 Plt Count 186 10^3/cmm (130-400) 11/11/20 04:00 MPV 10.0 fL (7.4-10.4) 11/11/20 04:00 Neut % (Auto) 83.9 % 11/11/20 04:00 Lymph % (Auto) 6.6 % 11/11/20 04:00 [place] % (Auto) 6.8 % 11/11/20 04:00 Eos % (Auto) 0.8 % 11/11/20 04:00 Baso % (Auto) 0.2 % 11/11/20 04:00 Neut # (Auto) 12.13 10^3/uL (1.8-7.7) H 11/11/20 04:00 Lymph # (Auto) 1.0 10^3/uL (0.8-4.8) 11/11/20 04:00 [place] # (Auto) 1.0 10^3/uL (0.2-0.9) H 11/11/20 04:00 Eos # (Auto) 0.1 10^3/uL (0.0-0.8) 11/11/20 04:00 Baso # (Auto) 0.0 10^3/uL (0.0-0.1) 11/11/20 04:00 Nucleated RBC % (auto) 0 % 11/11/20 04:00 Total Counted 100 (0-100) 11/03/20 04:03 Atypical Lymphs % 0.0 % (0-5) 11/03/20 04:03 Absolute Neutrophils 8.6 10^3/cmm (1.4-6.5) H 11/03/20 04:03 Segmented Neutrophils 73 % 11/03/20 04:03 Abs Segm Neuts (Man) 7.3 10/cmm (1.6-7.1) H 11/03/20 04:03 Band Neutrophils 13.0 % 11/03/20 04:03 Abs Band Neuts (Man) 1.3 10^3/cmm (0.0-1.2) H 11/03/20 04:03 Absolute Lymphocytes 0.8 10^3/cmm (1.2-3.4) L 11/03/20 04:03 Lymphocytes (Manual) 8 % 11/03/20 04:03 Monocytes (Manual) 6.0 % 11/03/20 04:03 Absolute Monocytes 0.6 10^3/cmm (0.1-0.6) 11/03/20 04:03 Eosinophils (Manual) 0 % 11/03/20 04:03 Absolute Eosinophils 0.0 10^3/cmm (0.0-0.7) 11/03/20 04:03 Basophils (Manual) 0.0 % 11/03/20 04:03 Absolute Basophils 0.0 10^3/cmm (0.0-0.2) 11/03/20 04:03 Nucleated RBCs # 0.0 /100WBC 11/11/20 04:00 Platelet Estimate Normal (Normal) 11/03/20 04:03 PT 12.00 SECONDS (12.1-14.9) L 11/01/20 20:30 INR 0.86 (0.8-1.2) 11/01/20 20:30 APTT 61.1 SECONDS (23.9-36.7) H 11/11/20 12:00 D-Dimer >= 20.00 ug/mIFEU (0-0.59) H 11/07/20 05:14 Specimen Type Arterial 11/06/20 17:00 Sample Site Radial, right 11/06/20 17:00 ABG pH 7.33 (7.35-7.45) L 11/06/20 17:00 ABG pCO2 53.5 mmHg (35-45) H 11/06/20 17:00 ABG pO2 92.5 mmHg (80.0-100.0) 11/06/20 17:00 ABG HCO3 27.9 mmol/L (22-26) H 11/06/20 17:00 ABG O2 Saturation 96.3 11/06/20 17:00 ABG Base Excess 0.7 mmol/L (-2.0-2.0) 11/06/20 17:00 Sammy Test Pos 11/06/20 17:00 A-a O2 Gradient 53.7 mmHg (5-10) H 11/06/20 17:00 Hematocrit 46.8 % (37-47) 11/06/20 17:00 Hgb O2 Saturation 94.7 % (95-100) L 11/06/20 17:00 Carboxyhemoglobin 0.7 %THgb (0.4-20.1) 11/06/20 17:00 Methemoglobin 1.0 % (0.4-1.5) 11/06/20 17:00 Total Hemoglobin 15.3 g/dL (12-16) 11/06/20 17:00 Sodium 137.0 mmol/L (131-143) 11/06/20 17:00 Potassium 4.2 mmol/L (3.5-5.0) 11/06/20 17:00 Glucose 179.0 mg/dL (70-115) H 11/06/20 17:00 Ionized Calcium 1.2 mmol/L (1.1-1.4) 11/06/20 17:00 O2 Delivery Device Vent 11/06/20 17:00 O2 Liters/Min 12.0 % 11/02/20 10:49 FiO2 80.0 % 11/06/20 17:00 Tidal Volume 0.37 11/06/20 17:00 PEEP 12.0 cmH20 11/06/20 17:00 Channel Lip Wetter ID Gd 11/06/20 17:00 Blood Gas Notified Time 1100 11/02/20 10:49 Sodium 134 mmol/L (136-145) L 11/11/20 04:00 Potassium 4.4 mmol/L (3.5-5.1) 11/11/20 04:00 Chloride 92 mmol/L (98-107) L 11/11/20 04:00 Carbon Dioxide 29 mmol/L (22-29) 11/11/20 04:00 Anion Gap 17.4 (5-19) 11/11/20 04:00 BUN 68 mg/dL (6-20) H 11/11/20 04:00 Creatinine 4.9 mg/dL (0.5-0.9) H 11/11/20 04:00 GFR Calculation 9.8 mL/min (90-130) L 11/11/20 04:00 Glucose 85 mg/dL (65-115) 11/11/20 04:00 POC Glucose 101 mg/dL (70-110) 11/11/20 17:28 Estimat Average Glucose 134 11/07/20 05:14 Hemoglobin A1c 6.3 % (4.0-6.0) H 11/07/20 05:14 Calculated Osmolality 297 mOsm/kg (285-295) H 11/11/20 04:00 Lactic Acid 0.8 mmol/L (0.5-2.2) 11/01/20 20:30 Calcium 8.3 mg/dL (8.5-10.5) L 11/11/20 04:00 Phosphorus 8.5 mg/dL (2.5-4.5) H* 11/09/20 03:35 Magnesium 2.1 mg/dL (1.7-2.3) 11/09/20 03:35 Ferritin 1083 ng/mL (15-150) H 11/03/20 04:03 Total Bilirubin 0.6 mg/dL (0.15-1.2) 11/10/20 05:55 AST 55 U/L (0-32) H 11/10/20 05:55 ALT 17 U/L (0-33) 11/10/20 05:55 Alkaline Phosphatase 71 IU/L (35-105) 11/10/20 05:55 Lactate Dehydrogenase 591 U/L (135-214) H 11/03/20 04:03 Creatine Kinase 1088 U/L (26-192) H* 11/10/20 05:55 Troponin T Gen 5 ng/L 6 ng/L (0-10) 11/01/20 20:30 C-Reactive Protein 6.6 mg/L (0.0-4.9) H 11/06/20 03:59 NT-Pro-B Natriuret Pep 109 pg/mL (0-125) 11/01/20 20:30 Total Protein 5.4 g/dL (6.6-8.7) L 11/10/20 05:55 Albumin 3.0 g/dL (3.5-5.2) L 11/10/20 05:55 Globulin 2.4 g/dL (1.3-4.6) 11/10/20 05:55 Procalcitonin 0.07 ng/mL (0-0.5) 11/03/20 04:03 Urine Color Yellow (Yellow) 11/01/20 22:18 Urine Appearance Clear (CLEAR) 11/01/20 22:18 Urine pH 6.5 (5-7) 11/01/20 22:18 Ur Specific [place] 1.000 (1.005-1.030) L 11/01/20 22:18 Urine Protein 1+ (Negative) H 11/01/20 22:18 Urine Glucose (UA) Norm (Normal) 11/01/20 22:18 Urine Ketones Negative (Negative) 11/01/20 22:18 Urine Blood 3+ (Negative) H 11/01/20 22:18 Urine Nitrate Negative (Negative) 11/01/20 22:18 Urine Bilirubin Neg (Negative) 11/01/20 22:18 Urine Urobilinogen Norm mg/dL (Negative) 11/01/20 22:18 Ur Leukocyte Esterase Negative (Negative) 11/01/20 22:18 Urine RBC 5-10 /hpf (0-2) H 11/01/20 22:18 Urine WBC 0-4 /hpf (0-5) H 11/01/20 22:18 Ur Squamous Epith Cells 15-25 /hpf (0-5) H 11/01/20 22:18 Amorphous Sediment Not Reportable 11/01/20 22:18 Urine Bacteria 1+ /hpf (NONE) H 11/01/20 22:18 Nasal/Oral COVID-19 PCR Detected H 11/02/20 06:45 SARS-CoV-2 Ag (Rapid) Negative (Negative) 11/01/20 20:36 Impressions Chest CTA 11/01/20 19:52 IMPRESSION: 1. Negative for pulmonary embolism. 2. Widespread airspace disease. 3. Imaging features can be seen with COVID-19 pneumonia, though are nonspecific and can occur with a variety of infectious and noninfectious processes. (Reference: Pavel) 4. Incidental right adrenal gland nodule. Indeterminate characterization. 5. Non-emergent adrenal CT is recommended. (Reference: Bryant) REFERENCES: 1. Bryant VELASQUEZ, et al. Management of Incidental Adrenal Masses: A White Paper of the ACR Incidental Findings Committee. J Am Nikki Radiol. 2017;14(8):4263-9070. 2. Pavel Palma, et al., Radiological Society of [place] Expert Consensus Statement on Reporting Chest CT Findings Related to COVID-19. Endorsed by the Society of Thoracic Radiology, the [place] [employer] [place] [employer], and RSNA. Published June 26, 2019. Radiation Dose CTDIVOL = (mGy): DLP = 538.42 (mGy-cm) Chest X-Ray 11/08/20 09:21 IMPRESSION: Bilateral diffuse pulmonary opacities are similar to the prior study. Renal Ultrasound 11/10/20 00:00 IMPRESSION: Technically difficult examination due to body habitus 1. No hydronephrosis in either kidney. 2. Hoep catheter. 3. No other significant findings. A&P Assessment and plan (1) Acute respiratory failure: Status: Acute Qualifiers: Respiratory failure complication: hypoxia Qualified Code(s): J96.01 - Acute respiratory failure with hypoxia (2) ARDS (adult respiratory distress syndrome): Status: Acute (3) Pneumonia due to severe acute respiratory syndrome coronavirus 2 (SARS-CoV-2): Status: Acute (4) Septic shock: Status: Acute (5) TEETEE (acute kidney injury): Status: Acute (6) DVT (deep venous thrombosis): Status: Acute Qualifiers: DVT location: lower extremity Affected thrombotic vein of extremity: tibial Chronicity: acute Laterality: right Qualified Code(s): I82.441 - Acute embolism and thrombosis of right tibial vein (7) Diabetes: Status: Acute Qualifiers: Diabetes mellitus type: type 2 Diabetes mellitus detention insulin use: 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 contrast induced versus secondary to rhabdomyolysis # Septic shock resolved - off pressors # Diabetes - controlled on scale coverage #Rhabdomyolysis -Currently on HFNC 34 L 75%; encourage incentive spirometry/flutter valve/out of bed to chair/physical therapy -Albuterol 2 puffs every 4 hour - CXR: Bilateral diffuse pulmonary opacities are similar to the prior study. - On Dexamethasone 6 mg ivp daily; s/p 5 day course remdesivir, and received tocilizumab - Sputum + ve for streptococcus group C - Currently on Linezolid and cefepime renally adjusted - On heparin drip for DVT ; monitor aPTT q 6hr and adjust dosage as per protocol -DC bumex 2 mg q 12hr and Sodium bicarb drip - good urine out put; [id number]; Normal electrolytes except high Phosphorus - Monitor Renal fx, electrolytes, CK, urine output - if worsening will call n ephrology consult - H2 Radhika for GI ppx -Started on soft diet -Added senna to Colace for bowel regimen -Sugars well controlled-on scale coverage prognosis: guarded condition: stable code: Full NOK: updated case discussed with Hospitalist and RN, RT covering the patient Overall renal functions need to be monitored closely along with respiratory function We will consider switching to oral anticoagulation in couple of days and transfer out of ICU once FiO2 requirements come down less than 60% Additional A&P Information Rhabdomyolysis. Likely induced from Covid. Statin was discontinued. CK has not increased significantly. Attestations Medical Necessity Statement*: Needs continued hospitalization secondary to respiratory failure from COVID-19 pneumonia requiring high flow oxygen, and close monitoring of renal functions in pt with underlying diabetes, contrast exposure, rhabdomyolysis Time Spent in Patient Care: Greater than 35 minutes (>than 50% of time spent in counselling and/or direct pt care on unit) . Critical Care Time: The high probability of a clinically significant, sudden or life threatening deterioration of the patient's [respiratory,renal ] system(s) required my full and direct attention, intervention and personal management. The critical care time is as shown. 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 Type Established History Comprehensive Exam Comprehensive Medical Decision Making High Complexity Diagnoses Acute respiratory failure J96.01 Respiratory failure complication: hypoxia ARDS (adult respiratory distress syndrome) J80 Pneumonia due to severe acute respiratory syndrome coronavirus 2 (SARS-CoV-2) U07.1; J12.82 Septic shock A41.9; R65.21 TEETEE (acute kidney injury) N17.9 DVT (deep venous thrombosis) I82.441 DVT location: lower extremity Affected thrombotic vein of extremity: tibial Chronicity: acute Laterality: right Diabetes E11.69 Diabetes mellitus type: type 2 Diabetes mellitus detention insulin use: unspecified detention insulin use status Diabetes mellitus complication status: with other specified complication Rhabdomyolysis due to COVID-19 U07.1; M62.82 Time Spent (min) 60
[2020-11-11 20:32] LABS: Partial Thromboplastin Time 69.2 SECONDS (23.9-36.7)
[2020-11-11 22:37] LABS: Glucose Point of Care 95 mg/dL (70-110)
[2020-11-12] VITALS (35 sets, daily range): BP systolic 98–146; BP diastolic 49–89; PULSE 66–90; RESP 15–28; TEMP 36.4–37.2; O2SAT 82–95
[2020-11-12] MEDS: heparin drip 25,000 UNIT/500 ML PREMIX 38 UNIT IV (03:03)
[2020-11-12 03:32] LABS: Partial Thromboplastin Time 182.6 SECONDS (23.9-36.7)
--- NOTE | 2020-11-12 04:48 | PC.NURSE ---
Addendum entered by Brandy Ridley RN 11/12/20 05:12: Critical PTT called to Dr. Webb per protocol, orders received, see critical lab note for details. Original Note: Shift Note Frequent safety and comfort rounds continue. Orders and/or nursing care completed as indicated. Patient monitored for response to intervention and treatment(s). Education provided included turns to removed pressure on coccyx, medication with side effects, fall and oxygen safety. Patient verbalized understanding of education. Patient started to sneeze and expressed seasonal allergies. Mcmillan at bedside were dying and fan was blowing onto the mcmillan, she gave me permission to remove the card with bow to dispose of mcmillan and save the glass vase. After disposal of dying mcmillan, washing face and cleaning nose with wet wash clothe, she became increasingly comfortable, less sneezing and oxygen levels returned within normal limits again. Will continue to monitor.
[2020-11-12] MEDS: dexamethasone 4 mg/mL INJ 6 MG IVP (05:25)
[2020-11-12] MEDS: famotidine 20 mg/2 mL INJ IVP ×2 (05:25→18:09)
[2020-11-12 06:29] LABS: Anion Gap 16.4 (5-19); Blood Urea Nitrogen 67 mg/dL (6-20); Calcium 8.6 mg/dL (8.5-10.5); Carbon Dioxide 29 mmol/L (22-29); Chloride 96 mmol/L (98-107); Glomerular Filtration Rate 11.4 mL/min (90-130); Glucose 93 mg/dL (65-115); Osmolality Calculated 303 mOsm/kg (285-295); Potassium 4.4 mmol/L (3.5-5.1); Sodium 137 mmol/L (136-145)
[2020-11-12 08:03] LABS: Partial Thromboplastin Time 94.6 SECONDS (23.9-36.7)
[2020-11-12 08:27] LABS: Glucose Point of Care 123 mg/dL (70-110)
[2020-11-12] MEDS: cefepime 1,000 MG in sodium chloride 0.9% (plus) 100 ML 100 MG IV (08:43)
[2020-11-12] MEDS: linezolid premix 600 MG/300 ML PREMIX 300 MG IV ×2 (08:44→20:56)
[2020-11-12] MEDS: acetaminophen 500 mg Tablet PO ×2 (08:45→20:56)
[2020-11-12] MEDS: sennosides-docusate Tablet 1 TAB PO (08:45)
[2020-11-12] MEDS: albuterol 8 gm MDI 2 PUFF INHALATION (09:42)
--- NOTE | 2020-11-12 09:54 | PC.NURSE ---
AM Assessment Hope catheter was removed per Dr. Clifford order. Assisted patient up to bedside commode using the walker and two nurse assist. Patient tolerated fair. She had a small bowel movement, but did not urinate at this time. Dr. Clifford instructed this nurse to contact Dr. Sharp once urine has cleared from blood to restart heparin drip. Her oxygen saturation destated in the 70s. Her oxygen sat is now at 91% on 40L high flow at 60%. Patient is now resting in bed on her cell phone.
[2020-11-12 11:31] LABS: Glucose Point of Care 152 mg/dL (70-110)
[2020-11-12 13:19] LABS: Basophils % 0.1 %; Eosinophils % 0.1 %; Hematocrit 36.2 % (37.0-47.0); Hemoglobin 11.9 g/dL (11.5-15.3); Lymphocytes # 0.7 10^3/uL (0.8-4.8); Lymphocytes % 3.3 %; Mean Corpuscular HGB Conc 32.9 g/dL (30.0-36.0); Mean Corpuscular Hemoglobin 30.5 pg (28.0-34.0); Mean Corpuscular Volume 92.8 fL (81-99); Mean Platelet Volume 10.4 fL (7.4-10.4); Monocytes # 0.6 10^3/uL (0.2-0.9); Monocytes % 2.9 %; Neutrophils # 19.32 10^3/uL (1.8-7.7); Neutrophils % 92.5 %; Nucleated Red Blood Cells % 0 %; Platelet Count 238 10^3/cmm (130-400); White Blood Count 20.9 10^3/uL (4.0-10.0)
[2020-11-12 13:58] LABS: Alanine Aminotransferase 20 U/L (0-33); Albumin Level 3.7 g/dL (3.5-5.2); Alkaline Phosphatase 75 IU/L (35-105); Anion Gap 17.9 (5-19); Aspartate Amino Transferase 45 U/L (0-32); Blood Urea Nitrogen 66 mg/dL (6-20); Carbon Dioxide 27 mmol/L (22-29); Chloride 95 mmol/L (98-107); Globulin 2.8 g/dL (1.3-4.6); Glomerular Filtration Rate 12.1 mL/min (90-130); Glucose 154 mg/dL (65-115); Magnesium 2.6 mg/dL (1.7-2.3); Osmolality Calculated 302 mOsm/kg (285-295); Potassium 4.9 mmol/L (3.5-5.1); Sodium 135 mmol/L (136-145); Total Bilirubin 0.6 mg/dL (0.15-1.2); Total Protein 6.5 g/dL (6.6-8.7)
--- NOTE | 2020-11-12 16:26 | PM.PN ---
Subjective Subjective: Interval history: Anshul reports she is feeling okay. Trying to move around more than she was yesterday. Able to urinate okay. Medications: Reviewed: Yes Vitals/I&O/Wt Last Vital Signs Temp 97.6 F 11/12/20 14:39 Pulse 88 11/12/20 14:56 Resp 18 11/12/20 14:39 BP 123/81 11/12/20 14:39 Pulse Ox 93 11/12/20 14:39 11/12/20 11/12/20 11/12/20 06:59 14:59 22:59 Intake Total 770.267 / 2114.434 480 / 480 400 / 880 Output Total 800 / 2601 400 / 400 Balance -29.733 / -486.566 80 / 80 400 / 480 Weight last 48 hrs Weight 113.942 kg Weight 115.666 kg Physical Exam Narrative: EXAM NARRATIVE: General exam mild respiratory distress with conversation, excellent urine output. FiO2 down to 60% Neck supple Cardiovascular regular rate and rhythm without murmur Lungs clear Abdomen is soft positive bowel sounds : Hope noted. Extremities no cyanosis clubbing or edema Urinary Catheter Management^: Hope: Cath Placed During This Visit: yes Reason for Continuing Indwelling Catheter: Accurate Measurement of Urinary Output in Critically Ill Patients Urinary Catheter Date of Insertion: 11/02/20 Urinary Catheter Time of Insertion: 08:45 Data : 11/12/20 13:02 11/12/20 13:02 Micro: Microbiology 11/07/20 10:56 Blood Culture - Final Blood NO GROWTH AFTER 5 DAYS 11/07/20 11:01 Blood Culture - Final Blood NO GROWTH AFTER 5 DAYS A&P Assessment and plan (1) Acute respiratory failure: Down to an FiO2 of 60% Continue dexamethasone She has completed her course of remdesivir She did receive Tocilizumab Continue empiric cefepime, linezolid MRSA PCR negative Pulmonary toilet Sputum demonstrated group C strep Status: Acute Qualifiers: Respiratory failure complication: hypoxia Qualified Code(s): J96.01 - Acute respiratory failure with hypoxia (2) Septic shock: Off pressors Continues on empiric antibiotic coverage with cefepime, linezolid. Status: Acute (3) TEETEE (acute kidney injury): Acute renal failure. ARB discontinued Renal function improving. Hold statin for now secondary to severity of renal failure Mild rhabdo was noted. CK was stable around 1999. Renal ultrasound demonstrated no obstruction No need for nephrology consultation currently unless urine output wanes/creatinine increasing Status: Acute (4) DVT (deep venous thrombosis): Heparin drip currently If renal function improves significantly could consider Lovenox in the future with transition to Eliquis Status: Acute Qualifiers: DVT location: lower extremity Affected thrombotic vein of extremity: tibial Chronicity: acute Laterality: right Qualified Code(s): I82.441 - Acute embolism and thrombosis of right tibial vein (5) Diabetes: Sliding scale insulin. 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 Likely induced from Covid. Statin was discontinued. Transfer out of ICU. Attestations Medical Necessity Statement*: Needs continued hospitalization for COVID-19 pneumonia with respiratory failure requiring high flow oxygen. 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
[2020-11-12 18:17] LABS: Glucose Point of Care 153 mg/dL (70-110)
[2020-11-12 20:13] LABS: Partial Thromboplastin Time 25.3 SECONDS (23.9-36.7)
[2020-11-12 21:25] LABS: Glucose Point of Care 125 mg/dL (70-110)
[2020-11-13] VITALS (13 sets, daily range): BP systolic 102–158; BP diastolic 48–100; PULSE 64–89; RESP 18–26; TEMP 36.4–37; O2SAT 87–98
[2020-11-13] MEDS: benzonatate 100 mg Capsule PO ×2 (01:44→08:33)
[2020-11-13 02:19] LABS: Basophils % 0.2 %; Eosinophils # 0.1 10^3/uL (0.0-0.8); Eosinophils % 0.8 %; Hematocrit 32.2 % (37.0-47.0); Hemoglobin 10.4 g/dL (11.5-15.3); Lymphocytes # 1.3 10^3/uL (0.8-4.8); Mean Corpuscular HGB Conc 32.3 g/dL (30.0-36.0); Mean Corpuscular Hemoglobin 30.2 pg (28.0-34.0); Mean Corpuscular Volume 93.6 fL (81-99); Mean Platelet Volume 10.1 fL (7.4-10.4); Monocytes % 7.7 %; Neutrophils # 10.23 10^3/uL (1.8-7.7); Neutrophils % 80.1 %; Nucleated Red Blood Cells % 0 %; Platelet Count 209 10^3/cmm (130-400); Red Blood Count 3.44 10^6/uL (4.1-5.3); Red Cell Distribution Width 11.9 % (12.1-15.1); White Blood Count 12.8 10^3/uL (4.0-10.0)
[2020-11-13 02:27] LABS: Partial Thromboplastin Time 26.4 SECONDS (23.9-36.7)
[2020-11-13 02:31] LABS: Alanine Aminotransferase 16 U/L (0-33); Albumin Level 3.4 g/dL (3.5-5.2); Alkaline Phosphatase 61 IU/L (35-105); Anion Gap 15.9 (5-19); Aspartate Amino Transferase 32 U/L (0-32); Blood Urea Nitrogen 60 mg/dL (6-20); Calcium 8.8 mg/dL (8.5-10.5); Carbon Dioxide 28 mmol/L (22-29); Chloride 98 mmol/L (98-107); Globulin 2.3 g/dL (1.3-4.6); Glomerular Filtration Rate 14.5 mL/min (90-130); Glucose 117 mg/dL (65-115); Osmolality Calculated 304 mOsm/kg (285-295); Potassium 3.9 mmol/L (3.5-5.1); Sodium 138 mmol/L (136-145); Total Bilirubin 0.5 mg/dL (0.15-1.2); Total Protein 5.7 g/dL (6.6-8.7)
[2020-11-13] MEDS: heparin 5,000 unit/mL INJ 1 mL IV (02:46)
[2020-11-13] MEDS: heparin drip 25,000 UNIT/500 ML PREMIX 94.8 UNIT IV (02:51)
[2020-11-13] MEDS: famotidine 20 mg/2 mL INJ IVP (05:19)
[2020-11-13] MEDS: dexamethasone 4 mg/mL INJ 6 MG IVP (05:19)
[2020-11-13 06:39] LABS: Glucose Point of Care 112 mg/dL (70-110)
[2020-11-13] MEDS: cefepime 1,000 MG in sodium chloride 0.9% (plus) 100 ML 100 MG IV (08:34)
[2020-11-13 09:37] LABS: Partial Thromboplastin Time 72.2 SECONDS (23.9-36.7)
[2020-11-13] MEDS: linezolid premix 600 MG/300 ML PREMIX 300 MG IV (09:48)
[2020-11-13 11:15] LABS: Glucose Point of Care 173 mg/dL (70-110)
--- NOTE | 2020-11-13 12:28 | PM.PN ---
Subjective Subjective: Interval history: Bridget reports she is doing okay, but winded with activity. Medications: Reviewed: Yes Vitals/I&O/Wt Last Vital Signs Temp 98.6 F 11/13/20 08:00 Pulse 89 11/13/20 12:15 Resp 20 H 11/13/20 12:15 BP 113/92 11/13/20 08:00 Pulse Ox 90 11/13/20 12:15 11/12/20 11/13/20 11/13/20 22:59 06:59 14:59 Intake Total 820 / 1300 100 / 1400 840 / 840 Output Total 250 / 650 1050 / 1050 Balance 820 / 900 -150 / 750 -210 / -210 Weight last 48 hrs Weight 117.299 kg Weight 113.942 kg Physical Exam Narrative: EXAM NARRATIVE: General exam mild respiratory distress with conversation. FiO2 still at 60%. Neck supple Cardiovascular regular rate and rhythm without murmur Lungs clear Abdomen is soft positive bowel sounds : Hope noted. Extremities no cyanosis clubbing or edema Urinary Catheter Management^: Hope: Cath Placed During This Visit: yes Reason for Continuing Indwelling Catheter: Accurate Measurement of Urinary Output in Critically Ill Patients Urinary Catheter Date of Insertion: 11/02/20 Urinary Catheter Time of Insertion: 08:45 Data : 11/13/20 02:10 11/13/20 02:10 Micro: Microbiology 11/07/20 10:56 Blood Culture - Final Blood NO GROWTH AFTER 5 DAYS 11/07/20 11:01 Blood Culture - Final Blood NO GROWTH AFTER 5 DAYS A&P Assessment and plan (1) Acute respiratory failure: Currently FiO2 at 60% She has completed 10 days of dexamethasone. This will be discontinued. She has completed her course of remdesivir She did receive Tocilizumab Currently on cefepime, linezolid. These were started on the sixth. Therefore she has had a 7-day IV course. Considering her significant improvement we will discontinue IV antibiotics at this time. MRSA PCR negative Pulmonary toilet Sputum demonstrated group C strep Status: Acute Qualifiers: Respiratory failure complication: hypoxia Qualified Code(s): J96.01 - Acute respiratory failure with hypoxia (2) Septic shock: Off pressors Continues on empiric antibiotic coverage with cefepime, linezolid. Status: Acute (3) TEETEE (acute kidney injury): Acute renal failure. ARB discontinued Renal function continues to improve Hold statin for now secondary to severity of renal failure Mild rhabdo was noted. CK was stable around 1999. Renal ultrasound demonstrated no obstruction No need for nephrology consultation currently unless urine output wanes/creatinine increasing Status: Acute (4) DVT (deep venous thrombosis): Heparin drip currently His renal function is improving significantly I will go ahead and transition to Eliquis Status: Acute Qualifiers: DVT location: lower extremity Affected thrombotic vein of extremity: tibial Chronicity: acute Laterality: right Qualified Code(s): I82.441 - Acute embolism and thrombosis of right tibial vein (5) Diabetes: Sliding scale insulin. 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 Likely induced from Covid. Statin was discontinued. Possible candidate for select for rehabilitation. Attestations Medical Necessity Statement*: Needs continued hospital stay for support for COVID-19 pneumonia with high flow oxygen Coding Level of Care Code Acute Vp Outcomes for [facility] Diagnoses Acute respiratory failure J96.01 Respiratory failure complication: hypoxia Septic shock A41.9; R65.21 TEETEE (acute kidney injury) N17.9 DVT (deep venous thrombosis) I82.441 DVT location: lower extremity Affected thrombotic vein of extremity: tibial Chronicity: acute Laterality: right Diabetes E11.69 Diabetes mellitus type: type 2 Diabetes mellitus [facility] insulin use: unspecified emt intermediate insulin use status Diabetes mellitus complication status: with other specified complication ARDS (adult respiratory distress syndrome) J80
[2020-11-13 17:07] LABS: Glucose Point of Care 122 mg/dL (70-110)
[2020-11-13] MEDS: famotidine 20 mg Tablet PO (17:56)
[2020-11-13] MEDS: albuterol 8 gm MDI 2 PUFF INHALATION (19:34)
[2020-11-13] MEDS: apixaban 5 mg Tablet PO (21:14)
[2020-11-13 21:31] LABS: Glucose Point of Care 116 mg/dL (70-110)
[2020-11-14] VITALS (13 sets, daily range): BP systolic 100–129; BP diastolic 48–73; PULSE 70–112; RESP 15–27; TEMP 36.2–36.8; O2SAT 90–100
[2020-11-14 06:33] LABS: Basophils % 0.1 %; Eosinophils # 0.3 10^3/uL (0.0-0.8); Eosinophils % 1.8 %; Hematocrit 32.3 % (37.0-47.0); Hemoglobin 10.4 g/dL (11.5-15.3); Lymphocytes # 2.5 10^3/uL (0.8-4.8); Lymphocytes % 17.2 %; Mean Corpuscular HGB Conc 32.2 g/dL (30.0-36.0); Mean Corpuscular Hemoglobin 30.1 pg (28.0-34.0); Mean Corpuscular Volume 93.6 fl (81-99); Mean Platelet Volume 10.4 fL (7.4-10.4); Monocytes # 1.4 10^3/uL (0.2-0.9); Monocytes % 9.6 %; Neutrophils # 10.04 10^3/uL (1.8-7.7); Neutrophils % 70.5 %; Nucleated Red Blood Cells % 0 %; Platelet Count 265 10^3/cmm (130-400); Red Blood Count 3.45 10^6/uL (4.1-5.3); Red Cell Distribution Width 12.3 % (12.1-15.1); White Blood Count 14.3 10^3/uL (4.0-10.0)
[2020-11-14 06:46] LABS: Alanine Aminotransferase 17 U/L (0-33); Albumin Level 3.6 g/dL (3.5-5.2); Alkaline Phosphatase 60 IU/L (35-105); Anion Gap 14.5 (5-19); Aspartate Amino Transferase 30 U/L (0-32); Blood Urea Nitrogen 61 mg/dL (6-20); Calcium 9.2 mg/dL (8.5-10.5); Carbon Dioxide 28 mmol/L (22-29); Chloride 101 mmol/L (98-107); Globulin 2.5 g/dL (1.3-4.6); Glucose 125 mg/dL (65-115); Osmolality Calculated 307 mOsm/kg (285-295); Potassium 4.5 mmol/L (3.5-5.1); Sodium 139 mmol/L (136-145); Total Bilirubin 0.5 mg/dL (0.15-1.2); Total Protein 6.1 g/dL (6.6-8.7)
[2020-11-14 06:56] LABS: Glucose Point of Care 110 mg/dL (70-110)
[2020-11-14] MEDS: albuterol 8 gm MDI 2 PUFF INHALATION ×2 (09:05→20:12)
[2020-11-14] MEDS: famotidine 20 mg Tablet PO ×2 (09:53→19:28)
[2020-11-14] MEDS: apixaban 5 mg Tablet PO ×2 (09:53→21:00)
[2020-11-14] MEDS: sennosides-docusate Tablet 1 TAB PO (09:53)
--- NOTE | 2020-11-14 11:19 | P.PN_ITS ---
Subjective Subjective: Interval history: Patient was seen this morning, physical therapy staff at bed, try to get her up to the side of the bed, she does complain of oral candidiasis, beyond that she tells me that her weakness is improving, no fevers overnight, has a cough, shortness of breath with exertion, is on high flow Vitals/I&O/Wt Last Vital Signs Temp 98.1 F 11/14/20 08:00 Pulse 70 11/14/20 09:07 Resp 22 H 11/14/20 09:07 BP 128/65 11/14/20 08:00 Pulse Ox 92 11/14/20 09:07 11/13/20 11/14/20 11/14/20 22:59 06:59 14:59 Intake Total 240 / 1500 100 / 1600 450 / 450 Output Total 600 / 1650 450 / 2100 Balance -360 / -150 -350 / -500 450 / 450 Weight last 48 hrs Weight 116.891 kg Weight 117.299 kg Physical Exam Const: COMMON NORMALS: no acute distress and patient oriented x3 Resp: COMMON NORMALS: normal respiratory effort, No retractions, No use of accessory muscles and clear to auscultation bilaterally AUSCULTATION: clear to auscultation bilaterally Cardio: COMMON NORMALS: regular rate, regular rhythm, S1 normal heart sound present and S2 normal heart sound present RATE: regular rate RHYTHM: regular rhythm HEART SOUNDS: S1 normal heart sound present and S2 normal heart sound present GI: COMMON NORMALS: Normal to inspection, nondistended, normoactive bowel sounds present, Soft to palpation and non-tender PALPATION: Yes Soft to palpation Extremity: COMMON NORMALS: no pedal edema Neuro: COMMON NORMALS: patient oriented x3 Psych: COMMON NORMALS: mental status grossly normal Urinary Catheter Management^: Hope: Cath Placed During This Visit: yes, but has since been removed by the nurse Reason for Continuing Indwelling Catheter: Decision to DC Catheter Urinary Catheter Date of Insertion: 11/02/20 Urinary Catheter Time of Insertion: 08:45 Date Urinary Catheter Removed: 11/12/20 Time Urinary Catheter Discontinued: 16:25 Data : 11/14/20 04:20 11/14/20 04:20 A&P Assessment and plan (1) Acute respiratory failure: Currently FiO2 at 60% She has completed 10 days of dexamethasone. This will be discontinued. She has completed her course of remdesivir She did receive Tocilizumab Completed 7-day course of cefepime, linezolid MRSA PCR negative Pulmonary toilet Sputum demonstrated group C strep Plan for today, monitor respiratory status, continue physical therapy, start oral nystatin Status: Acute Qualifiers: Respiratory failure complication: hypoxia Qualified Code(s): J96.01 - A cute respiratory failure with hypoxia (2) Septic shock: Off pressors Status: Acute (3) TEETEE (acute kidney injury): Acute renal failure, creatinine 2.9, urine output 1050 ARB discontinued Renal function continues to improve Hold statin for now secondary to severity of renal failure Mild rhabdo was noted. CK was stable around 1999. Renal ultrasound demonstrated no obstruction No need for nephrology consultation currently unless urine output wanes/creatinine increasing Status: Acute (4) DVT (deep venous thrombosis): Currently on Eliquis, monitor for signs of bleeding Status: Acute Qualifiers: DVT location: lower extremity Affected thrombotic vein of extremity: tibial Chronicity: acute Laterality: right Qualified Code(s): I82.441 - Acute embolism and thrombosis of right tibial vein (5) Diabetes: Sliding scale insulin. 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 Likely induced from Covid. Statin was discontinued. Possible candidate for select for rehabilitation. Attestations Medical Necessity Statement*: Patient requires hospitalization for acute respiratory failure secondary COVID-19 Coding Level of Care Code Acute Criminal Justice Department Chair for [facility] Diagnoses Acute respiratory failure J96.01 Respiratory failure complication: hypoxia Septic shock A41.9; R65.21 TEETEE (acute kidney injury) N17.9 DVT (deep venous thrombosis) I82.441 DVT location: lower extremity Affected thrombotic vein of extremity: tibial Chronicity: acute Laterality: right Diabetes E11.69 Diabetes mellitus type: type 2 Diabetes mellitus penitentiary insulin use: unspecified penitentiary insulin use status Diabetes mellitus complication status: with other specified complication ARDS (adult respiratory distress syndrome) J80
[2020-11-14 11:32] LABS: Glucose Point of Care 131 mg/dL (70-110)
[2020-11-14] MEDS: nystatin 100,000 unit/mL UDC 5 mL 100000 UNIT PO ×3 (14:27→21:00)
[2020-11-14 17:41] LABS: Glucose Point of Care 91 mg/dL (70-110)
[2020-11-14 21:44] LABS: Glucose Point of Care 111 mg/dL (70-110)
[2020-11-15] VITALS (13 sets, daily range): BP systolic 118–127; BP diastolic 62–92; PULSE 78–114; RESP 16–21; TEMP 36.4–37.4; O2SAT 90–97
[2020-11-15 06:29] LABS: Basophils % 0.3 %; Eosinophils # 0.3 10^3/uL (0.0-0.8); Eosinophils % 2.6 %; Hematocrit 31.2 % (37.0-47.0); Hemoglobin 9.9 g/dL (11.5-15.3); Lymphocytes # 1.7 10^3/uL (0.8-4.8); Lymphocytes % 14.7 %; Mean Corpuscular HGB Conc 31.7 g/dL (30.0-36.0); Mean Corpuscular Volume 94.5 fl (81-99); Mean Platelet Volume 10.1 fL (7.4-10.4); Monocytes # 1.3 10^3/uL (0.2-0.9); Monocytes % 11.2 %; Neutrophils # 8.05 10^3/uL (1.8-7.7); Neutrophils % 70.5 %; Nucleated Red Blood Cells % 0 %; Platelet Count 217 10^3/cmm (130-400); Red Cell Distribution Width 12.4 % (12.1-15.1); White Blood Count 11.4 10^3/uL (4.0-10.0)
[2020-11-15 06:46] LABS: Glucose Point of Care 129 mg/dL (70-110)
[2020-11-15 07:18] LABS: Alanine Aminotransferase 18 U/L (0-33); Albumin Level 3.5 g/dL (3.5-5.2); Alkaline Phosphatase 58 IU/L (35-105); Anion Gap 13.6 (5-19); Aspartate Amino Transferase 25 U/L (0-32); Blood Urea Nitrogen 63 mg/dL (6-20); Calcium 9.5 mg/dL (8.5-10.5); Carbon Dioxide 27 mmol/L (22-29); Chloride 104 mmol/L (98-107); Glomerular Filtration Rate 27.6 mL/min (90-130); Glucose 110 mg/dL (65-115); Osmolality Calculated 309 mOsm/kg (285-295); Potassium 4.6 mmol/L (3.5-5.1); Sodium 140 mmol/L (136-145); Total Bilirubin 0.5 mg/dL (0.15-1.2); Total Protein 5.5 g/dL (6.6-8.7)
[2020-11-15] MEDS: albuterol 8 gm MDI 2 PUFF INHALATION ×4 (09:02→19:38)
[2020-11-15] MEDS: nystatin 100,000 unit/mL UDC 5 mL 100000 UNIT PO ×4 (10:50→21:21)
[2020-11-15] MEDS: benzonatate 100 mg Capsule PO ×2 (10:51→17:34)
[2020-11-15] MEDS: apixaban 5 mg Tablet PO ×2 (10:51→21:22)
[2020-11-15] MEDS: sennosides-docusate Tablet 1 TAB PO (10:51)
[2020-11-15] MEDS: famotidine 20 mg Tablet PO (10:51)
[2020-11-15 13:17] LABS: Glucose Point of Care 159 mg/dL (70-110)
--- NOTE | 2020-11-15 13:41 | P.PN_ITS ---
Subjective Subjective: Interval history: Patient was seen this morning, she sitting up in a chair, she just got up, is a bit short of breath, she tells me that this happens when she gets up and uses the bathroom, no fevers overnight, has a mild cough Vitals/I&O/Wt Last Vital Signs Temp 98.9 F 11/15/20 11:34 Pulse 110 H 11/15/20 12:11 Resp 20 H 11/15/20 12:11 BP 120/90 11/15/20 11:34 Pulse Ox 97 11/15/20 12:11 11/14/20 11/15/20 11/15/20 22:59 06:59 14:59 Output Total 50 / 550 300 / 850 Balance -50 / 100 -300 / -200 Weight last 48 hrs Weight 117.526 kg Weight 116.891 kg Physical Exam Const: COMMON NORMALS: no acute distress GENERAL APPEARANCE: cooperative ORIENTATION/CONSCIOUSNESS: Yes awake, Yes oriented to person, Yes oriented to place and Yes oriented to time Resp: COMMON NORMALS: normal respiratory effort, No retractions, No use of accessory muscles and clear to auscultation bilaterally AUSCULTATION: clear to auscultation bilaterally Cardio: COMMON NORMALS: regular rate, regular rhythm, S1 normal heart sound present and S2 normal heart sound present RATE: regular rate RHYTHM: reg ular rhythm HEART SOUNDS: S1 normal heart sound present and S2 normal heart sound present GI: COMMON NORMALS: Normal to inspection, nondistended, normoactive bowel sounds present, Soft to palpation and non-tender PALPATION: Yes Soft to palpation Extremity: COMMON NORMALS: no pedal edema Neuro: SENSORIUM/ORIENTATION: Yes oriented to person, Yes oriented to place and Yes oriented to time Urinary Catheter Management^: Hope: Cath Placed During This Visit: yes, but has since been removed by the nurse Reason for Continuing Indwelling Catheter: Decision to DC Catheter Urinary Catheter Date of Insertion: 11/02/20 Urinary Catheter Time of Insertion: 08:45 Date Urinary Catheter Removed: 11/12/20 Time Urinary Catheter Discontinued: 16:25 Data : 11/15/20 05:39 11/15/20 05:39 A&P Assessment and plan (1) Acute respiratory failure: Currently FiO2 at 40 L, 45% She has completed 10 days of dexamethasone. She has completed her course of remdesivir She did receive Tocilizumab Completed 7-day course of cefepime, linezolid MRSA PCR negative Pulmonary toilet Sputum demonstrated group C strep Plan for today, monitor respiratory status, continue physical therapy, on oral nystatin, monitor hemoglobin Status: Acute Qualifiers: Respiratory failure complication: hypoxia Qualified Code(s): J96.01 - Acute respiratory failure with hypoxia (2) Septic shock: Off pressors Status: Acute (3) TEETEE (acute kidney injury): Acute renal failure, creatinine 2.0 ARB discontinued Renal function continues to improve Hold statin for now secondary to severity of renal failure Mild rhabdo was noted. CK was stable around 1999. Renal ultrasound demonstrated no obstruction No need for nephrology consultation currently unless urine output wanes/c reatinine increasing Status: Acute (4) DVT (deep venous thrombosis): Currently on Eliquis, monitor for signs of bleeding, hemoglobin down to 9.9 Status: Acute Qualifiers: DVT location: lower extremity Affected thrombotic vein of extremity: tibial Chronicity: acute Laterality: right Qualified Code(s): I82.441 - Acute embolism and thrombosis of right tibial vein (5) Diabetes: Sliding scale insulin. Cautious secondary to renal failure Status: Acute Qualifiers: Diabetes mellitus type: type 2 Diabetes mellitus longterm insulin use: unspecified longterm insulin use status Diabetes mellitus complication status: with other specified complication Qualified Code(s): E11.69 - Type 2 diabetes mellitus with other specified complication (6) ARDS (adult respiratory distress syndrome): Extubated 11/09 Status: Acute Additional A&P Information Hemoglobin down to 9.9, is on Eliquis, no overt signs bleeding, no hemodynamic compromise, will Hemoccult stool, on Protonix Rhabdomyolysis. Likely induced from Covid. Statin was discontinued. Possible candidate for select for rehabilitation. Attestations Medical Necessity Statement*: Patient requires hospitalization for acute respiratory failure secondary to COVID-19 Coding Level of Care Code Acute Tester Wafer Substrate for Rowena Recinos Diagnoses Acute respiratory failure J96.01 Respiratory failure complication: hypoxia Septic shock A41.9; R65.21 TEETEE (acute kidney injury) N17.9 DVT (deep venous thrombosis) I82.441 DVT location: lower extremity Affected thrombotic vein of extremity: tibial Chronicity: acute Laterality: right Diabetes E11.69 Diabetes mellitus type: type 2 Diabetes mellitus intermediate project manager insulin use: unspecified longterm insulin use status Diabetes mellitus complication status: with other specified complication ARDS (adult respiratory distress syndrome) J80
[2020-11-15 17:31] LABS: Glucose Point of Care 110 mg/dL (70-110)
[2020-11-15] MEDS: pantoprazole DR 40 mg Tablet PO (17:35)
[2020-11-15 20:16] LABS: Glucose Point of Care 137 mg/dL (70-110)
[2020-11-16] VITALS (8 sets, daily range): BP systolic 104–137; BP diastolic 67–73; PULSE 84–111; RESP 18–32; TEMP 36.7–36.9; O2SAT 90–94
[2020-11-16 07:08] LABS: Basophils % 0.3 %; Eosinophils # 0.3 10^3/uL (0.0-0.8); Eosinophils % 2.9 %; Hematocrit 30.8 % (37.0-47.0); Hemoglobin 9.5 g/dL (11.5-15.3); Lymphocytes # 1.6 10^3/uL (0.8-4.8); Lymphocytes % 14.8 %; Mean Corpuscular HGB Conc 30.8 g/dL (30.0-36.0); Mean Corpuscular Hemoglobin 29.9 pg (28.0-34.0); Mean Corpuscular Volume 96.9 fl (81-99); Mean Platelet Volume 9.8 fL (7.4-10.4); Monocytes # 1.2 10^3/uL (0.2-0.9); Neutrophils # 7.77 10^3/uL (1.8-7.7); Neutrophils % 70.3 %; Nucleated Red Blood Cells % 0 %; Platelet Count 205 10^3/cmm (130-400); Red Blood Count 3.18 10^6/uL (4.1-5.3); Red Cell Distribution Width 12.5 % (12.1-15.1); White Blood Count 11.1 10^3/uL (4.0-10.0)
[2020-11-16 07:15] LABS: Glucose Point of Care 171 mg/dL (70-110)
[2020-11-16 07:42] LABS: Alanine Aminotransferase 17 U/L (0-33); Albumin Level 3.4 g/dL (3.5-5.2); Alkaline Phosphatase 85 IU/L (35-105); Anion Gap 12.4 (5-19); Aspartate Amino Transferase 27 U/L (0-32); Blood Urea Nitrogen 53 mg/dL (6-20); Calcium 9.2 mg/dL (8.5-10.5); Carbon Dioxide 27 mmol/L (22-29); Chloride 107 mmol/L (98-107); Globulin 2.2 g/dL (1.3-4.6); Glomerular Filtration Rate 35.7 mL/min (90-130); Glucose 125 mg/dL (65-115); Osmolality Calculated 310 mOsm/kg (285-295); Potassium 4.4 mmol/L (3.5-5.1); Sodium 142 mmol/L (136-145); Total Bilirubin 0.5 mg/dL (0.15-1.2); Total Protein 5.6 g/dL (6.6-8.7)
--- NOTE | 2020-11-16 09:02 | PC.CHAP ---
Pastoral Care Encounter/Spiritual Assessment Type of Contact [] Declined director report visit [] Patient/Family/Request visit [] Outpatient visit [] Follow-up visit [] Physician referral [] Code/Alert [x] Routine visit [] Staff referral [] Actively dying [] Patient sleeping [] Family support [] [] Out of room [] Palliative care [] [] Receiving care in room [] Pre-surgical visit [] Trauma [] Long length of stay [] ICU visit [x] Other: setting up in chair 2a Relational/Emotional Strength [] Patient feels connected with others/family/visitors/staff [] Distress [] Loneliness/isolation [] Abandonment Spirituality of Patient [] Person of Keysha [] Attends Buddhism of their Keysha [] Believes in Prayer [] Reads Bible or Zoroastrianism materials [] There are Spiritual issues to be addressed Edge Trimmer Mechanic Interventions [x] Prayer [] Active listening [] Non-anxious presence [] Spiritual/emotional support [] Crisis/trauma care [] Spiritual counseling [] Bereavement support [] Provided bereavement packet [] Provided Bible/devotional materials [] Provided toy/stuffed animal, coloring book to patient or family member [] Provided Communion [] Anointing/[place] [] Salvation [x] Completed spiritual assessment [] Other: Impact on Illness or Injury [] Angry [] Fearful [] Anxious [] Often cries [] Exhaustion [] Unable to work [] Unable to attend zoroastrian [] Unable to walk/stand [] Unable to read [] Unable to drive [] Unable to eat/drink [] Unable to sleep [] Unable to be with family [] Patient intubated [] Other: Summary Time spent with patient
[2020-11-16] MEDS: apixaban 5 mg Tablet PO ×2 (09:15→22:52)
[2020-11-16] MEDS: pantoprazole DR 40 mg Tablet PO ×2 (09:16→18:15)
[2020-11-16] MEDS: nystatin 100,000 unit/mL UDC 5 mL 100000 UNIT PO ×4 (09:16→22:52)
--- NOTE | 2020-11-16 10:56 | P.PN_ITS ---
Subjective Subjective: Interval history: Bridget reports she feels a little bit better. Nursing has been able to reduce her oxygen. Medications: Reviewed: Yes Vitals/I&O/Wt Last Vital Signs Temp 98.3 F 11/16/20 07:25 Pulse 101 H 11/16/20 07:25 Resp 18 11/16/20 07:25 BP 137/72 11/16/20 07:25 Pulse Ox 90 11/16/20 07:25 11/15/20 11/16/20 11/16/20 22:59 06:59 14:59 Intake Total 240 / 240 240 / 240 Balance 240 / 240 240 / 240 Weight last 48 hrs Weight 117.208 kg Weight 117.526 kg Physical Exam Narrative: EXAM NARRATIVE: General exam mild respiratory distress with co nversation. Now which is 7 L. Neck supple Cardiovascular regular rate and rhythm without murmur Lungs clear Abdomen is soft positive bowel sounds Extremities no cyanosis clubbing or edema Urinary Catheter Management^: Hope: Cath Placed During This Visit: yes, but has since been removed by the nurse Reason for Continuing Indwelling Catheter: Decision to DC Catheter Urinary Catheter Date of Insertion: 11/02/20 Urinary Catheter Time of Insertion: 08:45 Date Urinary Catheter Removed: 11/12/20 Time Urinary Catheter Discontinued: 16:25 Data : 11/16/20 06:10 11/16/20 06:10 Micro: Microbiology 11/16/20 06:30 Occult Blood (FIT) - Final Stool Routine Collection A&P Assessment and plan (1) Acute respiratory failure: Oxygen has weaned significantly She has completed 10 days of dexamethasone. She has completed her course of remdesivir She did receive Tocilizumab Completed 7-day course of cefepime, linezolid MRSA PCR negative Pulmonary toilet Sputum demonstrated group C strep Discontinue central line Plan for today, monitor respiratory status, continue physical therapy, on oral nystatin, monitor hemoglobin Status: Acute Qualifiers: Respiratory failure complication: hypoxia Qualified Code(s): J96.01 - Acute respiratory failure with hypoxia (2) Septic shock: Off pressors Status: Acute (3) TEETEE (acute kidney injury): Renal failure continues to improve ARB discontinued Hold statin for now secondary to severity of renal failure Mild rhabdo was noted. CK was stable around 1999. Renal ultrasound demonstrated no obstruction No need for nephrology consultation currently unless urine output wanes/creatinine increasing Status: Acute (4) DVT (deep venous thrombosis): Currently on Eliquis, monitor for signs of bleeding, hemoglobin down to 9.9 Status: Acute Qualifiers: DVT location: lower extremity Affected thrombotic vein of extremity: tibial Chronicity: acute Laterality: right Qualified Code(s): I82.441 - Acute embolism and thrombosis of right tibial vein (5) Diabetes: Sliding scale insulin. 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 Likely induced from Covid. Statin was discontinued. May be able to go home with home health in the next several days No need for laboratory tomorrow Attestations Medical Necessity Statement*: Needs continued hospitalization for supportive care secondary to COVID-19 pneumonia requiring high levels of oxygen. Coding Level of Care Code Acute Restaurant Team Member for [facility] Diagnoses Acute respiratory failure J96.01 Respiratory failure complication: hypoxia Septic shock A41.9; R65.21 TEETEE (acute kidney injury) N17.9 DVT (deep venous thrombosis) I82.441 DVT location: lower extremity Affected thrombotic vein of extremity: tibial Chronicity: acute Laterality: right Diabetes E11.69 Diabetes mellitus type: type 2 Diabetes mellitus fpc insulin use: unspecified fpc insulin use status Diabetes mellitus complication status: with other specified complication ARDS (adult respiratory distress syndrome) J80
[2020-11-16 11:44] LABS: Glucose Point of Care 136 mg/dL (70-110)
[2020-11-16 17:24] LABS: Glucose Point of Care 111 mg/dL (70-110)
--- NOTE | 2020-11-16 18:05 | PC.RESP ---
RT Shift Note Frequent safety and respiratory rounds continue. Orders completed as indicated. Patient monitored pre and post treatments throughout shift. Patient tolerated treatments appropriately. Condition did not change. Patient and/or product sales representative educated on respiratory treatment and medications. Patient and/or product sales representative verbalized understanding. Will continue to monitor patient progress.
[2020-11-16] MEDS: albuterol 8 gm MDI 2 PUFF INHALATION (20:30)
[2020-11-16 21:17] LABS: Glucose Point of Care 133 mg/dL (70-110)
--- NOTE | 2020-11-16 22:39 | PC.RESP ---
RT Shift Note Frequent safety and respiratory rounds continue. Orders completed as indicated. Patient monitored pre and post treatments throughout shift. Patient [Did.] tolerate treatments appropriately. Condition .DidNotChange]. Patient and/or sales representative leather goods educated on respiratory treatment and medications. Patient and/or sales representative leather goods [ResponseToTeaching]. Will continue to monitor patient progress.
[2020-11-16] MEDS: fluticasone nasal spray 16gm Btl 1 SPRAY NASAL (22:51)
[2020-11-16] MEDS: benzonatate 100 mg Capsule PO (22:52)
[2020-11-17] VITALS (14 sets, daily range): BP systolic 105–130; BP diastolic 60–97; PULSE 86–116; RESP 16–33; TEMP 36.2–37.2; O2SAT 84–97
[2020-11-17] MEDS: albuterol 8 gm MDI 2 PUFF INHALATION (03:30)
[2020-11-17 07:52] LABS: Glucose Point of Care 121 mg/dL (70-110)
--- NOTE | 2020-11-17 08:06 | XRR_ITS ---
PROCEDURE INFORMATION: Exam: XR Chest Exam date and time: 11/17/2020 8:06 AM Age: 40 years old Clinical indication: Condition or disease; Lung condition and disease; Respiratory distress; Additional info: Follow up resp failure TECHNIQUE: Imaging protocol: XR of the chest. Views: 1 view. Total images: 1 COMPARISON: CR (CHEST, ) 11/08/2020 9:31 AM FINDINGS: Tubes, catheters and devices: Interval removal of tubes and catheters. Lungs: Bilateral pulmonary opacities are again noted and appear unchanged. Pleural spaces: Unremarkable. No pleural effusion. No pneumothorax. Heart/Mediastinum: Low lung volumes are present, accentuating cardiac size and pulmonary markings. Bones/joints: Osseous structures are unchanged from the prior exam. XR/XR chest 1V portable [id number] IMPRESSION: 1. Low lung volumes are present, accentuating cardiac size and pulmonary markings. 2. Bilateral pulmonary opacities are again noted and appear unchanged.
[2020-11-17] MEDS: sennosides-docusate Tablet 1 TAB PO (09:02)
[2020-11-17] MEDS: nystatin 100,000 unit/mL UDC 5 mL 100000 UNIT PO ×4 (09:02→20:18)
[2020-11-17] MEDS: apixaban 5 mg Tablet PO ×2 (09:02→20:18)
[2020-11-17] MEDS: pantoprazole DR 40 mg Tablet PO ×2 (09:02→17:44)
[2020-11-17] MEDS: fluticasone nasal spray 16gm Btl 1 SPRAY NASAL ×2 (09:04→17:46)
--- NOTE | 2020-11-17 09:24 | PC.CHAP ---
Pastoral Care Encounter/Spiritual Assessment Type of Contact [] Declined intellectual property counsel visit [] Patient/Family/Request visit [] Outpatient visit [] Follow-up visit [] Physician referral [] Code/Alert [x] Routine visit [] Staff referral [] Actively dying [] Patient sleeping [] Family support [] [] Out of room [] Palliative care [] [] Receiving care in room [] Pre-surgical visit [] Trauma [] Long length of stay [] ICU visit [x] Other: 2a Relational/Emotional Strength [] Patient feels connected with others/family/visitors/staff [] Distress [] Loneliness/isolation [] Abandonment Spirituality of Patient [] Person of Keysha [] Attends Rastafarian of their Keysha [] Believes in Prayer [] Reads Bible or Rastafarian materials [] There are Spiritual issues to be addressed Wrapper Off Interventions [x] Prayer [] Active listening [] Non-anxious presence [] Spiritual/emotional support [] Crisis/trauma care [] Spiritual counseling [] Bereavement support [] Provided bereavement packet [] Provided Bible/devotional materials [] Provided toy/stuffed animal, coloring book to patient or family member [] Provided Communion [] Anointing/[place] [] Salvation [x] Completed spiritual assessment [] Other: Impact on Illness or Injury [] Angry [] Fearful [] Anxious [] Often cries [] Exhaustion [] Unable to work [] Unable to attend yazidism [] Unable to walk/stand [] Unable to read [] Unable to drive [] Unable to eat/drink [] Unable to sleep [] Unable to be with family [] Patient intubated [] Other: Summary Time spent with patient
--- NOTE | 2020-11-17 10:37 | P.PN_ITS ---
Subjective Subjective: Interval history: Bridget had a significant increase in oxygen requirement last night. She was bumped to 11 L from 7. She reports she does not feel any worse, and is wondering if the oximeter was picking up appropriately. Medications: Reviewed: Yes Vitals/I&O/Wt Last Vital Signs Temp 97.2 F L 11/17/20 08:00 Pulse 86 11/17/20 08:19 Resp 16 11/17/20 08:19 BP 105/62 11/17/20 08:00 Pulse Ox 90 11/17/20 08:19 11/16/20 11/17/20 11/17/20 22:59 06:59 14:59 Intake Total 240 / 720 240 / 240 Balance 240 / 720 240 / 240 Weight last 48 hrs Weight 116.8 kg Weight 117.208 kg Physical Exam Narrative: EXAM NARRATIVE: General exam continued mild distress with conversation, currently on 11 L Neck supple Cardiovascular regular rate and rhythm without murmur Lungs clear Abdomen is soft positive bowel sounds Extremities no cyanosis clubbing or edema Urinary Catheter Management^: Hope: Cath Placed During This Visit: yes, but has since been removed by the nurse Reason for Continuing Indwelling Catheter: Decision to DC Catheter Urinary Catheter Date of Insertion: 11/02/20 Urinary Catheter Time of Insertion: 08:45 Date Urinary Catheter Removed: 11/12/20 Time Urinary Catheter Discontinued: 16:25 Data : 11/16/20 06:10 11/16/20 06:10 Micro: Microbiology 11/16/20 06:30 Occult Blood (FIT) - Final Stool Routine Collection A&P Assessment and plan (1) Acute respiratory failure: Back to 11 L of oxygen She has completed 10 days of dexamethasone. She has completed her course of remdesivir She did receive Tocilizumab Completed 7-day course of cefepime, linezolid MRSA PCR negative Pulmonary toilet Sputum demonstrated group C strep Central line discontinued November 16 Secondary to worsening repeat x-ray, lab work, procalcitonin. Try to wean oxygen. X-ray ribs reviewed demonstrating no significant change. Awaiting laboratory. Continue physical therapy Status: Acute Qualifiers: Respiratory failure complication: hypoxia Qualified Code(s): J96.01 - Acute respiratory failure with hypoxia (2) Septic shock: Off pressors Status: Acute (3) TEETEE (acute kidney injury): Renal failure continues to improve from last lab. Recheck today secondary to worsening. ARB discontinued Hold statin for now secondary to severity of renal failure Mild rhabdo was noted. CK was stable around 1999. Renal ultrasound demonstrated no obstruction Status: Acute (4) DVT (deep venous thrombosis): Currently on Eliquis Status: Acute Qualifiers: DVT location: lower extremity Affected thrombotic vein of extremity: tibial Chronicity: acute Laterality: right Qualified Code(s): I82.441 - Acute embolism and thrombosis of right tibial vein (5) Diabetes: Sliding scale insulin. Cautious secondary to renal failure Status: Acute Qualifiers: Diabetes mellitus type: type 2 Diabetes mellitus group home insulin use: unspecified technician terminal and repeater insulin use status Diabetes mellitus complication status: with other specified complication Qualified Code(s): E11.69 - Type 2 diabetes mellitus with other specified complication (6) ARDS (adult respiratory distress syndrome): Extubated 11/09 Status: Acute Additional A&P Information Hemoglobin down to 9.9 at last check, is on Eliquis, no overt signs bleeding, continue Protonix. Repeat CBC today Rhabdomyolysis. Likely induced from Covid. Statin was discontinued. May be able to go home with home health in the next several days Attestations Medical Necessity Statement*: Specialization secondary to severe COVID-19 pneumonia requiring high amounts of oxygen. Coding Level of Care Code Acute Rumper for reyna Recinos Diagnoses Acute respiratory failure J96.01 Respiratory failure complication: hypoxia Septic shock A41.9; R65.21 TEETEE (acute kidney injury) N17.9 DVT (deep venous thrombosis) I82.441 DVT location: lower extremity Affected thrombotic vein of extremity: tibial Chronicity: acute Laterality: right Diabetes E11.69 Diabetes mellitus type: type 2 Diabetes mellitus technician terminal and repeater insulin use: unspecified technician terminal and repeater insulin use status Diabetes mellitus complication status: with other specified complication ARDS (adult respiratory distress syndrome) J80
[2020-11-17 10:58] LABS: Glucose Point of Care 123 mg/dL (70-110)
[2020-11-17 15:05] LABS: Alanine Aminotransferase 19 U/L (0-33); Albumin Level 3.9 g/dL (3.5-5.2); Alkaline Phosphatase 81 IU/L (35-105); Anion Gap 14.2 (5-19); Aspartate Amino Transferase 30 U/L (0-32); Blood Urea Nitrogen 48 mg/dL (6-20); Calcium 9.7 mg/dL (8.5-10.5); Carbon Dioxide 27 mmol/L (22-29); Chloride 104 mmol/L (98-107); Globulin 2.4 g/dL (1.3-4.6); Glomerular Filtration Rate 49.8 mL/min (90-130); Glucose 124 mg/dL (65-115); Osmolality Calculated 306 mOsm/kg (285-295); Potassium 4.2 mmol/L (3.5-5.1); Sodium 141 mmol/L (136-145); Total Bilirubin 0.4 mg/dL (0.15-1.2); Total Protein 6.3 g/dL (6.6-8.7)
[2020-11-17 15:07] LABS: Basophils # 0.1 10^3/uL (0.0-0.1); Basophils % 0.6 %; Eosinophils # 0.5 10^3/uL (0.0-0.8); Eosinophils % 3.6 %; Hematocrit 33.1 % (37.0-47.0); Hemoglobin 10.6 g/dL (11.5-15.3); Lymphocytes # 1.7 10^3/uL (0.8-4.8); Lymphocytes % 13.3 %; Mean Corpuscular Hemoglobin 30.4 pg (28.0-34.0); Mean Corpuscular Volume 94.8 fl (81-99); Mean Platelet Volume 10.2 fL (7.4-10.4); Monocytes # 1.2 10^3/uL (0.2-0.9); Monocytes % 9.2 %; Neutrophils # 9.22 10^3/uL (1.8-7.7); Neutrophils % 72.6 %; Nucleated Red Blood Cells % 0 %; Platelet Count 227 10^3/cmm (130-400); Red Blood Count 3.49 10^6/uL (4.1-5.3); Red Cell Distribution Width 12.9 % (12.1-15.1); White Blood Count 12.7 10^3/uL (4.0-10.0)
[2020-11-17 15:12] LABS: Procalcitonin 0.06 ng/mL (0-0.5)
--- NOTE | 2020-11-17 16:53 | PC.NURSE ---
Shift Note Frequent safety and comfort rounds continue. Orders and/or nursing care completed as indicated. Patient monitored for response to intervention and treatment(s). Education provided includes IS and flutter valve use encouraged, deep breathing and resting on side while laying in bed, medications. Patient and/or employment representative verbalizes understanding. Will continue to monitor.
[2020-11-17 16:59] LABS: Glucose Point of Care 99 mg/dL (70-110)
--- NOTE | 2020-11-17 17:52 | PC.RESP ---
RT Shift Note Frequent safety and respiratory rounds continue. Orders completed as indicated. Patient monitored pre and post treatments throughout shift. Patient tolerated treatments appropriately. Condition did not change. Patient and/or labor service representative educated on respiratory treatment and medications. Patient and/or labor service representative verbalized understanding. Will continue to monitor patient progress.
[2020-11-17 20:57] LABS: Glucose Point of Care 135 mg/dL (70-110)
[2020-11-18] VITALS (10 sets, daily range): BP systolic 130–149; BP diastolic 72–85; PULSE 78–105; RESP 17–24; TEMP 36.3–36.9; O2SAT 91–100
[2020-11-18 05:36] LABS: Glucose Point of Care 122 mg/dL (70-110)
[2020-11-18 08:08] LABS: Glucose Point of Care 126 mg/dL (70-110)
[2020-11-18] MEDS: benzonatate 100 mg Capsule PO ×2 (09:45→19:33)
[2020-11-18] MEDS: apixaban 5 mg Tablet PO ×2 (09:45→21:28)
[2020-11-18] MEDS: pantoprazole DR 40 mg Tablet PO ×2 (09:45→17:12)
[2020-11-18] MEDS: nystatin 100,000 unit/mL UDC 5 mL 100000 UNIT PO ×4 (09:45→21:28)
[2020-11-18] MEDS: sennosides-docusate Tablet 1 TAB PO (09:45)
[2020-11-18] MEDS: fluticasone nasal spray 16gm Btl 1 SPRAY NASAL ×2 (09:46→17:12)
--- NOTE | 2020-11-18 10:11 | PM.PN ---
Subjective Subjective: Interval history: Bridget feels better today. She is excited about getting out of quarantine. Medications: Reviewed: Yes Vitals/I&O/Wt Last Vital Signs Temp 97.8 F 11/18/20 08:00 Pulse 86 11/18/20 08:00 Resp 18 11/18/20 08:00 BP 149/82 11/18/20 08:00 Pulse Ox 94 11/18/20 08:00 11/17/20 11/18/20 11/18/20 22:59 06:59 14:59 Intake Total 120 / 360 100 / 460 Balance 120 / 360 100 / 460 Weight last 48 hrs Weight 114.05 kg Weight 116.8 kg Physical Exam Narrative: EXAM NARRATIVE: General exam continued no distress. On 6 L oxygen. Neck supple Cardiovascular regular rate and rhythm without murmur Lungs clear Abdomen is soft positive bowel sounds Extremities no cyanosis clubbing or edema Urinary Catheter Management^: Hope: Cath Placed During This Visit: yes, but has since been removed by the nurse Reason for Continuing Indwelling Catheter: Decision to DC Catheter Urinary Catheter Date of Insertion: 11/02/20 Urinary Catheter Time of Insertion: 08:45 Date Urinary Catheter Removed: 11/12/20 Time Urinary Catheter Discontinued: 16:25 Data : 11/17/20 14:11 11/17/20 14:11 A&P Assessment and plan (1) Acute respiratory failure: Has weaned down to 6 L She has completed 10 days of dexamethasone. She has completed her course of remdesivir She did receive Tocilizumab Completed 7-day course of cefepime, linezolid MRSA PCR negative Pulmonary toilet Sputum demonstrated group C strep Central line discontinued November 16 Continue physical therapy. Will need to see if she is strong enough to be able to discharge in the next 1 to 2 days. Off isolation, transfer to [facility] Status: Acute Qualifiers: Respiratory failure complication: hypoxia Qualified Code(s): J96.01 - Acute respiratory failure with hypoxia (2) Septic shock: Off pressors Status: Acute (3) TEETEE (acute kidney injury): Renal failure continues to improve from last lab. Recheck today secondary to worsening. ARB discontinued Hold statin for now secondary to severity of renal failure Mild rhabdo was noted. CK was stable around 1999. Renal ultrasound demonstrated no obstruction Status: Acute (4) DVT (deep venous thrombosis): Currently on Eliquis Status: Acute Qualifiers: DVT location: lower extremity Affected thrombotic vein of extremity: tibial Chronicity: acute Laterality: right Qualified Code(s): I82.441 - Acute embolism and thrombosis of right tibial vein (5) Diabetes: Sliding scale insulin. Cautious secondary to renal failure Status: Acute Qualifiers: Diabetes mellitus type: type 2 Diabetes mellitus fpc insulin use: unspecified fpc insulin use status Diabetes mellitus complication status: with other specified complication Qualified Code(s): E11.69 - Type 2 diabetes mellitus with other specified complication (6) ARDS (adult respiratory distress syndrome): Extubated 11/09 Status: Acute Additional A&P Information Currently on Protonix, Eliquis Rhabdomyolysis. Likely induced from Covid. Statin was discontinued. Possible discharge 1 to 2 days Full code Eliquis for DVT prophylaxis Attestations Medical Necessity Statement*: Needs continued hospital stay for supportive care secondary to severe COVID-19 pneumonia requiring high levels of oxygen. Coding Level of Care Code Acute Questioned Documents Examiner for [facility] Diagnoses Acute respiratory failure J96.01 Respiratory failure complication: hypoxia Septic shock A41.9; R65.21 TEETEE (acute kidney injury) N17.9 DVT (deep venous thrombosis) I82.441 DVT location: lower extremity Affected thrombotic vein of extremity: tibial Chronicity: acute Laterality: right Diabetes E11.69 Diabetes mellitus type: type 2 Diabetes mellitus fpc insulin use: unspecified fpc insulin use status Diabetes mellitus complication status: with other specified complication ARDS (adult respiratory distress syndrome) J80
[2020-11-18 11:44] LABS: Glucose Point of Care 120 mg/dL (70-110)
[2020-11-18 17:00] LABS: Glucose Point of Care 108 mg/dL (70-110)
[2020-11-18 20:46] LABS: Glucose Point of Care 120 mg/dL (70-110)
[2020-11-19] VITALS (9 sets, daily range): BP systolic 121–137; BP diastolic 58–84; PULSE 68–108; RESP 16–22; TEMP 36.6–36.8; O2SAT 64–98
[2020-11-19 06:48] LABS: Glucose Point of Care 121 mg/dL (70-110)
[2020-11-19] MEDS: nystatin 100,000 unit/mL UDC 5 mL 100000 UNIT PO ×4 (08:02→21:24)
[2020-11-19] MEDS: sennosides-docusate Tablet 1 TAB PO (08:03)
[2020-11-19] MEDS: pantoprazole DR 40 mg Tablet PO ×2 (08:03→17:10)
[2020-11-19] MEDS: benzonatate 100 mg Capsule PO ×2 (08:03→16:23)
[2020-11-19] MEDS: montelukast sodium 10 mg Tablet PO (08:03)
[2020-11-19] MEDS: apixaban 5 mg Tablet PO ×2 (08:06→21:24)
[2020-11-19] MEDS: fluticasone nasal spray 16gm Btl 1 SPRAY NASAL ×2 (08:06→17:10)
[2020-11-19] MEDS: albuterol 8 gm MDI 2 PUFF INHALATION ×2 (08:22→11:39)
[2020-11-19 11:07] LABS: Glucose Point of Care 119 mg/dL (70-110)
--- NOTE | 2020-11-19 13:29 | PM.PN ---
Subjective Subjective: Interval history: Bridget reports she is doing okay. She is still significantly short of breath with exertion. Medications: Reviewed: Yes Vitals/I&O/Wt Last Vital Signs Temp 97.8 F 11/19/20 11:29 Pulse 78 11/19/20 11:42 Resp 18 11/19/20 11:42 BP 131/66 11/19/20 11:29 Pulse Ox 64 L 11/19/20 11:43 11/18/20 11/19/20 11/19/20 22:59 06:59 14:59 Intake Total 240 / 480 760 / 760 Output Total 250 / 250 Balance 240 / 480 -250 / 230 760 / 760 Weight last 48 hrs Weight 114.05 kg Physical Exam Narrative: EXAM NARRATIVE: General exam continued no distress. On 5 L oxygen. Neck supple Cardiovascular regular rate and rhythm without murmur Lungs clear Abdomen is soft positive bowel sounds Extremities no cyanosis clubbing or edema Urinary Catheter Management^: Hope: Cath Placed During This Visit: yes, but has since been removed by the nurse Reason for Continuing Indwelling Catheter: Decision to DC Catheter Urinary Catheter Date of Insertion: 11/02/20 Urinary Catheter Time of Insertion: 08:45 Date Urinary Catheter Removed: 11/12/20 Time Urinary Catheter Discontinued: 16:25 Data : 11/17/20 14:11 11/17/20 14:11 A&P Assessment and plan (1) Acute respiratory failure: Has weaned down to 5 L She has completed 10 days of dexamethasone. She has completed her course of remdesivir She did receive Tocilizumab Completed 7-day course of cefepime, linezolid MRSA PCR negative Pulmonary toilet Sputum demonstrated group C strep Central line discontinued November 16 Continue physical therapy. Likely discharge tomorrow if continues to improve. Secondary to her significant weakness, high risk of fall, severe shortness of breath with any exertion with desaturation she will need a walker when discharging home. Off isolation currently Status: Acute Qualifiers: Respiratory failure complication: hypoxia Qualified Code(s): J96.01 - Acute respiratory failure with hypoxia (2) Septic shock: Off pressors Status: Acute (3) TEETEE (acute kidney injury): Renal failure significantly improved at last check Hold statin for now secondary to severity of renal failure Mild rhabdo was noted. CK was stable around 1999. Renal ultrasound demonstrated no obstruction Status: Acute (4) DVT (deep venous thrombosis): Currently on Eliquis Status: Acute Qualifiers: DVT location: lower extremity Affected thrombotic vein of extremity: tibial Chronicity: acute Laterality: right Qualified Code(s): I82.441 - Acute embolism and thrombosis of right tibial vein (5) Diabetes: Sliding scale insulin. 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 Likely induced from Covid. Statin was discontinued. Possible discharge tomorrow Full code Eliquis for DVT prophylaxis Attestations Medical Necessity Statement*: Needs continued hospitalization secondary to severe COVID-19 pneumonia requiring significant amounts of oxygen. 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
[2020-11-19] MEDS: acetaminophen 500 mg Tablet PO ×2 (16:23→23:20)
[2020-11-19 16:49] LABS: Glucose Point of Care 124 mg/dL (70-110)
[2020-11-19 20:25] LABS: Glucose Point of Care 123 mg/dL (70-110)
[2020-11-20] VITALS (7 sets, daily range): BP systolic 124–147; BP diastolic 85–90; PULSE 88–103; RESP 17–28; TEMP 36.6–36.9; O2SAT 90–95
[2020-11-20 05:21] LABS: Basophils # 0.1 10^3/uL (0.0-0.1); Basophils % 0.5 %; Eosinophils # 0.7 10^3/uL (0.0-0.8); Eosinophils % 7.6 %; Hematocrit 31.5 % (37.0-47.0); Hemoglobin 9.9 g/dL (11.5-15.3); Lymphocytes # 1.9 10^3/uL (0.8-4.8); Lymphocytes % 19.3 %; Mean Corpuscular HGB Conc 31.4 g/dL (30.0-36.0); Mean Corpuscular Hemoglobin 30.7 pg (28.0-34.0); Mean Corpuscular Volume 97.5 fl (81-99); Mean Platelet Volume 10.1 fL (7.4-10.4); Monocytes % 10.5 %; Neutrophils # 6.01 10^3/uL (1.8-7.7); Neutrophils % 61.5 %; Nucleated Red Blood Cells % 0 %; Platelet Count 229 10^3/cmm (130-400); Red Blood Count 3.23 10^6/uL (4.1-5.3); Red Cell Distribution Width 13.8 % (12.1-15.1); White Blood Count 9.8 10^3/uL (4.0-10.0)
[2020-11-20 05:31] LABS: Alanine Aminotransferase 18 U/L (0-33); Albumin Level 3.5 g/dL (3.5-5.2); Alkaline Phosphatase 55 IU/L (35-105); Anion Gap 11.4 (5-19); Aspartate Amino Transferase 24 U/L (0-32); Blood Urea Nitrogen 31 mg/dL (6-20); Calcium 8.7 mg/dL (8.5-10.5); Carbon Dioxide 28 mmol/L (22-29); Chloride 107 mmol/L (98-107); Creatine Phosphokinase 30 U/L (26-192); Globulin 2.4 g/dL (1.3-4.6); Glomerular Filtration Rate 61.4 mL/min (90-130); Glucose 110 mg/dL (65-115); Osmolality Calculated 301 mOsm/kg (285-295); Potassium 4.4 mmol/L (3.5-5.1); Sodium 142 mmol/L (136-145); Total Bilirubin 0.6 mg/dL (0.15-1.2); Total Protein 5.9 g/dL (6.6-8.7)
[2020-11-20 06:36] LABS: Glucose Point of Care 116 mg/dL (70-110)
[2020-11-20] MEDS: nystatin 100,000 unit/mL UDC 5 mL 100000 UNIT PO (08:22)
[2020-11-20] MEDS: fluticasone nasal spray 16gm Btl 1 SPRAY NASAL (08:22)
[2020-11-20] MEDS: pantoprazole DR 40 mg Tablet PO (08:22)
[2020-11-20] MEDS: montelukast sodium 10 mg Tablet PO (08:22)
[2020-11-20] MEDS: apixaban 5 mg Tablet PO (08:22)
[2020-11-20] MEDS: benzonatate 100 mg Capsule PO (08:22)
--- NOTE | 2020-11-20 09:39 | P.DS_ITS ---
Discharge Providers Date of Admission: 11/02/20 06:04 Date of Discharge: November 20, 2020 Attending Provider at Admission: Emperatriz Webb MD Attending Provider at Discharge: Zachery Clifford MD Primary Care Provider: Salma Craft Diagnoses at Discharge Discharge Diagnosis (1) Acute respiratory failure: Status: Acute Qualifiers: Respiratory failure complication: hypoxia Qualified Code(s): J96.01 - Acute respiratory failure with hypoxia (2) Septic shock: Status: Acute (3) TEETEE (acute kidney injury): Status: Acute (4) DVT (deep venous thrombosis): Status: Acute Qualifiers: DVT location: lower extremity Affected thrombotic vein of extremity: tibial Chronicity: acute Laterality: right Qualified Code(s): I82.441 - Acute embolism and thrombosis of right tibial vein (5) Diabetes: Status: Acute Qualifiers: Diabetes mellitus type: type 2 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 CT was consistent with COVID-19 pneumonia. She was placed on remdesivir and dexamethasone, and a PCR was obtained. CTA was negative for pulmonary embolism. Echocardiogram was performed demonstrating normal EF. Venous duplex was performed demonstrating a DVT and anticoagulation was initiated. During her hospital stay she worsened initially. She was given Tocilizumab as well. She transition from high flow oxygen to BiPAP. By November 06 respiratory failure was impending and intubation occurred. A central line was placed as well. The following day acute kidney injury was noted. IV antibiotics were expanded to linezolid and cefepime. By November 09, she had improved to a degree on her FiO2 that she was able to be extubated. Sputum culture had grown Streptococcus group C. From this point on the patient had very gradual improvement. She was able to be transferred out of the ICU on November 12, where she continued to improve on the Covid unit and eventually when isolation parameters were met to discontinue isolation on medical surgical floor. She eventually tapered down to 5 L of oxygen. She was still winded with activity with a saturation that decreased but strength was adequate for discharge home. Home health was arranged, and she will discharge home today with follow-up with her primary care provider as well as pulmonary. Renal failure she had during her hospital stay resolved significantly. Discharge laboratory White blood cell count 9.8, hemoglobin 9.9, creatinine of 1.0. She completed her entire course of dexamethasone as well as antibiotics prior to discharge. Physical Exam Narrative: EXAM NARRATIVE: General exam no apparent distress Neck supple no lymphadenopathy or thyromegaly Cardiovascular regular rate and rhythm without murmur Lungs a few faint expiratory wheezes, coarse breath sounds that clear somewhat with coughing Abdomen is soft with positive bowel sounds Extremities no cyanosis clubbing or edema Urinary Catheter Management^: Hope: Cath Placed During This Visit: yes, but has since been removed by the nurse Reason for Continuing Indwelling Catheter: Decision to DC Catheter Urinary Catheter Date of Insertion: 11/02/20 Urinary Catheter Time of Insertion: 08:45 Date Urinary Catheter Removed: 11/12/20 Time Urinary Catheter Discontinued: 16:25 Discharge Data Data Completed and Pending: Completed Studies During Hospitalization Category Date Time Status CT angio chest PE protcl [id number] Stat Cat Scan 11/01/20 19:52 Completed XR chest 1V carl ble [id number] Routine Exams 11/08/20 09:21 Completed XR chest 1V carl ble [id number] Routine Exams 11/17/20 08:06 Completed XR chest 1V carl ble [id number] Stat Exams 11/01/20 19:34 Completed XR chest 1V carl ble [id number] Stat Exams 11/06/20 16:51 [place] [id number] Routin e Ultrasound 11/06/20 09:10 Completed CV. echo complete * [id number] Routine Ultrasound 11/03/20 06:00 Completed US renal BI* [id number] Routine Ultrasound 11/10/20 Completed Labs from last 24 hours 11/20/20 11/20/20 11/20/20 06:31 04:34 04:34 WBC 9.8 RBC 3.23 L Hgb 9.9 L Hct 31.5 L MCV 97.5 MCH 30.7 MCHC 31.4 RDW 13.8 Plt Count 229 MPV 10.1 Neut % (Auto) 61.5 Lymph % (Auto) 19.3 [place] % (Auto) 10.5 Eos % (Auto) 7.6 Baso % (Auto) 0.5 Neut # (Auto) 6.01 Lymph # (Auto) 1.9 [place] # (Auto) 1.0 H Eos # (Auto) 0.7 Baso # (Auto) 0.1 Nucleated RBC % (a uto) 0 Nucleated RBCs # 0.0 Sodium 142 Potassium 4.4 Chloride 107 Carbon Dioxide 28 Anion Gap 11.4 BUN 31 H Creatinine 1.0 H GFR Calculation 61.4 L Glucose 110 POC Glucose 116 H Calculated Osmolal ity 301 H Calcium 8.7 Total Bilirubin 0.6 AST 24 ALT 18 Alkaline Phosphata se 55 Creatine Kinase 30 Total Protein 5.9 L Albumin 3.5 Globulin 2.4 11/19/20 11/19/20 11/19/20 20:21 16:32 10:46 WBC RBC Hgb Hct MCV MCH MCHC RDW Plt Count MPV Neut % (Auto) Lymph % (Auto) [place] % (Auto) Eos % (Auto) Baso % (Auto) Neut # (Auto) Lymph # (Auto) [place] # (Auto) Eos # (Auto) Baso # (Auto) Nucleated RBC % (a uto) Nucleated RBCs # Sodium Potassium Chloride Carbon Dioxide Anion Gap BUN Creatinine GFR Calculation Glucose POC Glucose 123 H 124 H 119 H Calculated Osmolal ity Calcium Total Bilirubin AST ALT Alkaline Phosphata se Creatine Kinase Total Protein Albumin Globulin Vitals: Last Vital Signs Temp 97.9 F 11/20/20 07:27 Pulse 88 11/20/20 07:27 Resp 28 H 11/20/20 07:27 BP 147/85 11/20/20 07:27 Pulse Ox 90 11/20/20 07:27 Discharge Plan Discharge Patient Disposition: Home Condition: Stable Prescriptions: New Eliquis 5 mg Tablet 5 mg PO BID@0900,2100 Qty: 60 RF: 0 fluticasone propionate 50 mcg/actuation [place],Suspension 1 spray nasal BID Qty: 1 RF: 0 pantoprazole [Protonix] 40 mg tablet,delayed release (DR/EC) 40 mg PO DAILY Qty: 30 RF: 0 albuterol sulfate [Ventolin HFA] 90 mcg/actuation Hfa Aerosol Inhaler 2 puff inhalation Q4H.RESPIRATORY PRN (Reason: Shortness Of Breath) Qty: 1 RF: 0 Continued loratadine [Claritin] 10 mg tablet 10 mg PO DAILY RF: 0 montelukast 10 mg tablet 10 mg PO DAILY RF: 0 metformin 500 mg tablet extended release 24 hr 500 mg PO DAILY RF: 0 Discontinued atorvastatin 20 mg tablet 20 mg PO DAILY RF: 0 baclofen 10 mg tablet 10 mg PO TID PRN (Reason: Pain) RF: 0 lisinopril 10 mg tablet 10 mg PO DAILY RF: 0 Discharge Orders: Discharge Order (Routine); Ordered 11/20/20 Ordered By: Zachery Clifford Other Ambulatory Orders: DME: Oxygen (Order) Location: None Selected Ordered By: Zachery Clifford DME: Walker (Order) Location: None Selected Ordered By: Zachery Clifford Referrals: [facility] [Outside] Salma Craft FNP [Primary Care Provider] - 4-7 days Bryant Car MD [Physician] - 2 weeks Discharge Diet: Diabetic Discharge Activity: Increase activity as tolerated Patient Instructions: Opioid Safety Activity Restrictions/Additional Instructions: Please discharge with pulse oximeter Return for any worsening Avoid all anti-inflammatories Discharge Attestations Time Spent in Discharge Care*: greater than 30 min Quality Metrics Clinical Quality Measures During this hospital stay, did patient experience: None Coding Level of Care Code Acute g FW DC note Diagnoses Acute respiratory failure J96.01 Respiratory failure complication: hypoxia Septic shock A41.9; R65.21 TEETEE (acute kidney injury) N17.9 DVT (deep venous thrombosis) I82.441 DVT location: lower extremity Affected thrombotic vein of extremity: tibial Chronicity: acute Laterality: right Diabetes E11.69 Diabetes mellitus type: type 2 Diabetes mellitus 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
[2020-11-20] MEDS: albuterol 8 gm MDI 2 PUFF INHALATION (10:42)
[2020-11-20 10:43] LABS: Glucose Point of Care 117 mg/dL (70-110)
--- NOTE | 2020-11-26 15:46 | PC.SOCIAL ---
discharge follow up call made, no answer, message left.
--- NOTE | 2020-11-26 16:05 | PC.SOCIAL ---
discharge follow up call made. patient returned call. states she continues to cough a lot. had her follow up yesterday with her PCP. is taking medications as prescribed and has follow up with Dr. darby scheduled.
== END 2020-11-20 14:00 | disposition home or self-care (01) | DRG 208 ==
LOC: ER 21:03 → ER IP 11-03 05:39 → CSU 11-03 05:39 → ICU 11-06 08:28 → MS 2A 11-12 16:13 → MEDSURG 11-18 13:08
PROVIDERS: Family Medicine; Hospitalist; Internal Medicine; Internal Medicine Critical Care Medicine; Internal Medicine Pulmonary Disease; Admitting Provider Student in an Organized Health Care Education/Training Program; Emergency Provider Emergency Medicine; PCP Nurse Practitioner Family; Visit Provider Internal Medicine
DX: U07.1 COVID-19 (principal); J12.82 Pneumonia due to coronavirus disease 2019; J80 Acute respiratory distress syndrome; R65.21 Severe sepsis with septic shock; Z68.42 Body mass index [BMI] 45.0-49.9, adult; I82.441 Acute embolism and thrombosis of right tibial vein; N17.9 Acute kidney failure, unspecified; E11.9 Type 2 diabetes mellitus without complications; K21.9 Gastro-esophageal reflux disease without esophagitis; I10 Essential (primary) hypertension; E66.01 Morbid (severe) obesity due to excess calories; E78.5 Hyperlipidemia, unspecified; Z98.51 Tubal ligation status
CPT/HCPCS: 36415; 36416; 36592; 36600; 51702; 51798; 71045; 71275; 76770; 76857; 80048; 80051; 80053; 81001; 82274; 82330; 82550; 82728; 82803; 82805; 82962; 83036; 83605; 83615; 83735; 83880; 84100; 84145; 84484; 85007; 85025; 85378; 85610; 85730; 86140; 87040; 87070; 87205; 87426; 87635; 87641; 93005; 93306; 93970; 94002; 94003; 94640; 94660; 94669; 94799; 96365; 96372; 96375; 96376; 97110; 97116; 97161; 97530; 99291; A4570; C1751; J0330; J0692; J1100; J1644; J1650; J1815; J2020; J2060; J2250; J2704; J3010; J3262; J3490; J3535; J7050; J7626; Q9967

== ENCOUNTER 2020-12-28 15:11 | Outpatient (CLI) | payer MEDICAID, SELFPAY ==
[2019-05-09 11:19] VITALS: BP 164/89; BMI 54.0
--- NOTE | 2020-12-28 15:55 | XR_ITS ---
WS: [id number] Exam: XR chest 2V* [id number] Date/Time of Exam: 12/28/2020 3:56 PM Reason For Exam: COUGH Comparison 11/17/2020. Diffuse interstitial densities are noted that may be chronic in nature. Heart size is normal. The med iastinum and bony thorax are unremarkable. No pleural effusions noted. No pneumothorax. Regional bony elements are intact. Recommendations: High-resolution CT scanning of the chest might be helpful for further workup if thou ght to be clinically warranted. XR/XR chest 2V* [id number] IMPRESSION: 1. Diffuse interstitial densities noted that could represent residual infiltrat e or chronic change.
== END 2020-12-28 15:12 | disposition home or self-care (01) ==
PROVIDERS: PCP Nurse Practitioner Family; Visit Provider Nurse Practitioner Family
DX: R05 Cough (principal)
CPT/HCPCS: 71046

== ENCOUNTER 2021-01-05 11:43 | Outpatient (CLI) | payer MEDICAID, SELFPAY ==
[2019-05-09 11:19] VITALS: BP 164/89; BMI 54.0
--- NOTE | 2021-01-05 11:48 | XR_ITS ---
WS: [id number] Portable AP and lateral upright chest, 01/05/2021 Clinical Data: ACUTE BRONCHITIS, COUGH Comparison: PA and lateral chest, 12/28/2020. Findings: Bilateral patchy opacities are present but they have not changed. No nodules, masses or eff usions are seen. The pulmonary vascularity is not remarkable. The heart is normal. XR/XR chest 2V* [id number] Impression: No change in bilateral patchy opacities which could represent pneumonia.
== END 2021-01-05 11:44 | disposition home or self-care (01) ==
PROVIDERS: PCP Nurse Practitioner Family; Visit Provider Family Medicine
DX: J20.9 Acute bronchitis, unspecified (principal); R05.9 Cough, unspecified
CPT/HCPCS: 71046

== ENCOUNTER 2021-01-11 13:49 | Outpatient (CLI) | payer MEDICAID, SELFPAY ==
[2019-05-09 11:19] VITALS: BP 164/89; BMI 54.0
--- NOTE | 2021-01-11 14:02 | CT_ITS ---
WS: [id number] CT CHEST TECHNIQUE: Noncontrast CT of the chest with coronal and sagittal reformatted images. CLINICAL INFORMATION: HISTORY OF COVID, COUGH, DYSPNEA COMPARISON: CT chest November 01, 2020 DLP: 570.[address] scans at [facility] use at least one of these dose optimization techniques: automated e xposure control; mA and/or kV adjustment per patient size (includes targeted exams where dose is matc hed to clinical indication); or iterative reconstruction. FINDINGS: Previously described diffuse hazy ground glass infiltrates have significantly improved and nearly res olved compared to November 01, 2020. Small amount of residual hazy infiltrates in the perihilar upper l obes. No focal pneumonia or pleural fluid. No mediastinal or hilar lymphadenopathy. No axillary lymph adenopathy. Normal GE junction. Right adrenal adenoma measuring 18 mm is unchanged. Hypertrophic ervin ges mid thoracic spine. CT/CT chest wo con [id number] IMPRESSION: 1. Previously described diffuse bilateral hazy ground glass infiltrates have n early resolved. Small amount of residual hazy infiltrate in the perihilar upper lobes. 2. No focal pneumonia or pleural fluid. 3. No mediastinal or hilar lymphadenopathy. 4. Stable right adrenal adenoma.
== END 2021-01-11 13:50 | disposition home or self-care (01) ==
PROVIDERS: PCP Nurse Practitioner Family; Visit Provider Nurse Practitioner Family
DX: R05.9 Cough, unspecified (principal); Z86.16 Personal history of COVID-19; R06.00 Dyspnea, unspecified; D35.01 Benign neoplasm of right adrenal gland; R91.8 Other nonspecific abnormal finding of lung field
CPT/HCPCS: 71250

== ENCOUNTER 2021-10-14 15:15 | Outpatient (CLI) | payer MEDICAID, SELFPAY ==
[2019-05-09 11:19] VITALS: BP 164/89; BMI 54.0
--- NOTE | 2021-10-14 15:22 | XR_ITS ---
WS: [id number] Left knee, 3 views, 10/14/2021 Clinical Data: L KNEE PAIN Comparison: None. Findings: No fractures or dislocations are seen. There is minimal medial joint compartment narrowing with a spu r of the medial tibial plateau. There is a spur of the anterior superior patella. The patella is inta ct. The soft tissues are unremarkable. XR/XR knee LT 3V* [id number] Impression: Mild osteoarthritis of the left knee. Kellgren-Venancio Classification: grade 2 (minimal): definite osteophytes and p ossible joint space narrowing
== END 2021-10-14 15:16 | disposition home or self-care (01) ==
PROVIDERS: PCP Nurse Practitioner Family; Visit Provider Nurse Practitioner Family
DX: M17.12 Unilateral primary osteoarthritis, left knee (principal)
CPT/HCPCS: 73562

== ENCOUNTER 2025-02-14 09:18 | Outpatient (CLI) | payer MEDICAID, SELFPAY ==
[2019-05-09 11:19] VITALS: BP 164/89; BMI 54.0
--- NOTE | 2025-02-14 09:24 | US_ITS ---
WS: [id number] US transvaginal [id number] HISTORY: R PELVIC PAIN COMPARISON: None available. Uterus: 5.8 cm x 4.5 cm x 4.2 cm. Heterogeneous uterus. Heterogeneity within both the anterior and posterior myometrium. There is a mixed echogenicity mass in the posterior myometrium measuring 2.3 x 2.1 x 2.0 cm most consistent with a fibroid. This mass extends to about the posterior endometrium. There are additional areas of heterogeneity throughout the myometrium suspicious for fibroid uterus. Endometrium: 1.2 cm. The entire endometrium is not well visualized. Endometrium is being displaced by the posterior fibroid. Right ovary: 2.4 cm x 2.4 cm x 1.8 cm. Normal size and vascularity, no cystic or solid masses. Left ovary: 2.6 cm x 2.5 cm x 1.7 cm. Normal size and vascularity, no cystic or solid masses. No free fluid in the cul-de-sac. US/US transvaginal [id number] IMPRESSION: 1. Heterogeneous uterus. Mixed echogenicity mass in the posterior myometrium m easures 2.3 x 2.1 x 2.0 cm and is most consistent with a fibroid abutting and d isplacing the endometrium. 2. Additional heterogeneity within the myometrium are probably additional fibr oids which are not well defined. 3. Normal ovaries. 4. Incompletely visualized endometrium due to the fibroids.
== END 2025-02-14 09:19 | disposition home or self-care (01) ==
LOC: RAD 09:19
PROVIDERS: PCP Nurse Practitioner Family; Visit Provider Nurse Practitioner Family
DX: R10.20 Pelvic and perineal pain unspecified side (principal); N85.8 Other specified noninflammatory disorders of uterus; R93.89 Abnormal findings on diagnostic imaging of other specified body structures; D25.9 Leiomyoma of uterus, unspecified
CPT/HCPCS: 76830

== ENCOUNTER 2025-03-14 13:17 | Outpatient (CLI) | payer MEDICAID, SELFPAY ==
[2019-05-09 11:19] VITALS: BP 164/89; BMI 54.0
--- NOTE | 2025-03-14 13:20 | MM_ITS ---
WS: [id number] BILATERAL 3D TOMOSYNTHESIS DIGITAL SCREENING MAMMOGRAPHY WITH CAD CLINICAL INFORMATION: Z12.39 - Encounter for other screening for malignant neop... HISTORY: Screening mammogram. No current complaints. COMPARISON: 2020 TECHNIQUE: Bilateral CC and MLO views. FINDINGS: Scattered fibroglandular densities bilaterally. No suspicious focal mass, asymmetry, calcifications, or architectural distortion. No evidence of malignancy. MM/MM scr BI tomosynthesis [id number] IMPRESSION: DENSITY: There are scattered areas of fibroglandular density. BI-RADS: 1 - Negative. FOLLOW UP: 1 Year Follow-up Recommend return to annual screening mammography.
== END 2025-03-14 13:18 | disposition home or self-care (01) ==
LOC: RAD 13:17
PROVIDERS: PCP Nurse Practitioner Family; Visit Provider Obstetrics & Gynecology
DX: Z12.31 Encounter for screening mammogram for malignant neoplasm of breast (principal); R92.323 Mammographic fibroglandular density, bilateral breasts; R93.89 Abnormal findings on diagnostic imaging of other specified body structures
CPT/HCPCS: 77063; 77067; 84443; 87624